=== PATIENT | female | born 1970 | race Caucasian/White ===

== ENCOUNTER → 2016-03-18 | Emergency (ER) | payer MEDICARE, MEDICAID ==
[2016-03-18 15:30] VITALS: BP 151/97
[2016-03-18 16:11] LABS: Urine Bacteria 1+ (Absent); Urine Bilirubin Negative (Negative); Urine Glucose 3+(>=500 mg/dL) (Negative); Urine Nitrite Positive (Negative)
--- NOTE | 2016-03-20 08:19 | ED ---
Progress - Progress Note Progress Note: Pt's urine cx reveals e. coli - pt was started on cipro - will wait for sensitivities to see if medication needs to be changed. Otherwise, appropriate at this time. Course/Dx - Diagnoses Provider Diagnoses: UTI (urinary tract infection)
--- NOTE | 2016-03-21 15:38 | ED ---
Progress - Progress Note Progress Note: Pt's urine cx reveals e. coli - pt was started on cipro - will wait for sensitivities to see if medication needs to be changed. Otherwise, appropriate at this time. Pt's sens confirms effectiveness of cipro - pt to continue - I've personally e- rx'd 2 x now. Yesterday and again today with change in pharmacy location. Both e -rx's confirmed being sent. Advised pt to call back if she had issues picking this up form pharmacy. F/u w/ PCP as directed. Course/Dx - Diagnoses Provider Diagnoses: UTI (urinary tract infection)
== END | disposition other institution (70) ==
LOC: ED 15:17
DX: N39.0 Urinary tract infection, site not specified (principal); Z53.21 Procedure and treatment not carried out due to patient leaving prior to being seen by health care provider
CPT/HCPCS: 81003; 81015; 87077; 87086; 87186

== ENCOUNTER 2016-03-19 09:30 | Emergency (ER) | payer MEDICARE, MEDICAID ==
[2016-03-19] MEDS ORDERED: NS 0.9% 1000 ML* 1,000 ML IV ONE (14:03)
[2016-03-19] MEDS ORDERED: Ketorolac INJ* 30 MG/ML 1 ML VIAL IV ONE (14:03)
--- NOTE | 2016-03-19 14:44 | RAD ---
CLINICAL HISTORY: Bilateral flank pain, UTI COMPARISON: None TECHNIQUE: Multiple contiguous axial CT scans were obtained of the abdomen and pelvis, without intravenous contrast enhancement. Coronal and sagittal multiplanar reformations are submitted for review. Oral contrast was not administered. FINDINGS: The study is limited by the lack of intravenous contrast. This limits evaluation of the solid organs and vasculature. LUNG BASES: The lung bases are clear. LIVER: The liver is diffusely low in attenuation compared to the spleen. There are no focal hepatic parenchymal masses. The liver is enlarged measuring 19.5 cm in long axis. BILE DUCTS: There is no intrahepatic or extrahepatic biliary dilatation. GALLBLADDER: The gallbladder is normal, without pericholecystic inflammatory change. PANCREAS: The pancreas is normal, without mass or ductal dilatation. SPLEEN: Normal in size and appearance. UPPER GI TRACT: Evaluation of the gastrointestinal tract is limited by incomplete gastric distention. The upper GI tract is unremarkable. SMALL BOWEL AND MESENTERY: The small bowel is normal in contour, course, and caliber. There is no obstruction or dilatation. COLON: The colon is normal in contour, course, caliber. There is no pericolonic inflammatory change. ADRENALS: Normal bilaterally. KIDNEYS: There is a right renal calyceal stone of the midpole measuring up to 0.6 cm. There is no hydronephrosis. There are no appreciable ureteral stones. BLADDER: The bladder is smooth in contour. PELVIC ORGANS: The uterus and adnexa are grossly normal for technique. AORTA: The aorta is normal. IVC: Unremarkable LYMPH NODES: There is no lymphadenopathy by size criteria. ABDOMINAL WALL: There is no evidence for abdominal wall hernia. BONES AND SOFT TISSUES: Mild degenerative changes are noted OTHER: None IMPRESSION: 1. NONOBSTRUCTING RIGHT RENAL CALYCEAL STONE. 2. FATTY LIVER WITH HEPATOMEGALY
[2016-03-19 15:04] LABS: Hematocrit 47 % (35-47); Hemoglobin 15.8 g/dl (12.0-16.0); Mean Corpuscular HGB Conc 34 g/dl (31-36); Mean Corpuscular Hemoglobin 29 pg (27-31); Mean Corpuscular Volume 87 fL (80-97); Mean Platelet Volume 9 um3 (7.4-10.4); Red Blood Count 5.43 10^6/ul (4.0-5.4); Red Cell Distribution Width 15 % (10.5-15); White Blood Count 8.9 10^3/ul (3.5-10.8)
[2016-03-19 15:09] LABS: Urine Bacteria 2+ (Absent); Urine Bilirubin Negative (Negative); Urine Glucose 3+(>=500 mg/dL) (Negative); Urine Nitrite Positive (Negative)
[2016-03-19 15:24] LABS: BUN/Creatinine Ratio 15.5 (8-20); C Reactive Protein 17.57 mg/L (< 5.00); Calcium 9.8 mg/dL (8.6-10.3); EGFR African American 143.3 (>60); EGFR Non-African American 111.4 (>60); Globulin 3.3 g/dL (2-4); Total Bilirubin 0.8 mg/dL (0.2-1.0); Total Protein 7.3 g/dL (6.4-8.9)
[2016-03-19] MEDS ORDERED: Ciprofloxacin 400MG IVPREMIX(* 400 MG/200 ML BAG IVPB SCH (16:00)
--- NOTE | 2016-03-19 16:44 | ED ---
Breana Sequeira Rebecca, scribed for Shaji Dover MD on 03/19/16 at 1406 . Abdominal Pain/Female - HPI Summary HPI Summary: Pt is a 45 y/o F who presents to ED c/o R flank pain. Pain began suddenly 2 weeks ago and has been constant since onset. Pain is discrete to the R flank, without radiation and is characterized as sharp and ranked 8/10. Sx aggravated and alleviated by nothing, unchanged by heat and ice. Additionally c/o dysuria. Denies N/V/D, difficulty urinating and constipation. No PMHx kidney sotnes. - History of Current Complaint Chief Complaint: EDFlankPain Stated Complaint: RT SIDE FLANK PAIN Time Seen by Provider: 03/19/16 13:51 Hx Obtained From: Patient Onset/Duration: Sudden Onset, Lasting Weeks - 2 weeks, Still Present Timing: Constant Severity Initially: Moderate Severity Currently: Severe Pain Intensity: 8 Pain Scale Used: 0-10 Numeric Location: Flank - Right Radiates: No Character: Sharp Aggravating Factor(s): Nothing Alleviating Factor(s): Nothing Associated Signs and Symptoms: Positive: Urinary Symptoms - Dysuria, Other: - Denies difficulty urinating and constipation. Negative: Nausea, Vomiting, Diarrhea Allergies/Adverse Reactions: Allergies Allergy/AdvReac Type Severity Reaction Status Date / Time Metformin Allergy Unknown Unknown Verified 04/09/15 17:43 Reaction Details PMH/Surg Hx/FS Hx/Imm Hx Endocrine/Hematology History: Reports: Hx Diabetes, Hx Anemia Denies: Hx Anticoagulant Therapy, Other Endocrine/Hematological Disorders Cardiovascular History: Reports: Hx Angina, Hx Hypercholesterolemia, Hx Hypertension Denies: Other Cardiovascular Problems/Disorders Respiratory History: Reports: Hx Asthma, Hx Chronic Obstructive Pulmonary Disease (COPD), Hx Sleep Apnea, Other Respiratory Problems/Disorders - SLEEP APNEA GI History: Reports: Hx Gastroesophageal Reflux Disease Denies: Other GI Disorders History: Denies: Other Problems/Disorders Musculoskeletal History: Reports: Hx Arthritis, Hx Back Problems Comment Only: Other Musculoskeletal History - Neuropathy Sensory History: Reports: Hx Contacts or Glasses, Hx Vision Problem Denies: Hx Cataracts, Hx Eye Injury, Hx Eye Prosthesis, Hx Glaucoma, Hx Macular Degeneration, Hx Deafness, Hx Hearing Aid, Other Sensory Impairments Opthamlomology History: Reports: Hx Contacts or Glasses, Hx Vision Problem Denies: Hx Cataracts, Hx Eye Injury, Hx Eye Prosthesis, Hx Glaucoma, Hx Macular Degeneration, Other Sensory Impairments Neurological History: Reports: Hx Developmental Delay, Hx Headaches, Hx Migraine , Other Neuro Impairments/Disorders - diabetic neuropathy Denies: Hx Dementia Psychiatric History: Reports: Hx Anxiety, Hx Eating Disorder, Hx Depression, Hx Panic Disorder, Hx Post Traumatic Stress Disorder, Hx Inpatient Treatment, Hx Community Mental Health Tx, Hx Suicide Attempt, Hx of Violent Episodes Against Others, Hx Substance Abuse, Other Psychiatric Issues/Disorders - borderline personality disorder Denies: Hx Schizophrenia - Surgical History Surgery Procedure, Year, and Place: tubal ligation Hx Anesthesia Reactions: No Infectious Disease History: No Infectious Disease History: Denies: Hx Clostridium Difficile, Hx Hepatitis, Hx Human Immunodeficiency Virus (HIV), Hx Shingles, Hx Tuberculosis, Traveled Outside the [place] in Last 30 Days - Family History Known Family History: Positive: Diabetes, Other - Lung CA - Social History Alcohol Use: None Substance Use Type: Reports: None Smoking Status (MU): Never Smoked Tobacco Review of Systems Positive: Abdominal Pain - R flank pain, Other - Denies constipation. Negative : Vomiting, Diarrhea, Nausea Positive: dysuria, other - Denies difficulty urinating All Other Systems Reviewed And Are Negative: Yes Physical Exam - Summary Physical Exam Summary: VITAL SIGNS: Reviewed. GENERAL: Patient is an obese female who is lying comfortable in the stretcher. Patient is not in any acute respiratory distress. HEAD AND FACE: Normocephalic and atraumatic. EYES: PERRLA, EOMI x 2, No injected conjunctiva. EARS: Hearing grossly intact. Ear canals and tympanic membranes are WNL. MOUTH: Oropharynx within normal limits. NECK: Supple, trachea is midline, no adenopathy, no JVD. CHEST: Symmetric, no tenderness at palpation LUNGS: Clear to auscultation bilaterally. No wheezing or crackles. CVS: RRR,, S1 and S2 present, no murmurs or gallops appreciated. ABDOMEN: Soft, non-tender. No signs of distention. Positive bowel sounds. No rebound no guarding, and no masses palpated. No abdominal bruit or pulsations. Positive Right CVAT's EXTREMITIES: FROM in all major joints, no edema, no cyanosis or clubbing. NEURO: Alert and oriented x 3. No acute neurological deficits. Speech is normal. SKIN: Dry and warm Vital Signs On Initial Exam: Initial Vitals Temp Pulse Resp BP Pulse Ox 97.1 F 111 16 135/86 96 03/19/16 09:32 03/19/16 09:32 03/19/16 09:32 03/19/16 09:32 03/19/16 09:32 Diagnostics - Vital Signs Vital Signs Temp Pulse Resp BP Pulse Ox 03/19/16 12:44 97.3 F 112 18 147/102 96 03/19/16 11:30 98.3 F 113 18 149/90 97 03/19/16 09:32 97.1 F 111 16 135/86 96 - Laboratory Lab Results: Lab Results 03/19/16 03/19/16 03/19/16 Range/Units 14:40 14:40 14:40 WBC 8.9 (3.5-10.8) 10^3/ul RBC 5.43 H (4.0-5.4) 10^6/ul Hgb 15.8 (12.0-16.0) g/dl Hct 47 (35-47) % MCV 87 (80-97) fL MCH 29 (27-31) pg MCHC 34 (31-36) g/dl RDW 15 (10.5-15) % Plt Count 239 (150-450) 10^3/ul MPV 9 (7.4-10.4) um3 Neut % (Auto) 60.1 (38-83) % Lymph % (Auto) 31.9 (25-47) % Potter % (Auto) 5.6 (1-9) % Eos % (Auto) 1.5 (0-6) % Baso % (Auto) 0.9 (0-2) % Absolute Neuts (auto) 5.3 (1.5-7.7) 10^3/ul Absolute Lymphs (auto) 2.8 (1.0-4.8) 10^3/ul Absolute Monos (auto) 0.5 (0-0.8) 10^3/ul Absolute Eos (auto) 0.1 (0-0.6) 10^3/ul Absolute Basos (auto) 0.1 (0-0.2) 10^3/ul Absolute Nucleated RBC 0.01 10^3/ul Nucleated RBC % 0.1 Sodium 130 L (133-145) mmol/L Potassium 4.0 (3.5-5.0) mmol/L Chloride 98 L (101-111) mmol/L Carbon Dioxide 24 (22-32) mmol/L Anion Gap 8 (2-11) mmol/L BUN 9 (6-24) mg/dL Creatinine 0.58 (0.51-0.95) mg/dL Est GFR ( Amer) 143.3 (>60) Est GFR (Non-Af Amer) 111.4 (>60) BUN/Creatinine Ratio 15.5 (8-20) Glucose 393 H (70-100) mg/dL Calcium 9.8 (8.6-10.3) mg/dL Total Bilirubin 0.80 (0.2-1.0) mg/dL AST 73 H (13-39) U/L ALT 88 H (7-52) U/L Alkaline Phosphatase 95 (34-104) U/L C-Reactive Protein 17.57 H (< 5.00) mg/L Total Protein 7.3 (6.4-8.9) g/dL Albumin 4.0 (3.2-5.2) g/dL Globulin 3.3 (2-4) g/dL Albumin/Globulin Ratio 1.2 (1-3) Lipase 36 (11.0-82.0) U/L Urine Color Yellow Urine Appearance Clear Urine pH 6.0 (5-9) Ur Specific [place] 1.035 H (1.010-1.030) Urine Protein Negative (Negative) Urine Ketones Trace H (Negative) Urine Blood Negative (Negative) Urine Nitrate Positive H (Negative) Urine Bilirubin Negative (Negative) Urine Urobilinogen Negative (Negative) Ur Leukocyte Esterase 2+ H (Negative) Urine WBC (Auto) 1+(6-10/hpf) H (Absent) Urine RBC (Auto) 1+(3-5/hpf) H (Absent) Ur Squamous Epith Cells Present H (Absent) Urine Bacteria 2+ H (Absent) Urine Glucose 3+(>=500 mg/dl) H (Negative) Result Diagrams: 03/19/16 14:40 03/19/16 14:40 Lab Statement: Any lab studies that have been ordered have been reviewed, and results considered in the medical decision making process. - CT CT Abd/Pel CT Interpretation Completed By: Radiologist - 1. NONOBSTRUCTING RIGHT RENAL CALYCEAL STONE. 2. FATTY LIVER WITH HEPATOMEGALY Re-Evaluation - Re-Evaluation First Eval Re-Evaluation Time: 15:39 Change: Improved Comment: Discussed results and pt is feeling much better. Abdominal Pain Fem Course/Dx - Course Course Of Treatment: 45 y/o F presents to ED with a CC of R flank pain. Reports pain has been there for approximately 2 weeks. Also reports dyrusia and urinary frequency. Test results within normal limits. Urinalysis has a positive UTI w/ nitrates. Abd/Pel CT shows no ureteral stones. The pt was given IV fluids and Toradol for the pain and the sx have improved. Also given ciprofloxacin for a UTI. The pt will be d/c to home with a follow up with PCP. I discussed all the findings and test results with the patient and patient. Patient was instructed to return to the emergency room immediately if any of the symptoms return or worsens. They understand and agree. They were explained the possibility of an early abdominal pathology which was not detected at this time despite the physical exam and testing. They understand and agree. Abdominal exam before discharge: Soft,NT. No signs of distention. BS present. No rebound no guarding, and no masses palpated. Patient is alert and oriented. Patient is hemodynamically stable. Patient is to follow up with primary care physician in the next 24 hours. Patient and patients parents agree and understands. - Diagnoses Provider Diagnoses: UTI (urinary tract infection), Kidney stone Discharge - Discharge Plan Condition: Stable Disposition: HOME Prescriptions: Ciprofloxacin TAB* [Cipro Tab*] 500 mg PO BID #6 tab Patient Education Materials: Urinary Tract Infection in Women (ED) Referrals: Alberto Gomez MD [Primary Care Provider] - 3 Days Additional Instructions: Take prescription for UTI as directed. Follow up with your primary care physician within the next 3 days. Return to ED for any returning or worsening symptoms. The documentation as recorded by the Breana puckett Rebecca accurately reflects the service I personally performed and the decisions made by me, Shaji Dover MD.
[2016-03-19 17:26] VITALS: BP 128/68
== END 2016-03-19 17:26 | disposition home or self-care (01) ==
LOC: ED 09:30
DX: R10.84 Generalized abdominal pain (principal); R30.0 Dysuria; N39.0 Urinary tract infection, site not specified; N20.0 Calculus of kidney
CPT/HCPCS: 36415; 74176; 80053; 81003; 83690; 85025; 86140; 96374; 96375; 99283; J0744; J1885

== ENCOUNTER 2016-09-08 11:34 | Observation (INO) | payer MEDICARE, MEDICAID ==
[2016-09-08] MEDS ORDERED: NS 0.9% 1000 ML* 1,000 ML IV SCH (11:45)
[2016-09-08 12:08] LABS: Hematocrit 46 % (35-47); Hemoglobin 15.8 g/dl (12.0-16.0); Mean Corpuscular HGB Conc 34 g/dl (31-36); Mean Corpuscular Hemoglobin 30 pg (27-31); Mean Corpuscular Volume 88 fL (80-97); Mean Platelet Volume 9 um3 (7.4-10.4); Red Blood Count 5.25 10^6/ul (4.0-5.4); Red Cell Distribution Width 15 % (10.5-15); White Blood Count 15.9 10^3/ul (3.5-10.8)
[2016-09-08 12:25] LABS: Albumin 4.2 g/dL (3.2-5.2); BUN/Creatinine Ratio 18.6 (8-20); C Reactive Protein 10.68 mg/L (< 5.00); Calcium 9.8 mg/dL (8.6-10.3); EGFR African American 90.6 (>60); EGFR Non-African American 70.4 (>60); Globulin 3.8 g/dL (2-4); Potassium 4.1 mmol/L (3.5-5.0); Total Bilirubin 0.9 mg/dL (0.2-1.0)
[2016-09-08 13:03] LABS: TSH (Thyroid Stimulating Horm) 2.07 mcIU/mL (0.34-5.60)
--- NOTE | 2016-09-08 14:08 | RAD ---
Indication: Dizziness. Diabetic with recent medication change. Comparison: November 15, 2008 Technique: Noncontrast CT vertex of skull through foramen magnum. Report: The sulci, ventricles, and basal cisterns are normal for age. Munoz matter white matter differentiation is preserved without evidence for edema. No intra or extra axial hemorrhage, mass, or fluid collection detected. Unremarkable visualized orbital contents. Indolent thickening of the inner table of the frontal bone. No suspicious calvarial or skull base lesions evident. Unremarkable scalp. The visualized paranasal sinuses and mastoid air spaces are clear. IMPRESSION: Negative unenhanced head CT.
--- NOTE | 2016-09-08 14:12 | RAD ---
INDICATION: Dizziness, elevated white blood count. COMPARISON: Comparison is made with a prior chest x-ray study from April 09, 2015. TECHNIQUE: A portable view of the chest was obtained. FINDINGS: Cardiac and mediastinal contours appear to be within normal limits. The lungs are underinflated and clear. No pleural effusion is seen. IMPRESSION: NO EVIDENCE FOR ACUTE DISEASE.
[2016-09-08 14:21] LABS: Urine Bacteria Absent (Absent); Urine Bilirubin Negative (Negative); Urine Glucose 3+(>=500 mg/dL) (Negative); Urine Nitrite Negative (Negative)
--- NOTE | 2016-09-08 17:42 | ED ---
Robbie Sequeira Salem, scribed for Cooper Ross MD on 09/08/16 at 1704 . Progress - Progress Note Progress Note: Patient was signed out from Dr. Cardoso. 46 y/o F who presents with dizziness since earlier today. She recently had her diabetic medication changed because her blood glucose level was in the 600s. After the change, her BG has been in the 180s. Course/Dx - Course Course Of Treatment: Dr. Durbin (neurology) @ 1650. Recommended pt be admitted for further stroke work up that could not be obtained at the bedside. - Diagnoses Provider Diagnoses: Dizziness - Provider Notifications Discussed Care Of Patient With: Jennifer Olvera Time Discussed With Above Provider: 17:00 Instructed by Provider To: Admit As Inpatient Admit/Transition Orders Completed By ED Provider: Yes Discharge - Discharge Plan Condition: Stable Disposition: ADMITTED TO [facility] The documentation as recorded by the robibeRobbie Salem accurately reflects the service I personally performed and the decisions made by , Cooper Ross MD.
[2016-09-08] MEDS ORDERED: Dextrose 50% Syringe 50 ML* 25 GM/50 ML SYRINGE IV PUSH PRN (18:47)
[2016-09-08] MEDS ORDERED: Albuterol HFA INHALER* 8 gm MDI INH PRN (20:01)
--- NOTE | 2016-09-08 20:49 | RAD ---
Indication: Dizziness since this morning. Recent diabetic medication change. Assess for CVA. Comparison: Noncontrast head CT of the same date. Technique: Idea2a 1.5 Era TS456A with GEM suite. MRI brain without contrast. Report: Diffusion series is negative for acute or subacute ischemia. Susceptibility series is negative for stigmata of hemosiderin deposition to indicate previous hemorrhage. Unremarkable cerebral sulci, ventricles, and basal cisterns. Normal patterns of signal intensity throughout the cerebrum and posterior fossa. No intra or extra-axial lesions or fluid collections evident. Preserved major intracranial flow-voids. Unremarkable orbital contents. Clear paranasal sinuses and mastoid air spaces. No suspicious calvarial or skull base lesion. Unremarkable scalp. IMPRESSION: No evidence for acute or subacute ischemia. Negative unenhanced MRI of the brain.
[2016-09-08] MEDS ORDERED: traZODone TAB* 100 MG PO SCH (21:00)
[2016-09-08] MEDS: Fluticasone NASAL SPRAY 50MCG* 16 gm SPRAY BTL BOTH NARES SCH (21:27)
[2016-09-08] MEDS: Pregabalin CAP(*) 50 MG PO SCH (21:28)
[2016-09-08] MEDS: Heparin VIAL(*) 5000 UNITS/ML VIAL (FIVE THOUSAND) SUBCUT SCH (21:29)
--- NOTE | 2016-09-09 01:48 | CONS ---
CONSULTATION NOTE: DATE OF CONSULT: 09/08/16 REASON FOR CONSULT: Dizziness. HISTORY OF PRESENT ILLNESS: Jennifer Mcnamara is a 46-year-old woman with a history of hypertension, diabetes mellitus type 2, high cholesterol, untreated sleep apnea, post traumatic stress disorder, depression, peripheral neuropathy, history of drug and alcohol use with no use for 5 years, now who presents with acute onset of dizziness. She indicates that she was feeling fine until she took her insulin this morning and she started feeling dizzy. It made it hard for her to walk. It is present at all time. Even if she still still and does not move, she feels like things are moving. She denies any double vision, change in speech, no numbness or weakness in her arms or legs. She denies any chest pain, chest pressure, or palpitations. Jennifer's past medical history and medications are listed below best I could get on history, she did not know all of her history. She follows with Dr. Gomez, primary care, and [facility] for mental healthcare. PAST MEDICAL HISTORY: Includes hypertension, diabetes mellitus type 2 complicated by peripheral neuropathy, sleep apnea for which she has a CPAP, but has not used it for at least a year, high cholesterol, major depression, post traumatic stress disorder, history in the past of drug and alcohol use; however , she indicates she has not used for 5 years. 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 MEDICATIONS: The best she can remember include: 1. Lisinopril 40 p.o. daily. 2. Another blood pressure medication, unknown name. 3. Lasix, unknown dose. 4. Insulin NovoLog 70/30 100 units in the morning prior to breakfast and 100 units prior to dinner. She has just had a breakfast prior today after her initial insulin. 5. Trulicity subcu q. week. 6. Abilify, unknown dose daily. 7. Lyrica 150 mg p.o. t.i.d. ALLERGIES: Include METFORMIN, which she indicates cause nausea. FAMILY HISTORY: Includes mother who has a pacemaker and diabetes. Father had diabetes and at 73. Brother with diabetes mellitus. Sister with thyroid disease. A cousin with Mediterranean thalassemia. She has 4 children who she indicates are healthy. She is not . SOCIAL HISTORY: Jennifer Mcnamara lives with her mom. She does not smoke, drink alcohol or do drugs. She takes care of her mother. REVIEW OF SYSTEMS: There has been no loss of vision. Things are not stable, however. There has been no change in speech. No new numbness or weakness of arms or legs. There has been change in her coordination and gait. She denies any difficulty or change with bowel or bladder habits. There has been no recent rash, fever, cough, drenching night sweats. PHYSICAL EXAM: On examination, Jennifer Mcnamara' most recent temperature was 97.5 degrees Fahrenheit measured temporarily, her pulse was 105, respiratory rate 18 , saturation was 95%, and blood pressure was 141/107. She had a regular cardiac rhythm. Her lungs were clear to auscultation. She had no evidence of peripheral edema. Her peripheral pulses were intact. She was awake, alert, appeared scared and tremulous. There was widened palpebral fissure bilaterally. She had normal language function. Her pupils were equal and responsive to light from 4 to 3 mm. Her fundi were flat. She had full extraocular movement. No clear nystagmus, but hard time holding her gaze in one direction, her eyes would start to drift. This was variable. Her facial expression, sensation, hearing were equal. Palate was upgoing. Tongue was midline. Sternocleidomastoid and trapezius were 5/5 in strength. There was no pronator drift; however, there was a bouncing of her limbs, which did not look like myoclonus, and seemed to affect smooth movement when trying to touch her nose with her left greater than right upper extremity. She gave good resistance in her arms and her legs, there was some variability. She also had a bounciness when holding up her legs and question of dysmetria bilaterally in the legs. Her reflexes were 1+ to 2+ in the upper extremities and symmetric, absent lower extremities. Toes were flexor response. She had difficulty feeling vibration in her legs; however, this was variable, in her fingertips was diminished. She was able to give correct answers on proprioception at the toes. She denied any asymmetries to pinprick, cold or light touch, or length- dependent changes, albeit, as stated she had a neuropathy. Gait was not tested because of clinical situation. DIAGNOSTIC STUDIES/LAB DATA: Includes CBC with a white count of 15.9 and absolute neutrophils were 10.3. Her complete metabolic panel showed glucose elevated at 186, C-reactive protein was 10.68, TSH was 2.07. Her urinalysis showed high esterase, squamous epithelial cells, hyaline casts as well as glucose that was 3+, noted to be equal to or over 500 mg/dL. She had a CT of the brain, which report is not showing any pathology. There were some hypodensities in the cerebellar area, but it is hard to tell whether that is artifact or significant. Her chest x-ray showed no infiltrates. IMPRESSION: Jennifer Mcnamara is a 46-year-old woman with history of hypertension, diabetes, high cholesterol, and sleep apnea, who presents with acute onset of dizziness, which to her is an instability that is present at all times. Differential diagnosis includes stroke in setting of significant risk factors. One can not exclude labyrinthitis, albeit no nystagmus was noted. Her exam, however, is abnormal. There are some non-physiologic findings which cloud the picture of whether there could be cerebellar stroke and accordingly MRI Brain is needed to clarify. Would admit her to hospital as she is quite impaired at this time, evaluate with MRI and then further stroke workup if pathology is found. Supportive care should be provided and she may need further help with treatment of diabetes. I had spoken to nursing in the ER about getting further outpatient records as the patient is not clear in all her medications and diagnoses. Her history and exam are somewhat variable clouding the picture. [id number]/[facility] #: [id number] KI
--- NOTE | 2016-09-09 04:03 | HP ---
CC: Dr. Alberto Gomez.* HISTORY AND PHYSICAL: DATE OF ADMISSION: 09/08/16 PRIMARY CARE PHYSICIAN: Dr. Alberto Gomez. ATTENDING PHYSICIAN: Dr. Colten Cole * (dictated by Renetta Mcclure NP). CHIEF COMPLAINT: Dizziness. HISTORY OF PRESENT ILLNESS: Ms. Mcnamara is a 46-year-old female with past medical history significant for diabetes mellitus, hypertension, hyperlipidemia, peripheral neuropathy, obstructive sleep apnea who presented to the hospital today with sudden onset of dizziness after taking hormone insulin this morning. The patient also reports difficulty walking due to the dizziness. She reports that she has had nothing to the make the dizziness get better, it is even present when she is lying still. The patient denies any recent fever, chills, chest pain, shortness of breath, nausea, vomiting, diarrhea. The patient reports an occasional cough. She reports nasal congestion for the last few weeks. She denies any visual changes such as blurry vision, double vision. The patient describes her dizziness as a room spinning. The patient denies any numbness or tingling or weakness. She denies any speech deficits. Due to the concern the patient presented to the emergency room for further evaluation of her symptoms. While in the emergency room, the patient received some normal saline. She had labs that were significant for an elevated white count of 15.9, she had a urinalysis significant for trace leukocyte esterase, squamous epithelial cells present and hyaline casts present. The patient's EKG showed a sinus rhythm. No acute signs of ischemia. The patient had a chest x-ray showing no active disease. She also had a head CT that was negative. The patient was seen in consultation by Neurology while in the emergency room. She continued to have the dizziness. Neurology was unable to determine if the patient's dizziness was central or peripherally caused and they recommend the patient be admitted for an MRI. Hospitalists were asked to evaluate the patient for admission. HOME MEDICATIONS: Include: 1. Trazodone 100 mg oral daily at bedtime. 2. Topamax 100 mg oral daily every morning. 3. Albuterol inhaler 1 puff inhalation every 4 hours as needed for shortness of breath. 4. Lyrica 150 mg oral 3 times daily. 5. Asmanex 220 mcg 2 puffs inhalation daily. 6. Metoprolol tartrate 25 mg oral twice daily. 7. Meloxicam 7.5 mg oral twice daily. 8. Lisinopril/hydrochlorothiazide 20/25 one tablet oral daily. 9. Lidocaine Jelly 2% apply topical twice daily. 10. NovoLog Mix 70/30 insulin 100 units subcutaneous twice daily. 11. Furosemide 40 mg oral twice daily. 12. Fluticasone nasal spray 2 sprays to both nares twice daily. 13. Etodolac 400 mg oral every 4 hours as needed for pain. 14. Trulicity 1.5 mg subcutaneous every 7 days. 15. Pristiq 100 mg oral daily. 16. Atorvastatin 40 mg oral daily. 17. Amlodipine 5 mg oral daily. 18. Abilify 10 mg oral daily. ALLERGIES: Include METFORMIN causes a GI upset. FAMILY HISTORY: The patient's father had a history of a myocardial infarction. The patient's mother and father had a history of diabetes mellitus. The patient 's father had a history of unknown cancer. She had a history of a cousin who had a CVA at age 60. SOCIAL HISTORY: The patient denies tobacco, alcohol or drug use. She is a former alcoholic and polysubstance drug abuser, but has been clean for 5 years. The patient is disabled. She lives with her mother. Her mother Karen Mcnamara will be her surrogate decision maker in the event that she is unable to make decisions for herself. REVIEW OF SYSTEMS: I performed a 14-point review of systems. All the pertinent positives and negatives are mentioned in the history of present illness. Remaining review of systems are negative. PHYSICAL EXAMINATION GENERAL APPEARANCE: The patient is alert, pleasant appears to be in no acute distress. VITAL SIGNS: Temperature 97.5, heart rate 105, respiratory rate 18, O2 sat 95% on room air, blood pressure 141/70. HEENT: Normocephalic, atraumatic. Pupils are equal and reactive to light. Extraocular movements are intact. NECK: Supple. RESPIRATORY: There is no accessory muscle use and the lungs are clear to auscultation bilaterally. CARDIOVASCULAR: Regular rate and rhythm. S1, S2 present. There is no murmur, rubs or gallops. ABDOMEN: Soft, nontender, nondistended. Bowel sounds present x4. EXTREMITIES: There is no lower extremity edema. DP and PT pulses are 2+ and symmetric. MUSCULOSKELETAL: There is no clubbing or cyanosis noted. The patient exhibits good strength in all extremities. NEUROLOGIC: The patient is alert and oriented x4. Cranial nerves II through XII are grossly intact. The patient is able to perform pakron-oc-smey bilaterally without difficulty. She is also able to perform heel from ankle to cardona bilaterally without difficulty. The patient is able to lift both lower extremities off of the bed without difficulty. No nystagmus was noted. Hand willower were equal. The patient's smile was symmetric and tongue was midline. PSYCHOLOGICAL: The patient is calm and cooperative. SKIN: There is no rashes or abnormalities seen. DIAGNOSTIC STUDIES/LABORATORY DATA: Sodium 137, potassium 4.1, chloride 105, CO2 25, BUN 16, creatinine 0.86, glucose 186. CRP 10.68, TSH 2.07. White blood cell count 15.9, hemoglobin 15.8, hematocrit 46 and platelet count 355. Urinalysis significant for trace leukocyte esterase, present squamous epithelial cells, hyaline casts present and glucose 3+. EKG from today shows a sinus rhythm at the rate of 98. There are no signs of acute ischemia and this EKG is similar to previous EKG from 05/16/15. 1. Chest x-ray from today, radiologist's impression: No evidence for active disease. 2. Head CT from today, radiologist's impression: Negative unenhanced head CT. IMPRESSION: Ms. Mcnamara is a 46-year-old female with past medical history significant for diabetes mellitus, hypertension, hyperlipidemia, obstructive sleep apnea and peripheral neuropathy who presents to the emergency room with complaints of dizziness. She will be admitted under observation for dizziness, rule out cerebrovascular accident. ASSESSMENT/PLAN: 1. Dizziness. Rule out cerebrovascular accident. The patient will be monitored on telemetry. She will have neurological checks. Neurology has already seen the patient in consultation and recommends that patient have an MRI. We will hold on further testing until the patient's MRI is completed. We will check a fasting lipid panel in the morning in addition to a hemoglobin A1C. We will also check orthostatic vital signs. 2. Leucocytosis. Unclear cause at this time. Chest xray and urinalysis negative. We will recheck a CBC in the morning. Pt denies any recent cold symptoms or fevers. 3. Diabetes mellitus. We will hold the patient's 70/30 and Trulicity. We will place her on Lispro sliding scale for now and add in Lantus if needed. We will check fingersticks a.c. and h.s. We will make further recommendation based off of what the patient's hemoglobin A1c is. 4. Hypertension. For now we are going to hold the patient's lisinopril, hydrochlorothiazide, metoprolol, furosemide and amlodipine as the patient has been hypotensive to normotensive during her time in the emergency room. 5. Hyperlipidemia. The patient is on atorvastatin. We will continue her atorvastatin and adjust as needed after her fasting lipid panel in the morning. 6. Obstructive sleep apnea. The patient is supposed to use a CPAP. The patient told Dr. Durbin that she has been noncompliant although she did not tell me that. We will continue the patient's CPAP while she in the hospital. 7. Asthma. The patient does not appear to be in acute asthma exacerbation. We will continue her home Asmanex and have an albuterol inhaler available as needed for any shortness of breath. 7. Depression. The patient will be continued on her home Abilify, Pristiq, trazodone and Topamax. 9. Fluids, electrolytes and nutrition: The patient will be on a consistent carbohydrate and heart healthy diet. 10. Code status: Full code. 11. DVTs prophylaxis: The patient is a moderate risk and will have subcu heparin. 12. Disposition: Observation. TIME SPENT: Time spent for this admission was 60 minutes, greater than half the time was spent with the patient discussing past medical history, medications and the events leading up to her arrival today and performing a physical examination. The case has been reviewed with the attending, Dr. Cole, who agrees with the plan of care. Reviewed by STANLEY FELICIANO 09/11/16 1520 [id number]/[facility] #: [id number] KI
[2016-09-09] MEDS: Heparin VIAL(*) 5000 UNITS/ML VIAL (FIVE THOUSAND) SUBCUT SCH (05:48)
[2016-09-09 05:57] LABS: Hematocrit 44 % (35-47); Hemoglobin 14.6 g/dl (12.0-16.0); Mean Corpuscular HGB Conc 34 g/dl (31-36); Mean Corpuscular Hemoglobin 30 pg (27-31); Mean Corpuscular Volume 89 fL (80-97); Mean Platelet Volume 9 um3 (7.4-10.4); Red Blood Count 4.88 10^6/ul (4.0-5.4); Red Cell Distribution Width 15 % (10.5-15); White Blood Count 12.6 10^3/ul (3.5-10.8)
[2016-09-09] MEDS: Pregabalin CAP(*) 50 MG PO SCH (08:34)
[2016-09-09] MEDS: Fluticasone NASAL SPRAY 50MCG* 16 gm SPRAY BTL BOTH NARES SCH (08:38)
[2016-09-09] MEDS: Insulin LISPRO* 1 UNITS UNIT SUBCUT SCH ×2 (08:39→12:41)
[2016-09-09] MEDS ORDERED: ARIPiprazole TAB* 5 MG PO SCH (09:00)
[2016-09-09] MEDS ORDERED: Mometasone 220 MCG MDI INH SCH (09:00)
[2016-09-09] MEDS ORDERED: Desvenlafaxine (NF) 50 MG TAB PO SCH (09:00)
[2016-09-09] MEDS ORDERED: Furosemide TAB* 40 MG PO SCH (09:00)
[2016-09-09] MEDS ORDERED: Topiramate TAB(*) 100 MG PO SCH (09:00)
[2016-09-09] MEDS ORDERED: Atorvastatin* 40 MG TAB PO SCH (09:00)
--- NOTE | 2016-09-09 11:48 | PN ---
Subjective Date of Service: 09/09/16 Interval History: Ms. Mcnamara states that her dizziness is much improved today and she feels ready to go home. She remains a bit unsteady on her feet but denies dizziness with bed mobility or Objective Active Medications: Albuterol (Ventolin Hfa Inhaler*) 2 puff INH Q6H PRN Aripiprazole (Abilify Tab*) 10 mg PO DAILY RONNELL Atorvastatin Calcium (Lipitor*) 40 mg PO DAILY RONNELL Desvenlafaxine Succinate (Pristiq (Nf)) 100 mg PO DAILY RONNELL Dextrose (D50w Syringe 50 Ml*) 12.5 gm IV PUSH .FOR FS < 60 - SS PRN Fluticasone Propionate (Flonase Nasal Sayner 50mcg*) 2 spray BOTH NARES BID RONNELL Furosemide (Lasix Tab*) 40 mg PO 0900,1800 RONNELL Heparin Sodium (Porcine) (Heparin Vial(*)) 5,000 units SUBCUT Q8HR RONNELL Insulin Human Lispro (Humalog*) 0 - 15 units SUBCUT AC RONNELL Mometasone Furoate (Asmanex 220 Mcg Mdi *) 2 puff INH DAILY RONNELL Pregabalin (Lyrica Cap(*)) 150 mg PO TID RONNELL Topiramate (Topamax(*)) 100 mg PO QAM RONNELL Trazodone HCl (Desyrel Tab*) [facility] Vital Signs 09/08/16 09/08/16 09/08/16 17:30 17:45 18:00 Temperature Pulse Rate 95 95 Respiratory 18 16 22 Rate Blood Pressure 92/61 97/64 (mmHg) O2 Sat by Pulse 96 94 Oximetry 09/08/16 09/08/16 09/08/16 18:30 19:03 21:28 Temperature 98.3 F Pulse Rate 96 102 Respiratory 18 18 18 Rate Blood Pressure 106/67 112/69 (mmHg) O2 Sat by Pulse 95 97 Oximetry 09/08/16 09/09/16 09/09/16 23:28 00:40 04:05 Temperature 98.0 F 98.5 F Pulse Rate 100 111 Respiratory 16 16 16 Rate Blood Pressure 117/65 107/69 (mmHg) O2 Sat by Pulse 93 91 Oximetry 09/09/16 09/09/16 09/09/16 04:06 04:08 07:49 Temperature 98.1 F 98.3 F 97.6 F Pulse Rate 98 145 108 Respiratory 18 20 16 Rate Blood Pressure 119/71 128/60 126/79 (mmHg) O2 Sat by Pulse 98 97 95 Oximetry 09/09/16 09/09/16 09/09/16 08:26 08:34 10:34 Temperature Pulse Rate 120 Respiratory 14 18 16 Rate Blood Pressure (mmHg) O2 Sat by Pulse 96 Oximetry Oxygen Devices in Use Now: None Appearance: Female sitting up in bed in NAD Eyes: No Scleral Icterus Ears/Nose/Mouth/Throat: Mucous Membranes Moist Neck: Trachea Midline Respiratory: Symmetrical Chest Expansion and Respiratory Effort, Clear to Auscultation Cardiovascular: NL Sounds; No Murmurs; No JVD, No Edema Abdominal: NL Sounds; No Tenderness; No Distention Lymphatic: No Cervical Adenopathy Extremities: No Edema Skin: No Rash or Ulcers Neurological: Alert and Oriented x 3, NL Muscle Strength and Tone Nutrition: Taking PO's Result Diagrams: 09/09/16 05:29 09/08/16 11:59 Additional Lab and Data: Lab Results 09/08/16 09/08/16 09/08/16 Range/Units 11:59 11:59 11:59 WBC 15.9 H (3.5-10.8) 10^3/ul RBC 5.25 (4.0-5.4) 10^6/ul Hgb 15.8 (12.0-16.0) g/dl Hct 46 (35-47) % MCV 88 (80-97) fL MCH 30 (27-31) pg MCHC 34 (31-36) g/dl RDW 15 (10.5-15) % Plt Count 355 (150-450) 10^3/ul MPV 9 (7.4-10.4) um3 Neut % (Auto) 64.7 (38-83) % Lymph % (Auto) 26.2 (25-47) % [place] % (Auto) 6.6 (1-9) % Eos % (Auto) 1.4 (0-6) % Baso % (Auto) 1.1 (0-2) % Absolute Neuts (auto) 10.3 H (1.5-7.7) 10^3/ul Absolute Lymphs (auto) 4.2 (1.0-4.8) 10^3/ul Absolute Monos (auto) 1.0 H (0-0.8) 10^3/ul Absolute Eos (auto) 0.2 (0-0.6) 10^3/ul Absolute Basos (auto) 0.2 (0-0.2) 10^3/ul Absolute Nucleated RBC 0.01 10^3/ul Nucleated RBC % 0.1 INR (Anticoag Therapy) 0.92 (0.89-1.11) APTT 30.9 (26.0-36.3) seconds Sodium (133-145) mmol/L Potassium (3.5-5.0) mmol/L Chloride (101-111) mmol/L Carbon Dioxide (22-32) mmol/L Anion Gap (2-11) mmol/L BUN (6-24) mg/dL Creatinine (0.51-0.95) mg/dL Est GFR ( Amer) (>60) Est GFR (Non-Af Amer) (>60) BUN/Creatinine Ratio (8-20) Glucose (70-100) mg/dL Lactic Acid (0.5-2.0) mmol/L Calcium (8.6-10.3) mg/dL Magnesium (1.9-2.7) mg/dL Total Bilirubin (0.2-1.0) mg/dL AST (13-39) U/L ALT (7-52) U/L Alkaline Phosphatase (34-104) U/L Total Creatine Kinase (10-223) U/L CK-MB (CK-2) (0.6-6.3) ng/mL Troponin I (<0.04) ng/mL C-Reactive Protein (< 5.00) mg/L B-Natriuretic Peptide 16 ( - 100) pg/mL Total Protein (6.4-8.9) g/dL Albumin (3.2-5.2) g/dL Globulin (2-4) g/dL Albumin/Globulin Ratio (1-3) Lipase (11.0-82.0) U/L TSH (0.34-5.60) mcIU/mL 09/08/16 09/08/16 Range/Units 11:59 11:59 WBC (3.5-10.8) 10^3/ul RBC (4.0-5.4) 10^6/ul Hgb (12.0-16.0) g/dl Hct (35-47) % MCV (80-97) fL MCH (27-31) pg MCHC (31-36) g/dl RDW (10.5-15) % Plt Count (150-450) 10^3/ul MPV (7.4-10.4) um3 Neut % (Auto) (38-83) % Lymph % (Auto) (25-47) % [place] % (Auto) (1-9) % Eos % (Auto) (0-6) % Baso % (Auto) (0-2) % Absolute Neuts (auto) (1.5-7.7) 10^3/ul Absolute Lymphs (auto) (1.0-4.8) 10^3/ul Absolute Monos (auto) (0-0.8) 10^3/ul Absolute Eos (auto) (0-0.6) 10^3/ul Absolute Basos (auto) (0-0.2) 10^3/ul Absolute Nucleated RBC 10^3/ul Nucleated RBC % INR (Anticoag Therapy) (0.89-1.11) APTT (26.0-36.3) seconds Sodium 137 (133-145) mmol/L Potassium 4.1 (3.5-5.0) mmol/L Chloride 105 (101-111) mmol/L Carbon Dioxide 25 (22-32) mmol/L Anion Gap 7 (2-11) mmol/L BUN 16 (6-24) mg/dL Creatinine 0.86 (0.51-0.95) mg/dL Est GFR ( Amer) 90.6 (>60) Est GFR (Non-Af Amer) 70.4 (>60) BUN/Creatinine Ratio 18.6 (8-20) Glucose 186 H (70-100) mg/dL Lactic Acid 1.1 (0.5-2.0) mmol/L Calcium 9.8 (8.6-10.3) mg/dL Magnesium 2.0 (1.9-2.7) mg/dL Total Bilirubin 0.90 (0.2-1.0) mg/dL AST 22 (13-39) U/L ALT 30 (7-52) U/L Alkaline Phosphatase 98 (34-104) U/L Total Creatine Kinase 70 (10-223) U/L CK-MB (CK-2) 2.0 (0.6-6.3) ng/mL Troponin I 0.00 (<0.04) ng/mL C-Reactive Protein 10.68 H (< 5.00) mg/L B-Natriuretic Peptide ( - 100) pg/mL Total Protein 8.0 (6.4-8.9) g/dL Albumin 4.2 (3.2-5.2) g/dL Globulin 3.8 (2-4) g/dL Albumin/Globulin Ratio 1.1 (1-3) Lipase 29 (11.0-82.0) U/L TSH 2.07 (0.34-5.60) mcIU/mL Assess/Plan/Problems-Billing Assessment: Ms. Mcnamara is a 46 yo female with a PMH of DM, HTN, HLD, peripheral neuropathy, and IGLESIA who was admitted on 09/09/16 with dizziness with concern for possible ischemic CVA. - Patient Problems (1) Dizziness Comment: - Resolved today. - Appreciate neurology consult. CT and MRI brain negative. - Suspect dizziness secondary to labrynthitis. (2) Diabetes Comment: - Hgb1ac 10.7. - Strongly encouraged patient to follow up with PCP and perhaps [facility]. - Resume home meds. (3) HTN (hypertension) Comment: - SBP well running 80-110s while only on furosemide. - Plan for patient to continue furosemide but hold metoprolol and amlodipine until follow up with PCP. (4) HLD (hyperlipidemia) Comment: - Continue atorvastatin. (5) DVT prophylaxis Comment: - Heparin subQ (6) Full code status Status and Disposition: OBV. Discharge to home.
[2016-09-09 11:57] VITALS: BP 115/66
[2016-09-09] MEDS ORDERED: Metoprolol Tartrate TAB* 25 MG PO ONE (12:20)
--- NOTE | 2016-09-09 20:10 | CONS ---
CONSULTATION REPORT: DATE OF CONSULT: 09/09/16 HISTORY OF PRESENT ILLNESS: Jennifer Mcnamara was seen in the emergency room yesterday for acute onset of dizziness with shakiness and had a significantly abnormal examination with some nonphysiologic findings. This occurred in the setting of hypertension, diabetes type 2 with peripheral neuropathy, high cholesterol, untreated sleep apnea, major depression, posttraumatic stress disorder. Since admitted, she had an MRI of the brain which showed no evidence of stroke. Her symptoms have markedly improved and she is feeling close to normal at this time. She has just a little bit of shakiness left. It was revealed on today's visit that there has been significant stress taking care of her mother at home and her mother is refusing help at home. In the hospital though, it has been noted her glucose control is quite poor with a hemoglobin A1c of 10.7 and elevated glucose on laboratory testing at 264. MEDICATIONS: List was reviewed. PHYSICAL EXAM: On examination today, Jennifer Mcnamara' blood pressure was 115/66, her pulse was 110, her respiratory rate was 16, her oxygen was 93%, temperature was 97.3 degrees Fahrenheit. She had a regular cardiac rhythm. Her lungs were clear to auscultation. There was no carotid bruit. At the time of examination , her pulse was improved, at ~ 80. She was awake, alert, articulate. She had full extraocular movements with no nystagmus. Full russell to confrontation. Her facial expression was symmetric, there was no dysarthria. There was normal bulk and tone, no pronator drift. She gave good strength in her upper and lower extremities with normal vaesbr-hx-riga and goza-vg-amwg movements. No evidence of tremor was noted. Her reflexes were 1+ in the upper extremities, absent in the lower extremities. Her Romberg was negative. She walked independently without difficulty. There was no evidence of ataxia. DIAGNOSTIC STUDIES/LAB DATA: Data includes complete blood count with a total white count of 12.6 which has improved from 15.9 on admission. Her glucose was 264 this morning, repeat at 359. Her lipid profile showed a total cholesterol of 141, LDL of 50, HDL of 29, with triglycerides 311. Her TSH on admission was 2.07. Her MRI of the brain was reviewed directly and showed no evidence of new ischemic lesion and no evidence of any lesion that would explain her symptoms on presentation. IMPRESSION: Jennifer Mcnamara is a 46-year-old woman with history of diabetes with peripheral neuropathy under poor control, hypertension, high cholesterol, untreated sleep apnea, posttraumatic stress disorder, major depression who has been under quite a bit of stress taking care of her mother. She came in with diffuse shaking and symptoms of dizziness which have now resolved. Her MRI was negative for stroke or any lesion to explain her symptoms. Certainly, stress may have contributed to presentation. There was significant nonphysiologic findings on exam. Hospitalist team are working with her regarding education on her other internal medicine problems including her glucose control; this has been in poor control in the past per patient report. She needs to work closely with her primary care. At this point, no further neurologic input is suggested. TIME SPENT: Over 25 minutes was spent in direct [id number] patient care, over 50% of the time was spent in education and counseling regarding the above issues. All questions were answered. [id number]/[facility] #: [id number] KI
--- NOTE | 2016-09-10 16:12 | DS ---
CC: Dr. Gomez * [facility] MEDICINE DISCHARGE SUMMARY: DATE OF ADMISSION: 09/08/16 DATE OF DISCHARGE: 09/09/16 ATTENDING PHYSICIAN: Dr. Raf Ramos *(dictation provided by Dulce Maria Kumar NP ). PRIMARY CARE PHYSICIAN: Dr. Gomez. PRIMARY DIAGNOSIS: Dizziness with suspected labyrinthitis. SECONDARY DIAGNOSES: 1. Type 2 diabetes, insulin dependent. 2. Hypertension. 3. Obstructive sleep apnea. 4. Asthma. 5. Gastroesophageal reflux disease. 6. History of alcoholism. MEDICATIONS: At the time of discharge are: 1. Albuterol inhaler p.r.n. 2. Abilify 10 mg p.o. daily. 3. Atorvastatin 40 mg daily. 4. Desvenlafaxine 100 mg p.o. daily. 5. Fluticasone nasal spray b.i.d. 6. Furosemide 40 mg b.i.d. 7. Asmanex 2 puffs inhaled daily. 8. Pregabalin 150 mg p.o. t.i.d. 9. Topamax 100 mg p.o. q.a.m. 10. Trazodone 100 mg p.o. at bedtime. 11. Trulicity 1.5 mg subcutaneously q.7 days. 12. Lodine 400 mg p.o. q.8 hours p.r.n. 13. NovoLog 70/30, 80 units subcutaneously b.i.d. 14. Lidocaine jelly p.r.n. 15. Mobic 7.5 mg p.o. b.i.d. 16. Metoprolol tartrate 25 mg p.o. b.i.d. Hold lisinopril/hydrochlorothiazide until followup with primary care. HOSPITAL COURSE: Ms. Mcnamara is a 46-year-old female with past medical history of diabetes, hypertension, hyperlipidemia, peripheral neuropathy, and obstructive sleep apnea, who presented to the hospital on 09/08/16 with concern for dizziness. Please see the dictated H and P from Renetta Arredondo for complete details. In brief, the patient had reported dizziness described as a room spinning sensation. In the emergency room, she had an elevated white blood cell count of 15.9. Urinalysis was positive for trace leuk esterase only with no bacteria. Her EKG showed sinus rhythm with no evidence of ischemia. She had a CT of the brain that was negative. Ms. Mcnamara was placed in the hospital overnight for observation. She was seen in consultation by Dr. Durbin from Neurology who thought that perhaps the patient did have labyrinthitis, but was concerned for posterior CVA and therefore, she went on for an MRI of the brain. MRI of the brain was read as follows "no evidence for acute or subacute ischemia, negative unenhanced MRI of the brain." This morning, Ms. Mcnamara states that she is feeling much better. She states that she still feels a little bit unsteady on her feet, but does not have any clear dizziness. She has been ambulating in her room without difficulty and she is eager for discharge to home. Ms. Mcnamara is medically stable for discharge to home. I have noted that while inpatient, her blood pressure has been low running systolically 89 to about 120. This is while holding her lisinopril/ hydrochlorothiazide. My recommendation is that she continue on her furosemide and her metoprolol but that she hold lisinopril/hydrochlorothiazide until she follows up with Dr. Gomez which should be on of this week. I discussed this with the patient and she knows that she should take her blood pressure at home and provide this to Dr. Gomez. I also noted during her hospitalization that her blood sugar has been quite elevated and that her hemoglobin A1c is 10.7. This had been a longstanding problem for the patient. She states that she will be following with Dr. Gomez and she also reports following up with the [facility] in the past. DISPOSITION: Home. DIET: Consistent carbohydrate, low fat, low salt. ACTIVITY: As tolerated. FOLLOWUP PLANS: Please follow up with Dr. Gomez on as arranged. TIME SPENT: Approximately 75 minutes was spent on the discharge of this patient , more than half that time spent with the patient at the bedside reviewing the events leading up to this hospitalization, performing the physical examination, and reviewing the plan of care. DULCE MARIA KUMAR NP [id number]/[facility] #: [id number] KI
== END 2016-09-09 15:12 | disposition home or self-care (01) ==
LOC: ED 11:34 → MEDTELE 17:00
PROVIDERS: ADMIT Internal Medicine; ATTEND Internal Medicine
DX: R42 Dizziness and giddiness (principal); E11.42 Type 2 diabetes mellitus with diabetic polyneuropathy; Z79.4 Long term (current) use of insulin; I10 Essential (primary) hypertension; G47.33 Obstructive sleep apnea (adult) (pediatric); J45.909 Unspecified asthma, uncomplicated; K21.9 Gastro-esophageal reflux disease without esophagitis; E78.5 Hyperlipidemia, unspecified; F10.20 Alcohol dependence, uncomplicated; Z88.8 Allergy status to other drugs, medicaments and biological substances; Z79.899 Other long term (current) drug therapy; F32.9 Major depressive disorder, single episode, unspecified
CPT/HCPCS: 36415; 70450; 70551; 71010; 80053; 80061; 81003; 81015; 82550; 82553; 82947; 83036; 83605; 83690; 83735; 83880; 84443; 84484; 85025; 85610; 85730; 86140; 87086; 93005; 94640; 96360; 96372; 99284; A9270-GY; G0378; J1644

== ENCOUNTER 2016-12-15 10:03 | Observation (INO) | payer MEDICARE, MEDICAID ==
[2016-12-15] MEDS ORDERED: NS 0.9% 1000 ML* 1,000 ML IV ONE ×2 (10:32→12:26)
[2016-12-15 11:05] LABS: Hematocrit 44 % (35-47); Hemoglobin 14.8 g/dl (12.0-16.0); Mean Corpuscular HGB Conc 34 g/dl (31-36); Mean Corpuscular Hemoglobin 29 pg (27-31); Mean Corpuscular Volume 87 fL (80-97); Mean Platelet Volume 8 um3 (7.4-10.4); Red Cell Distribution Width 15 % (10.5-15); White Blood Count 11.4 10^3/ul (3.5-10.8)
[2016-12-15 11:19] LABS: Acetaminophen < 15 mcg/mL; Alcohol < 10 mg/dL (<10); Salicylate < 2.50 mg/dL (<30)
[2016-12-15 11:23] LABS: Troponin I 0.01 ng/mL (<0.04)
[2016-12-15 11:34] LABS: TSH (Thyroid Stimulating Horm) 1.38 mcIU/mL (0.34-5.60)
[2016-12-15 11:38] LABS: ALT 29 U/L (7-52); Albumin 3.9 g/dL (3.2-5.2); Alkaline Phosphatase 115 U/L (34-104); BUN/Creatinine Ratio 30.1 (8-20); Blood Urea Nitrogen 25 mg/dL (6-24); CO2 Carbon Dioxide 25 mmol/L (22-32); Calcium 9.4 mg/dL (8.6-10.3); Chloride 98 mmol/L (101-111); EGFR African American 94.4 (>60); EGFR Non-African American 73.4 (>60); Globulin 3.8 g/dL (2-4); Glucose 255 mg/dL (70-100); Magnesium 1.7 mg/dL (1.9-2.7); Sodium 134 mmol/L (133-145); Total Protein 7.7 g/dL (6.4-8.9)
[2016-12-15 12:10] LABS: Anion Gap 11 mmol/L (2-11)
[2016-12-15 12:14] LABS: Urine Bacteria Absent (Absent); Urine Bilirubin Negative (Negative); Urine Glucose Negative (Negative); Urine Nitrite Negative (Negative)
[2016-12-15 12:16] LABS: Benzodiazepine Urine Screen None Detected (None Detect)
--- NOTE | 2016-12-15 14:38 | RAD ---
INDICATION: Ataxia. COMPARISON: Comparison is made with prior CT and MRI exams of the brain from September 08, 2016. TECHNIQUE: Contiguous axial sections of the brain were obtained from the skull base to the vertex without contrast. FINDINGS: The ventricles, cisterns and sulci are within normal limits. No significant focal abnormality or mass effect is seen. There is no evidence for hemorrhage. No significant focal osseous abnormality is seen. The visualized portion of the paranasal sinuses and mastoid air cells appear clear. IMPRESSION: NO EVIDENCE FOR GROSS ACUTE INFARCT, MASS EFFECT OR HEMORRHAGE.
--- NOTE | 2016-12-15 16:26 | RAD ---
HISTORY: Weakness, disorientation and inability to follow basic commands. COMPARISONS: MR the brain dated September 08, 2016 TECHNIQUE: The following sequences were obtained of the head: Sagittal T1-weighted images, axial T2-weighted images, axial FLAIR images, axial susceptibility weighted images, axial T1-weighted images. Additionally, axial diffusion-weighted images were obtained with calculated apparent diffusion coefficients.. FINDINGS: HEMORRHAGE/INFARCT: There is no hemorrhage or acute infarct. MASSES/SHIFT: There is no mass or shift. EXTRA-AXIAL SPACES/MENINGES: There are no extra-axial fluid collections. SULCI AND VENTRICLES: The sulci and ventricles are normal in size and position for the patient's stated age. CEREBRUM: There are no focal parenchymal abnormalities. BRAINSTEM: There are no focal parenchymal abnormalities. CEREBELLUM: There are no focal parenchymal abnormalities. The cerebellar tonsils are normal in size and position. SELLA: The sella is normal. PINEAL: The pineal region is clear. CP ANGLE/TEMPORAL BONES: The labyrinthine structures are grossly normal. VESSELS: Normal flow-voids are noted within the visualized vertebral vasculature. DIFFUSION ABNORMALITIES: There are no diffusion abnormalities. PARANASAL SINUSES/MASTOIDS: The paranasal sinuses are clear. ORBITS: The orbits are unremarkable. BONES AND SOFT TISSUE: No bone or soft tissue abnormalities are noted. IMPRESSION: NORMAL MRI OF THE BRAIN.
[2016-12-15 18:00] LABS: C Reactive Protein 22.35 mg/L (< 5.00)
[2016-12-15] MEDS ORDERED: Ondansetron INJ* 2 MG/ML VIAL IV PRN (18:04)
[2016-12-15] MEDS ORDERED: Magnesium Sulfate 2 GM IV* 2 GM/50 ML BAG IVPB ONE (18:04)
[2016-12-15] MEDS ORDERED: Dextrose 50% Syringe 50 ML* 25 GM/50 ML SYRINGE IV PUSH PRN (18:04)
[2016-12-15] MEDS ORDERED: Acetaminophen TAB* 325 MG PO PRN (18:04)
[2016-12-15] MEDS ORDERED: Potassium Chlor TAB* 20 MEQ TAB.ER PO ONE (18:04)
[2016-12-15] MEDS ORDERED: Albuterol 2.5 MG/3 ML NEB.SOL* (0.083%) INH PRN (18:11)
[2016-12-15] MEDS ORDERED: NS 0.9% 1000 ML* 1,000 ML IV SCH (18:15)
[2016-12-15 19:12] LABS: Erythrocyte Sed Rate 29 mm/Hr (0-14)
--- NOTE | 2016-12-15 20:54 | ED ---
Jaylyn Sequeira Nilda, scribed for Clifton Long MD on 12/15/16 at 1018 . Dizziness - HPI Summary HPI Summary: This patient is a 46 year old F BIBA presenting to [facility] accompanied by family member with a chief complaint of constant dizziness since accidentally overdosing on psych medications this morning. The patient rates the pain 0/10 in severity. Symptoms alleviated by nothing. Patient reports weakness but denies nausea. - History Of Current Complaint Chief Complaint: EDAltMentalStatus Stated Complaint: DIZZY Time Seen by Provider: 12/15/16 10:14 Hx Obtained From: Patient, Family/Movie Actor Onset/Duration: Still Present Timing: Constant Character: Weak, Dizzy Alleviating Factor(s): Nothing Associated Signs And Symptoms: Negative: Nausea - Allergies/Home Medications Allergies/Adverse Reactions: Allergies Allergy/AdvReac Type Severity Reaction Status Date / Time Metformin Allergy Unknown Unknown Verified 04/09/15 17:43 Reaction Details PMH/Surg Hx/FS Hx/Imm Hx Endocrine/Hematology History: Reports: Hx Diabetes, Hx Anemia Denies: Hx Anticoagulant Therapy, Other Endocrine/Hematological Disorders Cardiovascular History: Reports: Hx Angina, Hx Hypercholesterolemia, Hx Hypertension Denies: Hx Pacemaker/ICD, Other Cardiovascular Problems/Disorders Respiratory History: Reports: Hx Asthma, Hx Chronic Obstructive Pulmonary Disease (COPD), Hx Sleep Apnea, Other Respiratory Problems/Disorders - SLEEP APNEA GI History: Reports: Hx Gastroesophageal Reflux Disease Denies: Other GI Disorders History: Denies: Other Problems/Disorders Musculoskeletal History: Reports: Hx Arthritis, Hx Back Problems Comment Only: Other Musculoskeletal History - Neuropathy Sensory History: Reports: Hx Contacts or Glasses, Hx Vision Problem Denies: Hx Cataracts, Hx Eye Injury, Hx Eye Prosthesis, Hx Glaucoma, Hx Macular Degeneration, Hx Deafness, Hx Hearing Aid, Other Sensory Impairments Opthamlomology History: Reports: Hx Contacts or Glasses, Hx Vision Problem Denies: Hx Cataracts, Hx Eye Injury, Hx Eye Prosthesis, Hx Glaucoma, Hx Macular Degeneration, Other Sensory Impairments Neurological History: Reports: Hx Developmental Delay, Hx Headaches, Hx Migraine , Other Neuro Impairments/Disorders - diabetic neuropathy Denies: Hx Dementia Psychiatric History: Reports: Hx Anxiety, Hx Eating Disorder, Hx Depression, Hx Panic Disorder, Hx Post Traumatic Stress Disorder, Hx Inpatient Treatment, Hx Community Mental Health Tx, Hx Suicide Attempt, Hx of Violent Episodes Against Others, Hx Substance Abuse, Other Psychiatric Issues/Disorders - borderline personality disorder Denies: Hx Schizophrenia - Surgical History Surgery Procedure, Year, and Place: tubal ligation Hx Anesthesia Reactions: No Infectious Disease History: No Infectious Disease History: Denies: Hx Clostridium Difficile, Hx Hepatitis, Hx Human Immunodeficiency Virus (HIV), Hx Shingles, Hx Tuberculosis, Traveled Outside the [place] in Last 30 Days - Family History Known Family History: Positive: Hypertension, Diabetes, Other - Lung CA - Social History Alcohol Use: None Substance Use Type: Reports: None Smoking Status (MU): Never Smoked Tobacco Review of Systems Negative: Nausea Neurological: Other - dizziness Positive: Weakness All Other Systems Reviewed And Are Negative: Yes Physical Exam Triage Information Reviewed: Yes Vital Signs On Initial Exam: Initial Vitals Temp Pulse Resp BP Pulse Ox 97 F 76 16 99/68 95 12/15/16 10:11 12/15/16 10:11 12/15/16 10:11 12/15/16 10:11 12/15/16 10:11 Vital Signs Reviewed: Yes Appearance: Positive: Well-Appearing, No Pain Distress, Obese Skin: Positive: Warm, Skin Color Reflects Adequate Perfusion, Dry Head/Face: Positive: Normal Head/Face Inspection Eyes: Positive: Normal ENT: Positive: Normal ENT inspection Neck: Positive: Supple, Nontender Respiratory/Lung Sounds: Positive: Clear to Auscultation, Breath Sounds Present Cardiovascular: Positive: RRR Abdomen Description: Positive: Nontender, Soft Bowel Sounds: Positive: Present Musculoskeletal: Positive: Normal Neurological: Positive: Normal Psychiatric: Positive: Normal, Affect/Mood Appropriate Diagnostics - Vital Signs Vital Signs Temp Pulse Resp BP Pulse Ox 12/15/16 10:11 97 F 76 16 99/68 95 - Laboratory Lab Results: Lab Results 12/15/16 12/15/16 12/15/16 Range/Units 10:47 10:47 10:47 WBC 11.4 H (3.5-10.8) 10^3/ul RBC 5.10 (4.0-5.4) 10^6/ul Hgb 14.8 (12.0-16.0) g/dl Hct 44 (35-47) % MCV 87 (80-97) fL MCH 29 (27-31) pg MCHC 34 (31-36) g/dl RDW 15 (10.5-15) % Plt Count 280 (150-450) 10^3/ul MPV 8 (7.4-10.4) um3 Neut % (Auto) 64.8 (38-83) % Lymph % (Auto) 27.9 (25-47) % [place] % (Auto) 5.3 (1-9) % Eos % (Auto) 1.2 (0-6) % Baso % (Auto) 0.8 (0-2) % Absolute Neuts (auto) 7.4 (1.5-7.7) 10^3/ul Absolute Lymphs (auto) 3.2 (1.0-4.8) 10^3/ul Absolute Monos (auto) 0.6 (0-0.8) 10^3/ul Absolute Eos (auto) 0.1 (0-0.6) 10^3/ul Absolute Basos (auto) 0.1 (0-0.2) 10^3/ul Absolute Nucleated RBC 0.01 10^3/ul Nucleated RBC % 0 ESR 29 H (0-14) mm/Hr Sodium 134 (133-145) mmol/L Potassium TNP Chloride 98 L (101-111) mmol/L Carbon Dioxide 25 (22-32) mmol/L Anion Gap 11 (2-11) mmol/L BUN 25 H (6-24) mg/dL Creatinine 0.83 (0.51-0.95) mg/dL Est GFR ( Amer) 94.4 (>60) Est GFR (Non-Af Amer) 73.4 (>60) BUN/Creatinine Ratio 30.1 H (8-20) Glucose 255 H (70-100) mg/dL Lactic Acid 1.6 (0.5-2.0) mmol/L Calcium 9.4 (8.6-10.3) mg/dL Magnesium 1.7 L (1.9-2.7) mg/dL Total Bilirubin 0.60 (0.2-1.0) mg/dL AST TNP ALT 29 (7-52) U/L Alkaline Phosphatase 115 H (34-104) U/L Troponin I 0.01 (<0.04) ng/mL C-Reactive Protein 22.35 H (< 5.00) mg/L Total Protein 7.7 (6.4-8.9) g/dL Albumin 3.9 (3.2-5.2) g/dL Globulin 3.8 (2-4) g/dL Albumin/Globulin Ratio 1.0 (1-3) TSH 1.38 (0.34-5.60) mcIU/mL Beta HCG, Quant < 0.60 mIU/mL Urine Color Urine Appearance Urine pH (5-9) Ur Specific [place] (1.010-1.030) Urine Protein (Negative) Urine Ketones (Negative) Urine Blood (Negative) Urine Nitrate (Negative) Urine Bilirubin (Negative) Urine Urobilinogen (Negative) Ur Leukocyte Esterase (Negative) Urine WBC (Auto) (Absent) Urine RBC (Auto) (Absent) Ur Squamous Epith Cells (Absent) Urine Bacteria (Absent) Hyaline Casts (Absent) Urine Glucose (Negative) Salicylates < 2.50 (<30) mg/dL Urine Opiates Screen (None Detect) Acetaminophen < 15 mcg/mL Ur Barbiturates Screen (None Detect) Ur Phencyclidine Scrn (None Detect) Ur Amphetamines Screen (None Detect) U Benzodiazepines Scrn (None Detect) Urine Cocaine Screen (None Detect) U Cannabinoids Screen (None Detect) Serum Alcohol < 10 (<10) mg/dL 12/15/16 12/15/16 12/15/16 Range/Units 11:25 11:25 12:15 WBC (3.5-10.8) 10^3/ul RBC (4.0-5.4) 10^6/ul Hgb (12.0-16.0) g/dl Hct (35-47) % MCV (80-97) fL MCH (27-31) pg MCHC (31-36) g/dl RDW (10.5-15) % Plt Count (150-450) 10^3/ul MPV (7.4-10.4) um3 Neut % (Auto) (38-83) % Lymph % (Auto) (25-47) % Callaway % (Auto) (1-9) % Eos % (Auto) (0-6) % Baso % (Auto) (0-2) % Absolute Neuts (auto) (1.5-7.7) 10^3/ul Absolute Lymphs (auto) (1.0-4.8) 10^3/ul Absolute Monos (auto) (0-0.8) 10^3/ul Absolute Eos (auto) (0-0.6) 10^3/ul Absolute Basos (auto) (0-0.2) 10^3/ul Absolute Nucleated RBC 10^3/ul Nucleated RBC % ESR (0-14) mm/Hr Sodium (133-145) mmol/L Potassium 3.2 L Chloride (101-111) mmol/L Carbon Dioxide (22-32) mmol/L Anion Gap (2-11) mmol/L BUN (6-24) mg/dL Creatinine (0.51-0.95) mg/dL Est GFR ( Amer) (>60) Est GFR (Non-Af Amer) (>60) BUN/Creatinine Ratio (8-20) Glucose (70-100) mg/dL Lactic Acid (0.5-2.0) mmol/L Calcium (8.6-10.3) mg/dL Magnesium (1.9-2.7) mg/dL Total Bilirubin (0.2-1.0) mg/dL AST 22 ALT (7-52) U/L Alkaline Phosphatase (34-104) U/L Troponin I (<0.04) ng/mL C-Reactive Protein Cancelled (< 5.00) mg/L Total Protein (6.4-8.9) g/dL Albumin (3.2-5.2) g/dL Globulin (2-4) g/dL Albumin/Globulin Ratio (1-3) TSH (0.34-5.60) mcIU/mL Beta HCG, Quant mIU/mL Urine Color Yellow Urine Appearance Cloudy Urine pH 5.0 (5-9) Ur Specific [place] 1.010 (1.010-1.030) Urine Protein Negative (Negative) Urine Ketones Negative (Negative) Urine Blood Negative (Negative) Urine Nitrate Negative (Negative) Urine Bilirubin Negative (Negative) Urine Urobilinogen Negative (Negative) Ur Leukocyte Esterase Trace H (Negative) Urine WBC (Auto) Trace(0-5/hpf) (Absent) Urine RBC (Auto) Trace(0-2/hpf) (Absent) Ur Squamous Epith Cells Present H (Absent) Urine Bacteria Absent (Absent) Hyaline Casts Present H (Absent) Urine Glucose Negative (Negative) Salicylates (<30) mg/dL Urine Opiates Screen None detected (None Detect) Acetaminophen mcg/mL Ur Barbiturates Screen None detected (None Detect) Ur Phencyclidine Scrn None detected (None Detect) Ur Amphetamines Screen None detected (None Detect) U Benzodiazepines Scrn None detected (None Detect) Urine Cocaine Screen None detected (None Detect) U Cannabinoids Screen None detected (None Detect) Serum Alcohol (<10) mg/dL Result Diagrams: 12/15/16 10:47 12/15/16 12:15 Lab Statement: Any lab studies that have been ordered have been reviewed, and results considered in the medical decision making process. - CT Brain CT Interpretation Completed By: Radiologist - Reveals no evidence for gross acute infarct, mass effect, or hemorrhage. ED physician reviewed report and agrees. - EKG 1033 Cardiac Rate: NL - 78 EKG Rhythm: Sinus Rhythm EKG Interpretation: Non-specific lateral changes - Additional Comments Diagnostic Additional Comments: Brain MRI, per radiologist, reveals normal MRI of the brain. ED physician has reviewed report and agrees. Dizzy Course/Dx - Course Course Of Treatment: Ms. Mcnamara presented with a concern that she was dizzy after possible accidently taking too many of her psyche medications. She was a little ataxic and her labs were checked and she was observed. She did not improve much over the subsequent [address] brain was obtained. This was also negative. I spoke with Dr. Reardon who recommended MRI which was also read as negative. Dr. Reardon came and examined her and recommended admission. [15:00 ] Dr. Reardon (Neuro) recommends patient receives MRI. [17:29] Dr. Reardon ( Neuro) recommends patient be admitted. Dr. Henson (Hospitalist) will admit patient. - Diagnoses Provider Diagnoses: Ataxia - Provider Notifications Discussed Care Of Patient With: Nader Reardon - Neurologist Time Discussed With Above Provider: 15:00 Instructed by Provider To: Other - Recommends MRI. Discharge - Discharge Plan Condition: Stable Disposition: ADMITTED TO [facility] The documentation as recorded by the Jaylyn puckett Nilda accurately reflects the service I personally performed and the decisions made by me, Clifton Long MD.
[2016-12-15] MEDS: Heparin VIAL(*) 5000 UNITS/ML VIAL (FIVE THOUSAND) SUBCUT SCH (21:52)
--- NOTE | 2016-12-15 22:45 | HP ---
CC: Dr. Gomez * HISTORY AND PHYSICAL: DATE OF ADMISSION: 12/15/16 PRIMARY CARE PROVIDER: Dr. Gomez. ATTENDING PHYSICIAN WHILE IN THE HOSPITAL: Ariadne Luo MD * (report dictated by Eddi Esparza NP) CHIEF COMPLAINT: 1. Accidental overdose. 2. Dizziness. HISTORY OF PRESENT ILLNESS: Mrs. Mcnamara is a 46-year-old female patient, who carries a history of diabetes, hypertension, hyperlipidemia, neuropathy and also carries a history of IGLESIA. She comes in today. Her family members are with her and they noted that the patient was at [facility] today and the patient had arrived and the mental health veneer glue jointer feedback was concerned as the patient has an unsteady gait. She was a little bit more off and confused. The family member noted that Jennifer is appeared to be not herself and did not really elaborate. They did notice that she was off balance. There was no slurring of the speech. No facial drooping and no weakness to one side. Apparently what had happened is Jennifer actually took last night's medications and yesterday morning's medications appropriately, but this morning she took a.m. medications in addition to taking another dose of her night time medications. The patient since then has been again noted to be drowsy per the family, she has been off balanced and has been having difficulty with her gait and has been more dizzy. The patient denied this, said that she was not trying to harm herself. She did this by a mistake. She does state that she is under a lot of stress at home. Her mother does put a lot of stress on her and she says that at times it feels like she is cannot do right by her mom and also feels that if she cannot get home to take care of her mother that her mother's health will decline and she is worried that her mother is ageing and may need retirement placement at some point, which she does not want to do, which is causing her a significant amount of stress. She denies having any fevers or chills. No vomiting. No diarrhea. She denied having any abdominal pain. There has been no shortness of breath. There was again no reports of garbled speech, just slowed speech and confusion at times. She came into the ED, was evaluated. It was noted that her gait was still off despite several hours of observation. Neurology was consulted and it was felt that she should be observed and who we are asked to evaluate for admission. PAST MEDICAL HISTORY: Significant for: 1. Diabetes. 2. Hypertension. 3. Hyperlipidemia. 4. Neuropathy. 5. IGLESIA. PAST SURGICAL HISTORY: Denied. MEDICATIONS: Home meds according to the list that we were able to obtain include: 1. Trazodone 100 mg at bedtime. 2. Topamax 100 mg in the morning. 3. Lyrica 150 mg p.o. t.i.d. 4. Asmanex 2 puffs inhaled daily. 5. Lopressor 25 mg p.o. b.i.d. 6. Mobic 7.5 mg p.o. b.i.d. 7. Lisinopril/hydrochlorothiazide 1 tablet p.o. b.i.d. 8. Lidocaine jelly 1 application topically b.i.d. 9. Insulin 70/30, 100 units subcu b.i.d. a.c. 10. Lasix 40 mg p.o. b.i.d. 11. Flonase 2 sprays both nares daily. 12. Trulicity 1.5 mg subcu every 7 days. 13. Pristiq 100 mg daily. 14. Lipitor 40 mg daily. 15. Albuterol 1.25 mg every 4 hours as needed. 16. Abilify 10 mg p.o. daily. ALLERGIES TO MEDICATIONS: Include METFORMIN. FAMILY HISTORY: Mother had a history of diabetes. Father had a history of [place], diabetes, and cancer. SOCIAL HISTORY: She does not smoke. She does not drink alcohol. She denies recreational drug abuse. Surrogate decision maker is her mother. REVIEW OF SYSTEMS: There is no documented fever. She denied any significant weight change. There was no double vision. She denies having any ear discharge. There is no rhinorrhea, no sore throat, no thyroid enlargement. Denied having any chest pain. There is no orthopnea, no nocturnal dyspnea. here was no abdominal pain. No nausea, no vomiting. No dysuria, no frequency. There was no seizure. No loss of consciousness. No pruritus and no skin ulcerations. Review of 14 systems completed, all others negative. PHYSICAL EXAMINATION GENERAL: At this time, Mrs. Mcnamara is a 46-year-old female patient. She is sitting on the ER stretcher. She does not appear to be in any acute distress. She is well nourished and well developed. VITAL SIGNS: Reveals blood pressure 102/59, pulse 89, respirations 18, O2 sat 96%, temperature 97. HEENT: Head: Atraumatic, normocephalic. Eyes: EOMs intact. Sclerae anicteric and not pale. Throat: Oral mucosa appears to be moist. No oropharyngeal erythema. NECK: Supple. LUNGS: Clear to auscultation bilaterally. No wheezes, rales, or rhonchi. HEART: Sounds S1, S2. Regular rate and rhythm. No murmurs, rubs, or gallops. ABDOMEN: Soft, flat, nontender. Bowel sounds present. EXTREMITIES: Pulses 2+ throughout. She is able to move all 4 extremities with 5/5 strength. NEUROLOGIC: She is awake. She is alert. She is drowsy. She is oriented to place and self. She is confused in time. [employer] were equal. Tongue is midline. She does have tremor noted and she has no gross obvious focal deficits. SKIN: Intact. DIAGNOSTIC STUDIES/LAB DATA: Revealed WBC of 11.4, RBC of 5.10, hemoglobin of 14.8, hematocrit of 44, platelet count of 280. Sodium was 134, potassium was 3.2, chloride 98, bicarb 25, BUN 25, creatinine 0.83, glucose 255, lactic 1.6, calcium 9.4, mag 1.7. Total bili 0.6, AST 22, ALT 29, alk phos 115. Troponin 0. CRP pending. Albumin was 3.9. Beta hCG was negative. TSH was normal. Urine was obtained, which showed trace leukocyte esterase. Urine tox was negative. She did have imaging here in the ED. She did have a brain MRI, which revealed normal MRI of the brain. There was a brain CT today, which showed no evidence for growth, acute infarct, mass effect, or hemorrhage. EKG obtained today showed normal sinus rhythm, rate of 78. No ST elevations or T-wave inversions were noted. Old medical records were reviewed. ASSESSMENT AND PLAN: Mrs. Mcnamara is a 46-year-old female patient coming into the ER today with complaints of altered mental status and unintentional drug overdose. She will be admitted under observation status for: 1. Unintentional drug overdose. At this point, we will go ahead and observe her on telemetry, monitor her. It is unknown what she actually took, but some of her medications certainly could be causing these symptoms. She took too may of them, so we will monitor them. I am holding tonight's meds and we will restart tomorrow and continue to follow closely. 2. Dizziness with ataxia. Neurology has been consulted and also been consulted for the altered mental status. Again MRI was negative. I will get frequent neuro checks on her while she is here. We will place her on telemetry and we will follow. 3. Diabetes. Lispro sliding scale. 4. Hypertension. We will continue her meds. We will hold tonight's meds and restart tomorrow. 5. Hyperlipidemia. Continue statin therapy. 6. Neuropathy. Continue meds as prescribed. 7. Obstructive sleep apnea. I did order CPAP. 8. DVT prophylaxis. She will be placed on heparin subcu. 9. Code status: Full code. 10. Fluids, electrolytes, and nutrition. She can have a consistent carb diet. TIME SPENT: Time spent on the admission 60 minutes, greater than half of the time was spent [id number] with the patient obtaining my history and physical, other half time was spent going over the plan of care with the patient and implementing the plan of care. I did discuss the plan of care with my attending, Dr. Luo; she is in agreement. EDDI ESPARZA NP [id number]/CPS #: [id number] KI
[2016-12-16] MEDS: Heparin VIAL(*) 5000 UNITS/ML VIAL (FIVE THOUSAND) SUBCUT SCH (05:27)
[2016-12-16 05:53] LABS: Hematocrit 43 % (35-47); Hemoglobin 14.5 g/dl (12.0-16.0); Mean Corpuscular HGB Conc 33 g/dl (31-36); Mean Corpuscular Hemoglobin 29 pg (27-31); Mean Corpuscular Volume 86 fL (80-97); Mean Platelet Volume 9 um3 (7.4-10.4); Red Blood Count 5.05 10^6/ul (4.0-5.4); Red Cell Distribution Width 15 % (10.5-15); White Blood Count 11.9 10^3/ul (3.5-10.8)
[2016-12-16 06:08] LABS: BUN/Creatinine Ratio 26.7 (8-20); Calcium 8.6 mg/dL (8.6-10.3); EGFR African American 137.2 (>60); EGFR Non-African American 106.7 (>60); Potassium 3.4 mmol/L (3.5-5.0)
[2016-12-16] MEDS ORDERED: Potassium Chlor TAB* 20 MEQ TAB.ER PO ONE (07:30)
[2016-12-16] MEDS ORDERED: Insulin LISPRO* 1 UNITS UNIT SUBCUT SCH (07:30)
[2016-12-16 08:21] VITALS: BP 111/69
[2016-12-16] MEDS ORDERED: Metoprolol Tartrate TAB* 25 MG PO SCH (09:00)
[2016-12-16] MEDS ORDERED: Atorvastatin* 40 MG TAB PO SCH (09:00)
[2016-12-16] MEDS ORDERED: Mometasone 220 MCG MDI INH SCH (09:00)
[2016-12-16] MEDS ORDERED: Desvenlafaxine (NF) 50 MG TAB PO SCH (09:00)
[2016-12-16] MEDS ORDERED: ARIPiprazole TAB* 5 MG PO SCH (09:00)
[2016-12-16] MEDS ORDERED: Topiramate TAB(*) 100 MG PO SCH (09:00)
--- NOTE | 2016-12-16 15:41 | CONS ---
CONSULTATION REPORT: DATE OF CONSULT: 12/15/16 DATE OF DICTATION: 12/16/16 PATIENT OF: Dr. Gomez. HISTORY OF PRESENT ILLNESS: This is a 46-year-old woman asked to see for confusion and difficulty walking. She was brought in by her cousin yesterday morning. She apparently was in her usual state of health the night before; however, she was confused with difficulty walking and noted by family and also mental health on the day of admission. She was observed in the ER for 7 or 8 hours without significant improvement in her condition and therefore she was deemed unsafe to be discharged and was admitted for further observation, workup as needed. Her medication; she had not taken her medications the day before and took several of them as a double dose that morning. She has been under ongoing stress at home and this seems chronic. She was with her elderly mom who is frail and would not be able to watch Jennifer well if she was sent home the night of admission. The accidental overdose was by mistake. PAST MEDICAL HISTORY: Significant for diabetes, hypertension, hyperlipidemia, neuropathy, IGLESIA. She has significant stress and anxiety also that she is being treated for. MEDICATIONS: On admission include: 1. Trazodone 100 mg at bedtime. 2. Topamax 100 mg in the morning. 3. Lyrica 150 t.i.d. 4. Abilify 10 mg daily. 5. Pristiq 100 mg daily. 6. Asmanex 2 puffs inhaled daily. 7. Lopressor 25 mg b.i.d. 8. Mobic 7.5 b.i.d. 9. Lisinopril hydrochlorothiazide 1 tab b.i.d. 10. Insulin 70/30, a 100 b.i.d. 11. Lasix 40 mg b.i.d. 12. Flonase 2 sprays both nares daily. 13. Trulicity 1.5 mg subcu every 7 days. 14. Lipitor 40 mg daily. 15. Albuterol 1.25 mg every 8 hours as needed. ALLERGIES TO MEDICATIONS: Include METFORMIN. FAMILY HISTORY: There is a family history for diabetes and father had diabetes , [place], and cancer. SOCIAL HISTORY: She does not smoke or drink alcohol. Denies recreational drug. REVIEW OF SYSTEMS: In negative in all 14 spheres other than the HPI. She has had no headache or visual symptoms. PHYSICAL EXAM: On exam she was afebrile. Pulse 85, respirations 16, blood pressure 102/59. She was alert, she did not know where she lived. She gave an address, but it was wrong according to the cousin. She knew her name. She knew she was in the hospital. She spoke in short sentences and could follow 1 step and occasionally 2 step commands. This apparently was unchanged when I saw her at 5:30 p.m. yesterday. This was unchanged compared to her symptoms earlier that morning. Motor exam revealed normal tone and strength. Finger-to- nose showed mild bilateral dysmetria. Her walking was unsteady and needed minimal assistance to steady herself up, but how she was walking there was a concern for a fall. This walking was apparently better than previous. Sensation intact to light touch. Reflexes were 1 and equal. Neck was supple. Chest: Clear. Cardiovascular: Regular, rate, and rhythm. Abdomen: Soft with positive bowel sounds. There was no bruising or edema. DIAGNOSTIC STUDIES/LAB DATA: White count of 11.9, hemoglobin 33, normal CBC, sed rate was 29. CMP was normal, but her C-reactive protein was 22. Beta hCG was negative. TSH was normal. BUN was 25. Magnesium was 1.7. Her glucose was 215. UA showed hyaline casts, trace leuk esterase, negative white count, negative toxicology. Her CT and MRI scan were reviewed and showed no acute findings and is normal. PLAN/RECOMMENDATIONS: I recommended admission yesterday because she was unsafe to go home to limited care. I felt that this most likely was secondary to her taking too much of her multiple medications, but we would need to do further workup if her situation clinically deteriorated. My sense from talking to nurse and ER physician is that her encephalopathy over the course of the day had not improved. Her walking is still unsteady and she was still a fall risk, but it was improved from previously. [id number]/[facility] #: [id number] [facility]IN[facility] INSANEMichael
--- NOTE | 2016-12-17 02:43 | DS ---
CC: Dr. Gomez * DISCHARGE SUMMARY: DATE OF ADMISSION: 12/15/16 DATE OF DISCHARGE: 12/16/16 PRIMARY CARE PROVIDER: Dr. Gomez. CONSULTING NEUROLOGIST: Dr. Reardon. DISCHARGING PROVIDER: ARIA Cheney SUPERVISING PHYSICIAN: Michael Guajardo MD * (DICTATED BY ARIA CHENEY) PRIMARY DISCHARGE DIAGNOSES: 1. Accidental overdose. 2. Dizziness and weakness secondary to above SECONDARY DISCHARGE DIAGNOSES: 1. Insulin dependent diabetes. 2. Hyperlipidemia. 3. Diabetic neuropathy. 4. Obstructive sleep apnea. DISCHARGE MEDICATIONS: 1. Abilify 10 mg p.o. daily. 2. Albuterol nebulized q.4 hours as needed for shortness of breath. 3. Atorvastatin 40 mg p.o. daily. 4. Pristiq 100 mg p.o. daily. 5. Trulicity 1.5 mg subcu weekly. 6. Fluticasone nasal spray 1 spray in both nostrils daily. 7. Lasix 40 mg p.o. twice daily. 8. NovoLog 70/30 mix, unsure of exact home dosing. 9. Lidocaine jelly applied topically twice daily. 10. Lisinopril/hydrochlorothiazide 20/25, 1 tablet p.o. twice daily. 11. Meloxicam 7.5 mg p.o. twice daily. 12. Metoprolol tartrate 25 mg p.o. twice daily. 13. Mometasone 2 puffs inhaled daily. 14. Lyrica 150 mg p.o. 3 times daily. 15. Topamax 100 mg p.o. daily. 16. Trazodone 100 mg p.o. at bedtime. Medication changes: None. HOSPITAL IMAGIN. CT of the brain shows no evidence for acute infarct, mass effect or hemorrhage. 2. Brain MRI shows no acute process. 3. EKG shows sinus rhythm without acute ischemic changes. HOSPITAL COURSE: This is a 46-year-old female with history of insulin dependent diabetes, hypertension, hyperlipidemia, diabetic neuropathy and obstructive sleep apnea as well as unspecified psychiatric disorder who presented to the emergency department with complaints of dizziness following an accidental overdose. The patient apparently accidentally took both her morning and evening medications in one sitting and then felt somewhat dizzy and weak. She was observed for several hours in the emergency department without improvement in her condition. Initial labs demonstrated a mild leukocytosis, mild hypokalemia and hypomagnesemia. Remainder of labs were otherwise unremarkable. Toxicology screen negative. Initial CT of the brain showed no acute process. Due to her complaints of dizziness Dr. Reardon, neurologist was consulted who recommended a period of additional observation if her symptoms were not improving in the emergency department. He also recommended an MRI of the brain, which was completed and showed no chronic or acute pathology. The patient was monitored with continuous telemetry overnight without any dysrhythmias. The following morning the patient reported feeling significantly better. No complaints of dizziness or weakness with ambulation. The patient's daughter raised some concerns about the patient's current living situation and she acts as primary geneticist to her mother. Social work was asked to please evaluate, who after discussion felt that the patient's mother is likely more functional than the patient and did not require a significant amount of assistance. The patient did accept some home services as well, but there did not seem to be anything unsafe about her discharge plan. DISPOSITION/FOLLOW-UP PLAN: The patient is being discharged to home without any changes to her home medications. Discussed some strategies to avoid accidental overdose in the future. She will be established with [facility]. Recommend followup with her primary care provider. ARIA CHENEY [id number]/[facility] #: [id number] MTDD
[2016-12-17 22:33] LABS: B. miyamotoi PCR, B Negative (Negative); Babesia divergens/MO-1 Negative (Negative); Babesia ducani Negative (Negative); Ehrlichia ewingii/canis Negative (Negative)
[2016-12-18 16:17] LABS: Lyme Disease IgG Ab WB Negative (Negative)
== END 2016-12-16 11:46 | disposition home or self-care (01) ==
LOC: ED 10:03 → MEDTELE 18:02
PROVIDERS: ADMIT Internal Medicine; ATTEND Hospitalist
DX: T50.991A Poisoning by other drugs, medicaments and biological substances, accidental (unintentional), initial encounter (principal); R42 Dizziness and giddiness; R27.0 Ataxia, unspecified; E11.9 Type 2 diabetes mellitus without complications; Z79.4 Long term (current) use of insulin; I10 Essential (primary) hypertension; E78.5 Hyperlipidemia, unspecified; G62.9 Polyneuropathy, unspecified; G47.33 Obstructive sleep apnea (adult) (pediatric); R53.1 Weakness; R41.0 Disorientation, unspecified; R26.2 Difficulty in walking, not elsewhere classified; R41.82 Altered mental status, unspecified; Z79.899 Other long term (current) drug therapy
CPT/HCPCS: 36415; 70450; 70551; 80048; 80053; 80307; 80320; 80329; 81003; 81015; 83605; 83735; 84443; 84484; 84702; 85025; 85652; 86140; 86617; 86618; 87086; 87798; 93005; 94640; 94760; 96361; 96365; 96372; 99284; A9270-GY; G0378; G0480; J1644; J3475

== ENCOUNTER 2017-01-26 15:45 | Emergency (ER) | payer MEDICARE, MEDICAID ==
[2017-01-26] MEDS ORDERED: methylPREDNISolone 125 MG* 2 ML VIAL IV ONE (20:06)
[2017-01-26] MEDS ORDERED: Albuterol/Ipratropium NEB.SOL* Albuterol 2.5 MG/Ipratropium 0.5 MG 3 ML INH ONE (20:06)
[2017-01-26] MEDS ORDERED: Aspirin Low Dose CHEW TAB* 81 MG PO ONE (20:06)
[2017-01-26] MEDS ORDERED: NS 0.9% 1000 ML* 1,000 ML IV ONE (20:26)
[2017-01-26 20:28] LABS: Hematocrit 38 % (35-47); Hemoglobin 12.8 g/dl (12.0-16.0); Mean Corpuscular HGB Conc 34 g/dl (31-36); Mean Corpuscular Hemoglobin 30 pg (27-31); Mean Corpuscular Volume 87 fL (80-97); Mean Platelet Volume 8 um3 (7.4-10.4); Red Blood Count 4.33 10^6/ul (4.0-5.4); Red Cell Distribution Width 17 % (10.5-15); White Blood Count 12.8 10^3/ul (3.5-10.8)
[2017-01-26 20:43] LABS: Albumin 4.2 g/dL (3.2-5.2); BUN/Creatinine Ratio 21.2 (8-20); Calcium 9.5 mg/dL (8.6-10.3); EGFR African American 122.9 (>60); EGFR Non-African American 95.6 (>60); Globulin 3.3 g/dL (2-4); Potassium 3.4 mmol/L (3.5-5.0); Total Bilirubin 0.6 mg/dL (0.2-1.0); Total Protein 7.5 g/dL (6.4-8.9)
[2017-01-26 20:45] LABS: Troponin I 0.01 ng/mL (<0.04)
--- NOTE | 2017-01-26 21:28 | RAD ---
INDICATION: Shortness of breath. History of asthma. Post multiple nebulizer treatments at home without improvement. COMPARISON: September 08, 2016 TECHNIQUE: Dual energy PA and routine lateral views of the chest were obtained. REPORT: Mild prominence of interstitial markings most prominent at the lower lung zones similar to the prior exam. No alveolar consolidation, focal pulmonary lesion, pleural effusion, pneumothorax. The heart, pulmonary vasculature, and mediastinal contours are unremarkable. IMPRESSION: Stigmata of probable chronic obstructive lung disease. No acute pulmonary or cardiac process evident.
--- NOTE | 2017-01-26 22:01 | ED ---
Jaylyn Sequeira Nilda, scribed for Shaji Appiah MD on 01/26/17 at 2009 . Shortness of Breath - HPI Summary HPI Summary: This patient is a 46 year old F presenting to [facility] accompanied by daughter with a chief complaint of constant SOB since this morning. The patient rates the pain 0/10 in severity. Symptoms aggravated and alleviated by nothing including neb treatment administered PVC MONITOR. Patient reports chest tightness, cough , rhinorrhea (5 days), and chronic LE pain. She states her symptoms are worse than usual from normal asthma symptoms. PMHx asthma. - History of Current Complaint Chief Complaint: EDShortnessOfBreath Time Seen by Provider: 01/26/17 20:00 Hx Obtained From: Patient Onset/Duration: Sudden Onset, Lasting Hours, Still Present Timing: Constant Aggrevating Factors: Nothing Alleviating Factors: Nothing Associated Signs & Symptoms: Cough (Nonproductive) - Allergy/Home Medications Allergies/Adverse Reactions: Allergies Allergy/AdvReac Type Severity Reaction Status Date / Time Metformin Allergy Unknown Unknown Verified 04/09/15 17:43 Reaction Details PMH/Surg Hx/FS Hx/Imm Hx Endocrine/Hematology History: Reports: Hx Diabetes, Hx Anemia Denies: Hx Anticoagulant Therapy, Other Endocrine/Hematological Disorders Cardiovascular History: Reports: Hx Angina, Hx Hypercholesterolemia, Hx Hypertension Denies: Hx Pacemaker/ICD, Other Cardiovascular Problems/Disorders Respiratory History: Reports: Hx Asthma, Hx Chronic Obstructive Pulmonary Disease (COPD), Hx Sleep Apnea, Other Respiratory Problems/Disorders - SLEEP APNEA GI History: Reports: Hx Gastroesophageal Reflux Disease Denies: Other GI Disorders History: Denies: Other Problems/Disorders Musculoskeletal History: Reports: Hx Arthritis, Hx Back Problems Comment Only: Other Musculoskeletal History - Neuropathy Sensory History: Reports: Hx Contacts or Glasses, Hx Vision Problem Denies: Hx Cataracts, Hx Eye Injury, Hx Eye Prosthesis, Hx Glaucoma, Hx Macular Degeneration, Hx Deafness, Hx Hearing Aid, Other Sensory Impairments Opthamlomology History: Reports: Hx Contacts or Glasses, Hx Vision Problem Denies: Hx Cataracts, Hx Eye Injury, Hx Eye Prosthesis, Hx Glaucoma, Hx Macular Degeneration, Other Sensory Impairments Neurological History: Reports: Hx Developmental Delay, Hx Headaches, Hx Migraine , Other Neuro Impairments/Disorders - diabetic neuropathy Denies: Hx Dementia Psychiatric History: Reports: Hx Anxiety, Hx Eating Disorder, Hx Depression, Hx Panic Disorder, Hx Post Traumatic Stress Disorder, Hx Inpatient Treatment, Hx Community Mental Health Tx, Hx Suicide Attempt, Hx of Violent Episodes Against Others, Hx Substance Abuse, Other Psychiatric Issues/Disorders - borderline personality disorder Denies: Hx Schizophrenia - Surgical History Surgery Procedure, Year, and Place: tubal ligation Hx Anesthesia Reactions: No Infectious Disease History: No Infectious Disease History: Denies: Hx Clostridium Difficile, Hx Hepatitis, Hx Human Immunodeficiency Virus (HIV), Hx Shingles, Hx Tuberculosis, Traveled Outside the [place] in Last 30 Days - Family History Known Family History: Positive: Hypertension, Diabetes, Other - Lung CA - Social History Occupation: Unemployed, Disabled Lives: With Family Alcohol Use: None Substance Use Type: Reports: None Smoking Status (MU): Never Smoked Tobacco Review of Systems Positive: Nasal Discharge Positive: Shortness Of Breath, Cough, Other - chest tightness Positive: Other - chronic LE pain All Other Systems Reviewed And Are Negative: Yes Physical Exam Triage Information Reviewed: Yes Vital Signs On Initial Exam: Initial Vitals Temp Pulse Resp BP Pulse Ox 98.3 F 116 20 128/82 97 01/26/17 16:08 01/26/17 16:08 01/26/17 16:08 01/26/17 16:08 01/26/17 16:08 Vital Signs Reviewed: Yes Appearance: Positive: Well-Appearing, No Pain Distress Skin: Positive: Warm, Skin Color Reflects Adequate Perfusion Head/Face: Positive: Normal Head/Face Inspection Eyes: Positive: EOMI, ANABEL Neck: Positive: Nontender Respiratory/Lung Sounds: Positive: Decreased Breath Sounds - bilateral Cardiovascular: Positive: RRR. Negative: Murmur Abdomen Description: Positive: Nontender Musculoskeletal: Positive: Strength/ROM Intact, Edema Left, Edema Right Neurological: Positive: Sensory/Motor Intact, Alert, Oriented to Person Place, Time, CN Intact II-III Psychiatric: Positive: Normal - [place] Coma Scale Best Eye Response: 4 - Spontaneous Best Motor Response: 6 - Obeys Commands Best Verbal Response: 5 - Oriented Diagnostics - Vital Signs Vital Signs Temp Pulse Resp BP Pulse Ox 01/26/17 18:14 97.6 F 117 20 125/88 100 01/26/17 16:08 98.3 F 116 20 128/82 97 - Laboratory Result Diagrams: 01/26/17 20:18 01/26/17 20:18 Lab Statement: Any lab studies that have been ordered have been reviewed, and results considered in the medical decision making process. - Radiology CXR Radiology Interpretation Completed By: Radiologist - CXR reveals stigmata of probable chronic obstructive lung disease. No acute pulmonary or cardiac process evident. ED physician has reviewed this radiology report and agrees. - EKG 2028 Cardiac Rate: Tachycardia EKG Rhythm: Sinus Tachycardia - 105 bpm EKG Interpretation: No STEMI, nml AR, QRS, QT Course/Dx - Course Course Of Treatment: This patient is a 46 year old F presenting to [facility] accompanied by daughter with a chief complaint of SOB since this morning. The patient rates the pain 0/10 in severity. Symptoms aggravated and alleviated by nothing including neb treatment administered PVC MONITOR. Patient reports chest tightness, cough, rhinorrhea (5 days), and chronic LE pain. She states her symptoms are worse than usual from normal asthma symptoms. PMHx asthma. An EKG reveals sinus tachy, 105 bpm, No STEMI, nml AR, QRS, QT. CXR reveals stigmata of probable chronic obstructive lung disease. No acute pulmonary or cardiac process evident. ED physician has reviewed this radiology report and agrees. The patient feels significantly better after duoneb and iv steroids. DC tohome in good condition. - Diagnoses Provider Diagnoses: Asthma exacerbation Discharge - Discharge Plan Condition: Good Disposition: HOME Prescriptions: predniSONE TAB* [Deltasone TAB*] 40 mg PO DAILY #8 tab Patient Education Materials: Asthma (ED) Referrals: Alberto Gomez MD [Primary Care Provider] - The documentation as recorded by the Jaylyn puckett Nilda accurately reflects the service I personally performed and the decisions made by me, Shaji Appiah MD.
[2017-01-26 22:09] VITALS: BP 134/74
== END 2017-01-26 22:10 | disposition home or self-care (01) ==
LOC: ED 15:45
DX: J45.901 Unspecified asthma with (acute) exacerbation (principal); E11.9 Type 2 diabetes mellitus without complications; I25.119 Atherosclerotic heart disease of native coronary artery with unspecified angina pectoris; I10 Essential (primary) hypertension; E78.00 Pure hypercholesterolemia, unspecified; K21.9 Gastro-esophageal reflux disease without esophagitis; R00.0 Tachycardia, unspecified
CPT/HCPCS: 36415; 71020; 80053; 83605; 83880; 84484; 85025; 85379; 85610; 87502; 93005; 94640; 96361; 96374; 99282; A9270-GY; J2930

== ENCOUNTER 2017-04-29 19:17 | Inpatient (IN) | payer MEDICARE, MEDICAID ==
--- NOTE | 2017-04-29 19:51 | ED ---
Psychiatric Complaint - HPI Summary HPI Summary: 46-year-old female presents with suicidal thoughts again. She states that every time her brother comes over the ensuing argument cause her to doubt herself. She states last week when he came over she overdosed on her medications. She said she slept it off. She states she has not overdosed today. She has a history of self-harm. She states all of her recent stresses related to her brother. She denies any drug or ETOH use recently. - History Of Current Complaint Chief Complaint: EDMentalHealth Time Seen by Provider: 04/29/17 19:27 - Allergies/Home Medications Allergies/Adverse Reactions: Allergies Allergy/AdvReac Type Severity Reaction Status Date / Time metformin Allergy Unknown Verified 04/29/17 22:34 Reaction Details PMH/Surg Hx/FS Hx/Imm Hx Endocrine/Hematology History: Reports: Hx Diabetes, Hx Anemia Denies: Hx Anticoagulant Therapy, Other Endocrine/Hematological Disorders Cardiovascular History: Reports: Hx Angina, Hx Hypercholesterolemia, Hx Hypertension Denies: Hx Pacemaker/ICD, Other Cardiovascular Problems/Disorders Respiratory History: Reports: Hx Asthma, Hx Chronic Obstructive Pulmonary Disease (COPD), Hx Sleep Apnea, Other Respiratory Problems/Disorders - SLEEP APNEA GI History: Reports: Hx Gastroesophageal Reflux Disease Denies: Other GI Disorders History: Denies: Other Problems/Disorders Musculoskeletal History: Reports: Hx Arthritis, Hx Back Problems Comment Only: Other Musculoskeletal History - Neuropathy Sensory History: Reports: Hx Contacts or Glasses, Hx Vision Problem Denies: Hx Cataracts, Hx Eye Injury, Hx Eye Prosthesis, Hx Glaucoma, Hx Macular Degeneration, Hx Deafness, Hx Hearing Aid, Other Sensory Impairments Opthamlomology History: Reports: Hx Contacts or Glasses, Hx Vision Problem Denies: Hx Cataracts, Hx Eye Injury, Hx Eye Prosthesis, Hx Glaucoma, Hx Macular Degeneration, Other Sensory Impairments Neurological History: Reports: Hx Developmental Delay, Hx Headaches, Hx Migraine , Other Neuro Impairments/Disorders - diabetic neuropathy Denies: Hx Dementia Psychiatric History: Reports: Hx Anxiety, Hx Eating Disorder, Hx Depression, Hx Panic Disorder, Hx Post Traumatic Stress Disorder, Hx Inpatient Treatment, Hx Community Mental Health Tx, Hx Suicide Attempt, Hx of Violent Episodes Against Others, Hx Substance Abuse, Other Psychiatric Issues/Disorders - borderline personality disorder Denies: Hx Schizophrenia - Surgical History Surgery Procedure, Year, and Place: tubal ligation Hx Anesthesia Reactions: No Infectious Disease History: No Infectious Disease History: Denies: Hx Clostridium Difficile, Hx Hepatitis, Hx Human Immunodeficiency Virus (HIV), Hx Shingles, Hx Tuberculosis, Traveled Outside the [place] in Last 30 Days - Family History Known Family History: Positive: Hypertension, Diabetes, Other - Lung CA - Social History Alcohol Use: None Substance Use Type: Reports: None Smoking Status (MU): Never Smoked Tobacco Review of Systems Negative: Fever Negative: Chest Pain Negative: Shortness Of Breath Positive: Depressed All Other Systems Reviewed And Are Negative: Yes Physical Exam Triage Information Reviewed: Yes Vital Signs On Initial Exam: Initial Vitals Temp Pulse Resp BP Pulse Ox 97.1 F 114 18 166/104 94 04/29/17 19:20 04/29/17 19:20 04/29/17 19:20 04/29/17 19:20 04/29/17 19:20 Vital Signs Reviewed: Yes Appearance: Positive: Well-Appearing Skin: Positive: Warm, Dry Head/Face: Positive: Normal Head/Face Inspection Eyes: Positive: Normal, EOMI, ANABEL, Conjunctiva Clear Respiratory/Lung Sounds: Positive: Clear to Auscultation, Breath Sounds Present Cardiovascular: Positive: Normal, RRR Abdomen Description: Positive: Nontender, Soft Bowel Sounds: Positive: Present Musculoskeletal: Positive: Normal Neurological: Positive: Normal Psychiatric: Positive: Normal Diagnostics - Vital Signs Vital Signs Temp Pulse Resp BP Pulse Ox 04/29/17 19:20 97.1 F 114 18 166/104 94 - Laboratory Result Diagrams: 04/29/17 19:50 04/29/17 19:50 Lab Statement: Any lab studies that have been ordered have been reviewed, and results considered in the medical decision making process. Course/Dx - Course Course Of Treatment: 46-year-old female presents with suicidal thoughts again. She states that every time her brother comes over the ensuing argument cause her to doubt herself. She states last week when he came over she overdosed on her medications. She said she slept it off. She states she has not overdosed today. She has a history of self-harm. She states all of her recent stresses related to her brother. She denies any drug or ETOH use recently. normal PE. medically clear for [facility]. will be admitted to mental health - Differential Dx/Clinical Impression Differential Diagnosis/HQI/PQRI: Positive: Anxiety, Depression, Suicidal Ideation Provider Diagnosis: Depression Discharge - Discharge Plan Condition: Stable [place] [place]errals: Alberto Gomez MD [Primary Care Provider] -
[2017-04-29 20:01] LABS: ABS Basophils 0.1 10^3/ul (0-0.2); ABS Eosinophils 0.1 10^3/ul (0-0.6); ABS Lymphocytes 2.6 10^3/ul (1.0-4.8); ABS Monocytes 0.7 10^3/ul (0-0.8); ABS Neutrophils 8.3 10^3/ul (1.5-7.7); ABS Nucleated RBC 0 10^3/ul; Hematocrit 39 % (35-47); Hemoglobin 13.2 g/dl (12.0-16.0); Lymphocyte % 21.9 % (25-47); Mean Corpuscular HGB Conc 34 g/dl (31-36); Mean Corpuscular Hemoglobin 30 pg (27-31); Mean Corpuscular Volume 87 fL (80-97); Mean Platelet Volume 8 um3 (7.4-10.4); Nucleated Red Blood Cells % 0; Platelet Count 294 10^3/ul (150-450); Red Blood Count 4.44 10^6/ul (4.0-5.4); Red Cell Distribution Width 14 % (10.5-15); White Blood Count 11.7 10^3/ul (3.5-10.8)
[2017-04-29 20:19] LABS: EGFR Non-African American 115.5 (>60)
[2017-04-29 20:24] LABS: Urine Appearance Cloudy; Urine Blood Negative (Negative); Urine Color Yellow; Urine Ketones Negative (Negative); Urine Protein Negative (Negative); Urine Specific Gravity 1.023 (1.010-1.030); Urine Urobilinogen Negative (Negative)
[2017-04-30] MEDS ORDERED: Al Hydrox/Mg Hydrox/Simet LIQ* 30 ML UDC PO PRN (01:14)
[2017-04-30] MEDS ORDERED: Albuterol 2.5 MG/3 ML NEB.SOL* (0.083%) INH PRN (01:33)
[2017-04-30] MEDS ORDERED: MELOXICAM 15 MG PO SCH (02:00)
[2017-04-30] MEDS ORDERED: Pregabalin CAP(*) 100 MG ONE (02:08)
[2017-04-30] MEDS ORDERED: Pregabalin CAP(*) 50 MG ONE (02:08)
[2017-04-30] MEDS ORDERED: ARIPiprazole TAB* 5 MG ONE (02:08)
[2017-04-30] MEDS: Lisinopril TAB* 10 MG PO SCH ×2 (02:10→12:07)
[2017-04-30] MEDS: CMCS: Desvenlafaxine (NF) 50 MG TAB PO SCH ×2 (02:10→21:07)
[2017-04-30] MEDS ORDERED: Furosemide TAB* 40 MG PO SCH (08:00)
[2017-04-30] MEDS ORDERED: Hydrochlorothiazide TAB* 25 MG PO SCH (08:00)
[2017-04-30] MEDS ORDERED: Pregabalin CAP(*) 50 MG PO SCH (09:00)
[2017-04-30] MEDS ORDERED: ARIPiprazole TAB* 5 MG PO SCH (09:00)
[2017-04-30] MEDS ORDERED: Metoprolol Tartrate TAB* 25 MG PO SCH (09:00)
[2017-04-30] MEDS ORDERED: Dulaglutide (NF) 1.5 MG/0.5 ML SYRINGE SUBCUT SCH (09:00)
[2017-04-30] MEDS ORDERED: Topiramate TAB(*) 100 MG PO SCH (09:00)
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
[2017-04-30] MEDS ORDERED: Furosemide TAB* 40 MG PO ONE (12:05)
[2017-04-30] MEDS ORDERED: Lisinopril TAB* 10 MG PO ONE (12:05)
[2017-04-30] MEDS ORDERED: Hydrochlorothiazide TAB* 25 MG PO ONE (12:06)
[2017-04-30] MEDS: CMCS: Meloxicam(NF) 7.5 MG TAB PO SCH ×2 (12:17→21:07)
[2017-04-30] MEDS: Vitamin THERAPEUTIC TAB PO SCH (12:18)
[2017-04-30] MEDS: Fluticasone NASAL SPRAY 50MCG* 16 gm SPRAY BTL BOTH NARES SCH (12:19)
[2017-04-30] MEDS: Atorvastatin* 40 MG TAB PO SCH (13:00)
[2017-04-30] MEDS: Insulin ISOPH/REG 70/30 (*) 1 UNITS UNIT SUBCUT SCH ×2 (13:01→16:57)
[2017-04-30] MEDS ORDERED: Insulin ISOPH/REG 70/30 (*) 1 UNITS UNIT SUBCUT SCH (17:00)
[2017-04-30] MEDS: traZODone TAB* 100 MG PO SCH (21:07)
[2017-05-01] MEDS: Vitamin THERAPEUTIC TAB PO SCH (08:49)
[2017-05-01] MEDS: Lisinopril TAB* 10 MG PO SCH (08:49)
[2017-05-01] MEDS: Furosemide TAB* 40 MG PO SCH (08:50)
[2017-05-01] MEDS: Atorvastatin* 40 MG TAB PO SCH (08:50)
[2017-05-01] MEDS: ARIPiprazole TAB* 5 MG PO SCH (08:50)
[2017-05-01] MEDS: Fluticasone NASAL SPRAY 50MCG* 16 gm SPRAY BTL BOTH NARES SCH (08:50)
[2017-05-01] MEDS: CMCS: Meloxicam(NF) 7.5 MG TAB PO SCH ×2 (08:51→22:27)
[2017-05-01] MEDS ORDERED: Hydrochlorothiazide TAB* 25 MG PO SCH (09:00)
--- NOTE | 2017-05-01 10:45 | PN ---
Subjective - Subjective Subjective: psychiatric attending progress note: blood sugars have been running in low 100's patient reports no suicidal ideation. states she feels much better since restarting her psychiatric medications. denies any side effects Objective - Appearance Appearance: Well Developed/Nourished Dysmorphic Features: No Hygiene: Normal Grooming: Fairly Well Kept - Behavior Psychomotor Activities: Normal Exhibits Abnormal Movement: No - Attitude and Relatedness Attitude and Relatedness: Well Related Eye Contact: Good - Speech Quality: Unpressured Latencies: Normal Quantity: Appropriate - Mood Patient's Decription of Mood: "Okay" - Affect Observed Affect: Constricted Affect Consistent with: Dysphoria - Thought Process Patient's Thought Process: Coherent Thought Content: No Passive Wish, No Suicidal Planning, No Homicidal Ideation, No Paranoid Ideation - Sensorium Experiencing Hallucinations: No, Sensorium is Clear Type of Hallucinations: Visual: No, Auditory: No, Command: No - Level of Consciousness Orientation: Yes Intact, Yes Orientated to Time, Yes Orientated to Place, Yes Orientated to Person - Impulse Control Impulse Control: Tenuous - Insight and Judgement Insight and Judgement: Fair - Group Participation Particating in Group Activities: Yes - Medication Management Medication Management Adherence: Yes Assessment - Assessment Merits Inpatient Hospitalization: For Stabilization, [facility] Improvements, For Discharge Planning Clinical Impression: improved mood. more stable. no SI today Plan - Plan Medications: Current Medications Acetaminophen (Tylenol Tab*) 650 mg PO Q4H PRN PRN Reason: PAIN or TEMP > 101 F Al Hydrox/Mg Hydrox/Simethicone (Maalox Plus*) 30 ml PO Q4H PRN PRN Reason: INDIGESTION Albuterol (Ventolin 2.5 Mg/3 Ml Neb.Kay*) 1.25 mg INH Q4H PRN PRN Reason: SHORTNESS OF BREATH Aripiprazole (Abilify Tab*) 5 mg PO DAILY [facility] Last Admin: 05/01/17 08:50 Dose: 5 mg Atorvastatin Calcium (Lipitor*) 40 mg PO DAILY [facility] Last Admin: 05/01/17 08:50 Dose: 40 mg Desvenlafaxine Succinate (Pristiq (Nf)) 100 mg PO BEDTIME [facility] Last Admin: 04/30/17 21:07 Dose: 100 mg Dulaglutide (Trulicity (Nf)) 1.5 mg SUBCUT Q7D [facility] Last Admin: 04/30/17 12:13 Dose: Not Given Fluticasone Propionate (Flonase Nasal [place] 50mcg*) 2 spray BOTH NARES DAILY [facility] Last Admin: 05/01/17 08:50 Dose: Not Given Furosemide (Lasix Tab*) 40 mg PO DAILY@09 [facility] Last Admin: 05/01/17 08:50 Dose: 40 mg Insulin Human Isoph/Insulin Regular (Humulin 70/30 (*)) 100 units SUBCUT BID@12 ,17 [facility] Last Admin: 04/30/17 16:57 Dose: 100 units Lisinopril (Prinivil Tab*) 20 mg PO DAILY@ [facility] Last Admin: 05/01/17 08:49 Dose: 20 mg Meloxicam (Mobic(Nf)) 7.5 mg PO BID [facility] Last Admin: 05/01/17 08:51 Dose: 7.5 mg Multivitamins (Theragran Tab*) 1 tab PO DAILY [facility] Last Admin: 05/01/17 08:49 Dose: 1 tab Trazodone HCl (Desyrel Tab*) 100 mg PO BEDTIME [facility] Last Admin: 04/30/17 21:07 Dose: 100 mg
[2017-05-01] MEDS: Insulin ISOPH/REG 70/30 (*) 1 UNITS UNIT SUBCUT SCH ×2 (11:58→17:18)
[2017-05-01] MEDS: traZODone TAB* 100 MG PO SCH (22:26)
[2017-05-01] MEDS: CMCS: Desvenlafaxine (NF) 50 MG TAB PO SCH (22:28)
[2017-05-02] MEDS: Vitamin THERAPEUTIC TAB PO SCH (09:20)
[2017-05-02] MEDS: ARIPiprazole TAB* 5 MG PO SCH (09:20)
[2017-05-02] MEDS: Atorvastatin* 40 MG TAB PO SCH (09:20)
[2017-05-02] MEDS: CMCS: Meloxicam(NF) 7.5 MG TAB PO SCH ×2 (09:20→22:14)
[2017-05-02] MEDS: Furosemide TAB* 40 MG PO SCH (09:20)
[2017-05-02] MEDS: Lisinopril TAB* 10 MG PO SCH (09:20)
[2017-05-02] MEDS: Fluticasone NASAL SPRAY 50MCG* 16 gm SPRAY BTL BOTH NARES SCH (09:21)
[2017-05-02] MEDS: Insulin ISOPH/REG 70/30 (*) 1 UNITS UNIT SUBCUT SCH ×2 (12:10→16:47)
--- NOTE | 2017-05-02 12:36 | PN ---
Subjective - Subjective Date of Service: 05/02/17 Service Type: [id number] Hosp care 15 min low complexity Subjective: Ms. Mcnamara is seen in weekend coverage for Dr. Arriaag. She is shy but cooperative and states that her mood is improved and that she is tolerating the resumption of psychiatric medications well. She denies SI and is requesting d/ c for Thursday. Objective - Appearance Appearance: Obese Dysmorphic Features: No Hygiene: Normal Grooming: Well Kept - Behavior Psychomotor Activities: Normal Exhibits Abnormal Movement: No - Attitude and Relatedness Attitude and Relatedness: Cooperative Eye Contact: Fair - Speech Quality: Unpressured Latencies: Normal Quantity: Appropriate - Mood Patient's Decription of Mood: "Good" - Affect Observed Affect: Fair Affect Consistent with: Euthymia - Thought Process Patient's Thought Process: Coherent Thought Content: No Passive Wish, No Suicidal Planning, No Homicidal Ideation, No Paranoid Ideation - Sensorium Experiencing Hallucinations: No, Sensorium is Clear Type of Hallucinations: Visual: No, Auditory: No, Command: No - Level of Consciousness Level of Consciousness: Alert Orientation: Yes Intact, Yes Orientated to Time, Yes Orientated to Place, Yes Orientated to Person - Impulse Control Impulse Control: Intact - Insight and Judgement Insight and Judgement: Good - Group Participation Particating in Group Activities: Yes - Medication Management Medication Management Adherence: Yes Assessment - Assessment Merits Inpatient Hospitalization: Consolidate Improvements, Pending Safe DC Plan Inpatient DSM-V Dx: F33.2 Clinical Impression: 46 y.o. single, white female with a history of recurrent depression, PTSD and probable personality pathology who presents voluntarily seeking treatment due to approximately 2 months of worsening depression and emergent SI in the context of self-discontinuation of medications, which is an established pattern of hers. Plan - Plan Treatment Plan: Name: FRANCESCA MCNAMARA Birthdate: 1970 [id number] We have resumed treatment with aripiprazole and desvenlafaxine XR. She is improving and requesting discharge to home early in the week. Continued Medication Management: Continue Outpt Medication Medications: Current Medications Acetaminophen (Tylenol Tab*) 650 mg PO Q4H PRN PRN Reason: PAIN or TEMP > 101 F Al Hydrox/Mg Hydrox/Simethicone (Maalox Plus*) 30 ml PO Q4H PRN PRN Reason: INDIGESTION Albuterol (Ventolin 2.5 Mg/3 Ml Neb.Kay*) 1.25 mg INH Q4H PRN PRN Reason: SHORTNESS OF BREATH Last Admin: 05/02/17 03:07 Dose: 1.25 mg Aripiprazole (Abilify Tab*) 5 mg PO DAILY [facility] Last Admin: 05/02/17 09:20 Dose: 5 mg Atorvastatin Calcium (Lipitor*) 40 mg PO DAILY [facility] Last Admin: 05/02/17 09:20 Dose: 40 mg Desvenlafaxine Succinate (Pristiq (Nf)) 100 mg PO BEDTIME [facility] Last Admin: 05/01/17 22:28 Dose: 100 mg Dulaglutide (Trulicity (Nf)) 1.5 mg SUBCUT Q7D [facility] Last Admin: 04/30/17 12:13 Dose: Not Given Fluticasone Propionate (Flonase Nasal [place] 50mcg*) 2 spray BOTH NARES DAILY [facility] Last Admin: 05/02/17 09:21 Dose: Not Given Furosemide (Lasix Tab*) 40 mg PO DAILY@ [facility] Last Admin: 05/02/17 09:20 Dose: 40 mg Insulin Human Isoph/Insulin Regular (Humulin 70/30 (*)) 100 units SUBCUT BID@12 ,17 [facility] Last Admin: 05/02/17 12:10 Dose: 100 units Lisinopril (Prinivil Tab*) 20 mg PO DAILY@09 [facility] Last Admin: 05/02/17 09:20 Dose: 20 mg Meloxicam (Mobic(Nf)) 7.5 mg PO BID [facility] Last Admin: 05/02/17 09:20 Dose: 7.5 mg Multivitamins (Theragran Tab*) 1 tab PO DAILY [facility] Last Admin: 05/02/17 09:20 Dose: 1 tab Trazodone HCl (Desyrel Tab*) 100 mg PO BEDTIME [facility] Last Admin: 05/01/17 22:26 Dose: 100 mg - Discharge Plan Discharge Plan: Inpatient Hospitalization Lab Results - Lab Results Lab Results: 04/30/17 04/30/17 04/30/17 07:54 11:59 16:35 POC Glucose (mg/dL) 182 H 193 H 175 H 04/30/17 05/01/17 05/01/17 20:33 07:41 11:49 POC Glucose (mg/dL) 98 97 117 H 05/01/17 05/01/17 05/02/17 17:14 21:56 07:38 POC Glucose (mg/dL) 78 110 H 133 H 05/02/17 11:57 POC Glucose (mg/dL) 190 H
[2017-05-02] MEDS: traZODone TAB* 100 MG PO SCH (22:14)
[2017-05-02] MEDS: CMCS: Desvenlafaxine (NF) 50 MG TAB PO SCH (22:15)
[2017-05-02] MEDS: Acetaminophen TAB* 325 MG PO PRN (22:15)
[2017-05-03] MEDS: Vitamin THERAPEUTIC TAB PO SCH (09:24)
[2017-05-03] MEDS: ARIPiprazole TAB* 5 MG PO SCH (09:24)
[2017-05-03] MEDS: Atorvastatin* 40 MG TAB PO SCH (09:25)
[2017-05-03] MEDS: CMCS: Meloxicam(NF) 7.5 MG TAB PO SCH ×2 (09:25→20:58)
[2017-05-03] MEDS: Fluticasone NASAL SPRAY 50MCG* 16 gm SPRAY BTL BOTH NARES SCH (09:26)
[2017-05-03] MEDS: Lisinopril TAB* 10 MG PO SCH (09:27)
[2017-05-03] MEDS: Furosemide TAB* 40 MG PO SCH (09:28)
[2017-05-03] MEDS: Insulin ISOPH/REG 70/30 (*) 1 UNITS UNIT SUBCUT SCH ×2 (11:58→16:36)
[2017-05-03] MEDS: Acetaminophen TAB* 325 MG PO PRN (18:45)
[2017-05-03] MEDS: traZODone TAB* 100 MG PO SCH (20:58)
[2017-05-03] MEDS: CMCS: Desvenlafaxine (NF) 50 MG TAB PO SCH (20:58)
[2017-05-04] MEDS: Fluticasone NASAL SPRAY 50MCG* 16 gm SPRAY BTL BOTH NARES SCH (09:28)
[2017-05-04] MEDS: Furosemide TAB* 40 MG PO SCH (09:28)
[2017-05-04] MEDS: Lisinopril TAB* 10 MG PO SCH (09:28)
[2017-05-04] MEDS: CMCS: Meloxicam(NF) 7.5 MG TAB PO SCH ×2 (09:28→20:40)
[2017-05-04] MEDS: Atorvastatin* 40 MG TAB PO SCH (09:28)
[2017-05-04] MEDS: Vitamin THERAPEUTIC TAB PO SCH (09:28)
[2017-05-04] MEDS: ARIPiprazole TAB* 5 MG PO SCH (09:28)
--- NOTE | 2017-05-04 10:31 | PN ---
Subjective - Subjective Subjective: Psychiatric Attending Progress Note: uneventful weekend. patient attended groups. no evidence of agitation and patient did not voice thought of self harm. Oddly, patient reported that she vomited after all meals but staff never witnessed emesis. When I asked her about this today, she reported that she believed the vomiting was related to cough which is usually a symptom of her asthma. patient reports that she has not been taking her prn asthma medication here as often as she usually takes it at home. I encouraged her to take prn asthma medication here. no cough appreciated during interview. patient reports she feels ready for discharge She has a 3rd cousin who has been visiting her who is willing to accompany her home by bus she is looking forward to attending [facility] program on Thursday morning and agrees to follow up with her providers at [facility] (Dr. Newell and therapist) Objective - Appearance Appearance: Well Developed/Nourished, Obese Dysmorphic Features: No Hygiene: Dirty Grooming: Fairly Well Kept - Behavior Psychomotor Activities: Normal Exhibits Abnormal Movement: No - Attitude and Relatedness Attitude and Relatedness: Cooperative - Speech Quality: Unpressured Latencies: Normal Quantity: Appropriate - Mood Patient's Decription of Mood: "Okay" - Affect Observed Affect: Non-labile - Thought Process Patient's Thought Process: Coherent Thought Content: No Passive Wish, No Suicidal Planning, No Homicidal Ideation, No Paranoid Ideation - Sensorium Type of Hallucinations: Visual: No, Auditory: No, Command: No - Level of Consciousness Level of Consciousness: Alert Orientation: Yes Intact, Yes Orientated to Time, Yes Orientated to Place, Yes Orientated to Person - Impulse Control Impulse Control: Tenuous - Insight and Judgement Insight and Judgement: Fair - Group Participation Particating in Group Activities: Yes - Medication Management Medication Management Adherence: Yes Assessment - Assessment Inpatient DSM-V Dx: F33.2 Clinical Impression: 46 yo with historyof personality disorder, recurrent depression, PTSD admitted with SI, depressive syndrome in context of medication non adherence. patient is back on her medication. Mental status improved. energy, level of interest, motivation improved. suicidal ideation has remitted. Plan - Plan Treatment Plan: Plan: discharge tomorrow continue medications regimen unchanged Medications: Current Medications
[2017-05-04] MEDS: Insulin ISOPH/REG 70/30 (*) 1 UNITS UNIT SUBCUT SCH ×2 (12:18→17:26)
[2017-05-04] MEDS: traZODone TAB* 100 MG PO SCH (20:39)
[2017-05-04] MEDS: CMCS: Desvenlafaxine (NF) 50 MG TAB PO SCH (20:40)
[2017-05-05 08:47] VITALS: BP 135/72
[2017-05-05] MEDS: CMCS: Meloxicam(NF) 7.5 MG TAB PO SCH (09:22)
[2017-05-05] MEDS: ARIPiprazole TAB* 5 MG PO SCH (09:22)
[2017-05-05] MEDS: Lisinopril TAB* 10 MG PO SCH (09:23)
[2017-05-05] MEDS: Atorvastatin* 40 MG TAB PO SCH (09:23)
[2017-05-05] MEDS: Furosemide TAB* 40 MG PO SCH (09:23)
[2017-05-05] MEDS: Vitamin THERAPEUTIC TAB PO SCH (09:23)
[2017-05-05] MEDS: Fluticasone NASAL SPRAY 50MCG* 16 gm SPRAY BTL BOTH NARES SCH (09:24)
[2017-05-05] MEDS: Insulin ISOPH/REG 70/30 (*) 1 UNITS UNIT SUBCUT SCH (11:45)
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
== END 2017-05-05 12:00 | disposition home or self-care (01) | DRG 885 ==
LOC: ED 19:17 → BSU 04-30 00:56
PROVIDERS: ADMIT Psychiatry & Neurology Psychiatry; ATTEND Psychiatry & Neurology Psychiatry
DX: F33.2 Major depressive disorder, recurrent severe without psychotic features (principal); E11.40 Type 2 diabetes mellitus with diabetic neuropathy, unspecified; R45.851 Suicidal ideations; E11.9 Type 2 diabetes mellitus without complications; E78.00 Pure hypercholesterolemia, unspecified; I10 Essential (primary) hypertension; J44.9 Chronic obstructive pulmonary disease, unspecified; G47.30 Sleep apnea, unspecified; M19.90 Unspecified osteoarthritis, unspecified site; K21.9 Gastro-esophageal reflux disease without esophagitis; G43.909 Migraine, unspecified, not intractable, without status migrainosus; F50.9 Eating disorder, unspecified; G47.00 Insomnia, unspecified; E66.9 Obesity, unspecified; F10.21 Alcohol dependence, in remission; F14.21 Cocaine dependence, in remission; F11.21 Opioid dependence, in remission; F60.9 Personality disorder, unspecified; R62.50 Unspecified lack of expected normal physiological development in childhood; F41.9 Anxiety disorder, unspecified; F41.0 Panic disorder [episodic paroxysmal anxiety]; F43.10 Post-traumatic stress disorder, unspecified; Z91.5 Personal history of self-harm; Z98.51 Tubal ligation status; Z82.49 Family history of ischemic heart disease and other diseases of the circulatory system; Z83.3 Family history of diabetes mellitus; Z80.1 Family history of malignant neoplasm of trachea, bronchus and lung; Z91.14 Patient's other noncompliance with medication regimen; Z68.41 Body mass index [BMI] 40.0-44.9, adult; Z88.8 Allergy status to other drugs, medicaments and biological substances; Z79.4 Long term (current) use of insulin
CPT/HCPCS: 36415; 80053; 80061; 80307; 80320; 80329; 81003; 83036; 84443; 85025; 94640; 94760; 99222; 99231; 99238; 99285; A9270-GY; G0480

== ENCOUNTER 2017-05-21 09:31 | Emergency (ER) | payer MEDICARE, MEDICAID ==
[2017-05-21] MEDS ORDERED: Aspirin Low Dose CHEW TAB* 81 MG PO ONE (10:11)
[2017-05-21] MEDS ORDERED: Meclizine TAB* 12.5 MG ONE (10:41)
--- NOTE | 2017-05-21 10:42 | RAD ---
INDICATION: Dizzy COMPARISON: Chest xray 01/26/17 TECHNIQUE: Single AP portable view of the chest was obtained. FINDINGS: Image quality is compromised due to the relative inferiority of a portable chest x-ray. The heart and mediastinum exhibit normal size and contour. The lungs are grossly clear. There is no evidence of a large pleural effusion. Visualized bones are normal for the patient's age. IMPRESSION: No radiographic evidence for acute cardiopulmonary abnormality on this portable chest x-ray.
[2017-05-21] MEDS ORDERED: Meclizine TAB* 12.5 MG PO ONE (10:52)
--- NOTE | 2017-05-21 11:02 | RAD ---
Indication: Dizziness. Comparison: December 15, 2016 MRI. December 15, 2016 CT. Technique: Noncontrast CT vertex of skull through foramen magnum. Report: The sulci, ventricles, and basal cisterns are normal for age. Munoz matter white matter differentiation is preserved without evidence for edema. No intra or extra axial hemorrhage, mass, or fluid collection detected. Unremarkable visualized orbital contents. Unremarkable calvarium and skull base. Unremarkable scalp. The visualized paranasal sinuses and mastoid air spaces are clear. IMPRESSION: Negative unenhanced head CT.
[2017-05-21 11:10] LABS: ABS Basophils 0.1 10^3/ul (0-0.2); ABS Eosinophils 0.2 10^3/ul (0-0.6); ABS Lymphocytes 3.3 10^3/ul (1.0-4.8); ABS Monocytes 0.5 10^3/ul (0-0.8); ABS Neutrophils 7.3 10^3/ul (1.5-7.7); ABS Nucleated RBC 0 10^3/ul; Eosinophil % 1.4 % (0-6); Hematocrit 40 % (35-47); Hemoglobin 13.8 g/dl (12.0-16.0); Lymphocyte % 29.3 % (25-47); Mean Corpuscular HGB Conc 35 g/dl (31-36); Mean Corpuscular Hemoglobin 30 pg (27-31); Mean Corpuscular Volume 87 fL (80-97); Mean Platelet Volume 8 um3 (7.4-10.4); Nucleated Red Blood Cells % 0.1; Platelet Count 315 10^3/ul (150-450); Red Cell Distribution Width 15 % (10.5-15); White Blood Count 11.4 10^3/ul (3.5-10.8)
[2017-05-21 12:48] LABS: Urine Appearance Cloudy; Urine Blood Negative (Negative); Urine Color Yellow; Urine Ketones Negative (Negative); Urine Protein Negative (Negative); Urine Specific Gravity 1.019 (1.010-1.030); Urine Urobilinogen Negative (Negative)
[2017-05-21 13:14] VITALS: BP 104/64
--- NOTE | 2017-05-22 08:20 | ED ---
Marciano Sequeira Angela, scribed for Shaji Dover MD on 05/21/17 at 1000 . Dizziness - HPI Summary HPI Summary: This pt is a 46 y/o female presnting to [facility] c/o dizziness today. Pt describes her dizziness as room spinning. She states she feels "shakiness on the inside of my head." Pt reports she had nausea and diarrhea last week, but none today. Denies ear pain, sore throat, runny nose, sinus pressure, recent URI, chest pain , palpitations. PMHx includes DM, HTN, sleep apnea. - History Of Current Complaint Chief Complaint: EDDizziness Stated Complaint: DIZZY Time Seen by Provider: 05/21/17 09:51 Hx Obtained From: Patient Timing: Hours Severity Currently: Moderate Character: Room Spinning, Dizzy Aggravating Factor(s): Other - ambulating Alleviating Factor(s): Rest Associated Signs And Symptoms: Negative: Nausea, Vomiting, Diarrhea, SOB, Palpitations, Fever, Chills - Allergies/Home Medications Allergies/Adverse Reactions: Allergies Allergy/AdvReac Type Severity Reaction Status Date / Time metformin Allergy Unknown Verified 04/29/17 22:34 Reaction Details PMH/Surg Hx/FS Hx/Imm Hx Endocrine/Hematology History: Reports: Hx Diabetes - DM II, Hx Anemia Denies: Hx Anticoagulant Therapy, Hx Blood Disorders, Hx Unexplained Bleeding , Other Endocrine/Hematological Disorders Cardiovascular History: Reports: Hx Angina, Hx Hypercholesterolemia, Hx Hypertension Denies: Hx Cardiac Arrest, Hx Embolism, Hx Pacemaker/ICD, Other Cardiovascular Problems/Disorders Respiratory History: Reports: Hx Asthma, Hx Chronic Obstructive Pulmonary Disease (COPD), Other Respiratory Problems/Disorders - SLEEP APNEA Denies: Hx Sleep Apnea - Pt reports no longer "after I lost a bunch of weight " GI History: Reports: Hx Gastroesophageal Reflux Disease Denies: Other GI Disorders History: Denies: Hx Kidney Stones, Other Problems/Disorders Musculoskeletal History: Reports: Hx Arthritis - Bilateral knees, Hx Back Problems Comment Only: Other Musculoskeletal History - Neuropathy Sensory History: Reports: Hx Contacts or Glasses - Pt in possession of, Hx Vision Problem Denies: Hx Cataracts, Hx Eye Injury, Hx Eye Prosthesis, Hx Glaucoma, Hx Macular Degeneration, Hx Deafness, Hx Hearing Aid, Other Sensory Impairments Opthamlomology History: Reports: Hx Contacts or Glasses - Pt in possession of, Hx Vision Problem Denies: Hx Cataracts, Hx Eye Injury, Hx Eye Prosthesis, Hx Glaucoma, Hx Macular Degeneration, Other Sensory Impairments Neurological History: Reports: Hx Developmental Delay, Hx Headaches - "only when I don't eat", Hx Migraine, Other Neuro Impairments/Disorders - diabetic neuropathy Denies: Hx Dementia Psychiatric History: Reports: Hx Anxiety, Hx Eating Disorder, Hx Depression, Hx Panic Disorder, Hx Post Traumatic Stress Disorder, Hx Inpatient Treatment, Hx Community Mental Health Tx, Hx Suicide Attempt, Hx of Violent Episodes Against Others, Hx Substance Abuse, Other Psychiatric Issues/Disorders - borderline personality disorder Denies: Hx Schizophrenia - Surgical History Surgery Procedure, Year, and Place: tubal ligation Hx Anesthesia Reactions: No Infectious Disease History: No Infectious Disease History: Denies: Hx Clostridium Difficile, Hx Hepatitis, Hx Human Immunodeficiency Virus (HIV), Hx Shingles, Hx Tuberculosis, Traveled Outside the [place] in Last 30 Days - Family History Known Family History: Positive: Hypertension, Diabetes, Other - Lung CA - Social History Alcohol Use: None Substance Use Type: Reports: None Smoking Status (MU): Never Smoked Tobacco Review of Systems Negative: Fever, Chills Negative: Sore Throat, Ear Ache, Nasal Discharge, Other - sinus pressure, recent URI symptoms Negative: Palpitations, Chest Pain Negative: Diarrhea, Nausea Neurological: Other - POS: dizziness All Other Systems Reviewed And Are Negative: Yes Physical Exam - Summary Physical Exam Summary: VITAL SIGNS: Reviewed. GENERAL: Patient is a well-developed and nourished female who is lying comfortable in the stretcher. Patient is not in any acute respiratory distress. HEAD AND FACE: No signs of trauma. No ecchymosis, hematomas or skull depressions. No sinus tenderness. EYES: PERRLA, EOMI x 2, No injected conjunctiva, no nystagmus. EARS: Hearing grossly intact. Ear canals and tympanic membranes are within normal limits. MOUTH: Oropharynx within normal limits. NECK: Supple, trachea is midline, no adenopathy, no JVD, no carotid bruit, no c- spine tenderness, neck with full ROM. CHEST: Symmetric, no tenderness at palpation LUNGS: Clear to auscultation bilaterally. No wheezing or crackles. CVS: Regular rate and rhythm, S1 and S2 present, no murmurs or gallops appreciated. ABDOMEN: Soft, non-tender. No signs of distention. No rebound no guarding, and no masses palpated. Bowel sounds are normal. EXTREMITIES: FROM in all major joints, no edema, no cyanosis or clubbing. NEURO: Alert and oriented x 3. No acute neurological deficits. Speech is normal and follows commands. SKIN: Dry and warm GCS: 15 Triage Information Reviewed: Yes Vital Signs On Initial Exam: Initial Vitals Temp Pulse Resp BP Pulse Ox 98.7 F 95 20 114/81 96 05/21/17 09:35 05/21/17 09:35 05/21/17 09:35 05/21/17 09:35 05/21/17 09:35 Vital Signs Reviewed: Yes - [place] Coma Scale Best Eye Response: 4 - Spontaneous Best Motor Response: 6 - Obeys Commands Best Verbal Response: 5 - Oriented Coma Scale Total: 15 Diagnostics - Vital Signs Vital Signs Temp Pulse Resp BP Pulse Ox 05/21/17 09:35 98.7 F 95 20 114/81 96 - Laboratory Result Diagrams: 05/21/17 10:50 05/21/17 10:50 Lab Statement: Any lab studies that have been ordered have been reviewed, and results considered in the medical decision making process. - Radiology Chest XR Xray Interpretation: No Acute Changes - IMPRESSION: No radiographic evidence for acute cardiopulmonary abnormalitiy on this portable chest x-ray. Dr. Dover has reviewed this radiology report. Radiology Interpretation Completed By: Radiologist - CT Brain CT CT Interpretation: No Acute Changes - IMPRESSION: Negative unenhanced head CT. Dr. Dover has reviewed this radiology report. CT Interpretation Completed By: Radiologist - EKG 10:16 Cardiac Rate: NL EKG Rhythm: Sinus Rhythm - at 86 bpm EKG Interpretation: No ST elevation. EKG Comparison: No Significant Change - similar to prior EKG on 01/26/17. Dizzy Course/Dx - Course Assessment/Plan: This pt is a 46 y/o female presnting to [facility] c/o dizziness today. Pt describes her dizziness as room spinning. She states she feels "shakiness on the inside of my head." Pt reports she had nausea and diarrhea last week, but none today. Denies ear pain, sore throat, runny nose, sinus pressure, recent URI, chest pain, palpitations. PMHx includes DM, HTN, sleep apnea. Test results without any significant abnormalities except for WBC of 11.4. Urinalysis is negative for UTI. Urine toxicology is negative. Chest XR: No radiographic evidence for acute cardiopulmonary abnormality on this portable chest x-ray. Head CT: Negative unenhanced head CT. In the ED course the pt was given Meclizine and after this medication the symptoms resolved. At this point the pt is hemodynamically stable, alert and oriented x3. Pt will be discharged to home with follow up from her PCP. She is ambulating out of the ED without dizziness. She is instructed to return to the ED for any worsening symptoms. - Diagnoses Provider Diagnoses: Vertigo Discharge - Discharge Plan Condition: Stable Disposition: HOME Prescriptions: Meclizine TAB* [Antivert 12.5 TAB*] 25 mg PO TID #30 tab Patient Education Materials: Vertigo (ED) Referrals: Alberto Gomez MD [Primary Care Provider] - 3 Days Additional Instructions: Please follow up with your primary care provider. RETURN TO THE ED FOR ANY WORSENING SYMPTOMS. The documentation as recorded by the Marciano puckett Angela accurately reflects the service I personally performed and the decisions made by , Shaji Dover MD.
== END 2017-05-21 13:13 | disposition home or self-care (01) ==
LOC: ED 09:31
DX: R42 Dizziness and giddiness (principal); E11.9 Type 2 diabetes mellitus without complications; Z87.09 Personal history of other diseases of the respiratory system
CPT/HCPCS: 36415; 70450; 71045; 80053; 80307; 80320; 81003; 82550; 83605; 83735; 83880; 84443; 84484; 84702; 85025; 86140; 93005; 99282; A9270-GY; G0480

== ENCOUNTER 2017-08-09 10:28 | Emergency (ER) | payer MEDICARE, MEDICAID ==
[2017-08-09] MEDS ORDERED: Ibuprofen TAB* 800 MG PO ONE (11:43)
[2017-08-09 12:08] VITALS: BP 123/93
--- NOTE | 2017-08-09 19:01 | ED ---
Deandre Sequeira Stephanie, scribed for Shaji Dover MD on 08/09/17 at 1119 . Skin Complaint - HPI Summary HPI Summary: The pt is a 47 y/o F presenting to the ED with c/o abscess under the L arm since 07/26/17. The pt states she had a mammogram a few weeks ago where a cyst was discovered and its now painful. Her pain is rated as an 8 in severity. - History of Current Complaint Chief Complaint: EDRashSkinAbscess Time Seen by Provider: 08/09/17 10:45 Stated Complaint: CYST Hx Obtained From: Patient Onset/Duration: Started Weeks Ago, Still Present Skin Exposure Onset/Duration: Weeks Ago Timing: Constant Current Severity: Moderate Pain Intensity: 8 Pain Scale Used: 0-10 Numeric Skin Location: Arm - under L arm Character: Pain Aggravating Symptom(s): Touch Alleviating Symptom(s): Nothing - Additional Pertinent History Primary Care Physician: [id number] - Allergy/Home Medications Allergies/Adverse Reactions: Allergies Allergy/AdvReac Type Severity Reaction Status Date / Time metformin Allergy Unknown Verified 08/09/17 10:36 Reaction Details Home Medications: Home Medications Insulin ISOPH/REG 70/30 (*) [HumuLIN 70/30 (*)] 75 units SUBCUT BID WITH MEALS 08/09/17 [History Confirmed 08/09/17] Pregabalin CAP(*) [Lyrica CAP(*)] 150 mg PO TID 08/09/17 [History Confirmed ] PMH/Surg Hx/FS Hx/Imm Hx Endocrine/Hematology History: Reports: Hx Diabetes - DM II, Hx Anemia Denies: Hx Anticoagulant Therapy, Hx Blood Disorders, Hx Unexplained Bleeding , Other Endocrine/Hematological Disorders Cardiovascular History: Reports: Hx Angina, Hx Hypercholesterolemia, Hx Hypertension Denies: Hx Cardiac Arrest, Hx Embolism, Hx Pacemaker/ICD, Other Cardiovascular Problems/Disorders Respiratory History: Reports: Hx Asthma, Hx Chronic Obstructive Pulmonary Disease (COPD), Other Respiratory Problems/Disorders - SLEEP APNEA Denies: Hx Sleep Apnea - Pt reports no longer "after I lost a bunch of weight " GI History: Reports: Hx Gastroesophageal Reflux Disease Denies: Other GI Disorders History: Denies: Hx Kidney Stones, Other Problems/Disorders Musculoskeletal History: Reports: Hx Arthritis - Bilateral knees, Hx Back Problems Comment Only: Other Musculoskeletal History - Neuropathy Sensory History: Reports: Hx Contacts or Glasses - Pt in possession of, Hx Vision Problem Denies: Hx Cataracts, Hx Eye Injury, Hx Eye Prosthesis, Hx Glaucoma, Hx Macular Degeneration, Hx Deafness, Hx Hearing Aid, Other Sensory Impairments Opthamlomology History: Reports: Hx Contacts or Glasses - Pt in possession of, Hx Vision Problem Denies: Hx Cataracts, Hx Eye Injury, Hx Eye Prosthesis, Hx Glaucoma, Hx Macular Degeneration, Other Sensory Impairments Neurological History: Reports: Hx Developmental Delay, Hx Headaches - "only when I don't eat", Hx Migraine, Other Neuro Impairments/Disorders - diabetic neuropathy Denies: Hx Dementia Psychiatric History: Reports: Hx Anxiety, Hx Eating Disorder, Hx Depression, Hx Panic Disorder, Hx Post Traumatic Stress Disorder, Hx Inpatient Treatment, Hx Community Mental Health Tx, Hx Suicide Attempt, Hx of Violent Episodes Against Others, Hx Substance Abuse, Other Psychiatric Issues/Disorders - borderline personality disorder Denies: Hx Schizophrenia - Surgical History Surgery Procedure, Year, and Place: tubal ligation Hx Anesthesia Reactions: No Infectious Disease History: No Infectious Disease History: Denies: Hx Clostridium Difficile, Hx Hepatitis, Hx Human Immunodeficiency Virus (HIV), Hx Shingles, Hx Tuberculosis, Traveled Outside the [place] in Last 30 Days - Family History Known Family History: Positive: Hypertension, Diabetes, Other - Lung CA - Social History Occupation: Unemployed Lives: Dormitory/Roommates Alcohol Use: None Hx Substance Use: No Substance Use Type: Reports: None Hx Tobacco Use: No Smoking Status (MU): Never Smoked Tobacco Have You Smoked in the Last Year: No Review of Systems Negative: Fever Positive: Other - abscess under L arm Negative: Slurred Speech All Other Systems Reviewed And Are Negative: Yes Physical Exam - Summary Physical Exam Summary: VITAL SIGNS: Reviewed. GENERAL: Patient is a well-developed and nourished FEMALE who is lying comfortable in the stretcher. Patient is not in any acute respiratory distress. HEAD AND FACE: No signs of trauma. No ecchymosis, hematomas or skull depressions. No sinus tenderness. EYES: PERRLA, EOMI x 2, No injected conjunctiva, no nystagmus. EARS: Hearing grossly intact. Ear canals and tympanic membranes are within normal limits. MOUTH: Oropharynx within normal limits. NECK: Supple, trachea is midline, no adenopathy, no JVD, no carotid bruit, no c- spine tenderness, neck with full ROM. CHEST: Symmetric, no tenderness at palpation LUNGS: Clear to auscultation bilaterally. No wheezing or crackles. CVS: Regular rate and rhythm, S1 and S2 present, no murmurs or gallops appreciated. ABDOMEN: Soft, non-tender. No signs of distention. No rebound no guarding, and no masses palpated. Bowel sounds are normal. EXTREMITIES: FROM in all major joints, no edema, no cyanosis or clubbing. NEURO: Alert and oriented x 3. No acute neurological deficits. Speech is normal and follows commands. SKIN: Dry and warm, cellulitis, tender and indurated abscess in L underarm Triage Information Reviewed: Yes Vital Signs On Initial Exam: Initial Vitals Temp Pulse Resp BP Pulse Ox 96.7 F 96 18 126/87 95 08/09/17 10:36 08/09/17 10:36 08/09/17 10:36 08/09/17 10:36 08/09/17 10:36 Vital Signs Reviewed: Yes Diagnostics - Vital Signs Vital Signs Temp Pulse Resp BP Pulse Ox 08/09/17 10:36 96.7 F 96 18 126/87 95 - Laboratory Lab Statement: Any lab studies that have been ordered have been reviewed, and results considered in the medical decision making process. Re-Evaluation - Re-Evaluation First Eval Re-Evaluation Time: 11:30 Change: Unchanged - ED physician re-evaluated the lump under the L arm of the pt and it was discovered the lump was not an abscess but a lymph node. Course/Dx - Course Assessment/Plan: This patient is a 47-year-old female who presents to the emergency department with a chief complaint of left underarm abscess. The patient reports that she has been taking antibiotics and the pain has increased therefore she decided to come to the ED. She also reports that she was sent to the nurse practitioner from the primary care office. In the physical exam the patient has 2 intubations and possibly abscess versus lymph node in the right armpit. I tried to I&D one of the induration that is with erythema and increasing tenderness and there was no purulent discharge. I believe that the patient doesnt have an abscess and think that the patient has enlarged lymph nodes. When I was explaining this to the patient the findings she reports a couple weeks ago she had a mammogram and they found his enlarged lymph nodes and she has an appointment with a prescription at [facility] in the next couple weeks. Therefore I applied bacitracin to the small incision and the recommended to continue applying bacitracin. She reports that she is up-to- date on vaccinations. Therefore the patient will be discharged home with follow -up with the breast surgeon. The patient is hemodynamically stable alert and oriented 3 - Diagnoses Provider Diagnoses: Lymph nodes enlarged Discharge - Sign-Out/Discharge Documenting (check all that apply): Discharge/Admit/Transfer - Discharge - Discharge Plan Condition: Stable Disposition: HOME Patient Education Materials: Lymphadenopathy (ED) Referrals: Alberto Gomez MD [Primary Care Provider] - 3 Days Additional Instructions: Return to the ED for new or worsening symptoms. The documentation as recorded by the Deandre puckett Stephanie accurately reflects the service I personally performed and the decisions made by , Shaji Dover MD.
== END 2017-08-09 12:08 | disposition home or self-care (01) ==
LOC: ED 10:28
DX: R59.0 Localized enlarged lymph nodes (principal); E11.9 Type 2 diabetes mellitus without complications; Z79.4 Long term (current) use of insulin; Z88.8 Allergy status to other drugs, medicaments and biological substances
CPT/HCPCS: 99282; A9270-GY

== ENCOUNTER 2017-10-18 09:28 | Emergency (ER) | payer MEDICARE, MEDICAID ==
[2017-10-18 10:23] LABS: ABS Basophils 0.1 10^3/ul (0-0.2); ABS Eosinophils 0 10^3/ul (0-0.6); ABS Lymphocytes 3.1 10^3/ul (1.0-4.8); ABS Monocytes 0.6 10^3/ul (0-0.8); ABS Neutrophils 9.9 10^3/ul (1.5-7.7); ABS Nucleated RBC 0 10^3/ul; Eosinophil % 0.3 % (0-6); Hematocrit 45 % (35-47); Hemoglobin 15.3 g/dl (12.0-16.0); Lymphocyte % 22.5 % (25-47); Mean Corpuscular HGB Conc 34 g/dl (31-36); Mean Corpuscular Hemoglobin 30 pg (27-31); Mean Corpuscular Volume 88 fL (80-97); Mean Platelet Volume 7.9 um3 (7.4-10.4); Nucleated Red Blood Cells % 0.1; Platelet Count 310 10^3/ul (150-450); Red Blood Count 5.13 10^6/ul (4.00-5.40); Red Cell Distribution Width 15 % (10.5-15); White Blood Count 13.9 10^3/ul (3.5-10.8)
[2017-10-18 10:39] LABS: EGFR Non-African American 110.5 (>60)
[2017-10-18 11:01] LABS: Urine Appearance Cloudy; Urine Blood Negative (Negative); Urine Color Yellow; Urine Ketones 2+ (Negative); Urine Protein Negative (Negative); Urine Red Blood Cell 3+(>10/hpf) (Absent); Urine Specific Gravity 1.032 (1.010-1.030); Urine Urobilinogen Negative (Negative); Urine White Blood Cell 3+(>20/hpf) (Absent)
--- NOTE | 2017-10-18 11:07 | ED ---
Abdominal Pain/Female - HPI Summary HPI Summary: This is lavern Pablo documenting for attending Clifton Long MD. This patient is a 47 year old F presenting to [facility] with a chief complaint of abdominal pain since roughly 5 days ago. The patient rates the pain 8/10 in severity. Patient reports nausea, vomiting, severe constipation, dysuria, malodorous urine, and chronic back pain. Pt has not had a BM for 4 days, but usually has them twice a day. Pt reports they have not had anything to eat or drink for 5 days without emesis. Pt reports she tried to treat her yeast infection with Monistat 5 days ago but her symptoms were not alleviated. Pt reports that the abd pain and GI/ symptoms may be a result of a yeast infection aggravating her DM. Pt was put on antibiotics 2 weeks ago for a cyst under her arm. Allergy to metformin. PMHX DM. - History of Current Complaint Chief Complaint: EDAbdPain Stated Complaint: ABD PAIN Time Seen by Provider: 10/18/17 10:30 Hx Obtained From: Patient Onset/Duration: Gradual Onset, Lasting Days Timing: Constant Severity Initially: Moderate Severity Currently: Severe Pain Intensity: 8 Pain Scale Used: 0-10 Numeric Character: Cramping Aggravating Factor(s): Food Associated Signs and Symptoms: Positive: Back Pain, Constipation, Urinary Symptoms, Nausea, Vomiting Allergies/Adverse Reactions: Allergies Allergy/AdvReac Type Severity Reaction Status Date / Time metformin Allergy Unknown Verified 10/18/17 10:40 Reaction Details Home Medications: Home Medications Amlodipine Besylate [Norvasc 5 mg tab] 5 mg PO DAILY 10/18/17 [History Confirmed 10/18/17] Desvenlafaxine Succinate [Desvenlafaxine Succinate ER] 100 mg PO QAM 10/18/17 [ History Confirmed 10/18/17] Metoprolol Tartrate TAB* [Lopressor TAB*] 1 tab PO BID 10/18/17 [History Confirmed 10/18/17] Topiramate [Topamax] 1 tab PO TID 10/18/17 [History Confirmed 10/18/17] traZODone TAB* [Desyrel TAB*] 200 mg PO BEDTIME 10/18/17 [History Confirmed 07/31] PMH/Surg Hx/FS Hx/Imm Hx Endocrine/Hematology History: Reports: Hx Diabetes - DM II, Hx Anemia Denies: Hx Anticoagulant Therapy, Hx Blood Disorders, Hx Unexplained Bleeding , Other Endocrine/Hematological Disorders Cardiovascular History: Reports: Hx Angina, Hx Hypercholesterolemia, Hx Hypertension Denies: Hx Cardiac Arrest, Hx Embolism, Hx Pacemaker/ICD, Other Cardiovascular Problems/Disorders Respiratory History: Reports: Hx Asthma, Hx Chronic Obstructive Pulmonary Disease (COPD), Other Respiratory Problems/Disorders - SLEEP APNEA Denies: Hx Sleep Apnea - Pt reports no longer "after I lost a bunch of weight " GI History: Reports: Hx Gastroesophageal Reflux Disease Denies: Other GI Disorders History: Denies: Hx Kidney Stones, Other Problems/Disorders Musculoskeletal History: Reports: Hx Arthritis - Bilateral knees, Hx Back Problems Comment Only: Other Musculoskeletal History - Neuropathy Sensory History: Reports: Hx Contacts or Glasses - Pt in possession of, Hx Vision Problem Denies: Hx Cataracts, Hx Eye Injury, Hx Eye Prosthesis, Hx Glaucoma, Hx Macular Degeneration, Hx Deafness, Hx Hearing Aid, Other Sensory Impairments Opthamlomology History: Reports: Hx Contacts or Glasses - Pt in possession of, Hx Vision Problem Denies: Hx Cataracts, Hx Eye Injury, Hx Eye Prosthesis, Hx Glaucoma, Hx Macular Degeneration, Other Sensory Impairments Neurological History: Reports: Hx Developmental Delay, Hx Headaches - "only when I don't eat", Hx Migraine, Other Neuro Impairments/Disorders - diabetic neuropathy Denies: Hx Dementia Psychiatric History: Reports: Hx Anxiety, Hx Eating Disorder, Hx Depression, Hx Panic Disorder, Hx Post Traumatic Stress Disorder, Hx Inpatient Treatment, Hx Community Mental Health Tx, Hx Suicide Attempt, Hx of Violent Episodes Against Others, Hx Substance Abuse, Other Psychiatric Issues/Disorders - borderline personality disorder Denies: Hx Schizophrenia - Surgical History Surgery Procedure, Year, and Place: tubal ligation Hx Anesthesia Reactions: No Infectious Disease History: No Infectious Disease History: Denies: Hx Clostridium Difficile, Hx Hepatitis, Hx Human Immunodeficiency Virus (HIV), Hx Shingles, Hx Tuberculosis, Traveled Outside the [place] in Last 30 Days - Family History Known Family History: Positive: Hypertension, Diabetes, Other - Lung CA - Social History Alcohol Use: None Hx Substance Use: No Substance Use Type: Reports: None Hx Tobacco Use: No Smoking Status (MU): Never Smoked Tobacco Have You Smoked in the Last Year: No Review of Systems Positive: Abdominal Pain, Vomiting, Nausea Positive: dysuria, pain Positive: Other - Back pain All Other Systems Reviewed And Are Negative: Yes Physical Exam - Summary Physical Exam Summary: Appearance: The patient is well-nourished in no acute distress and in no acute pain. Skin: The skin is warm and dry and skin color reflects adequate perfusion. HEENT: The head is normocephalic and atraumatic. The pupils are equal and reactive. The conjunctivae are clear and without drainage. Nares are patent and without drainage. Mouth reveals dry mucous membranes and the throat is without erythema and exudate. The external ears are intact. The ear canals are patent and without drainage. The tympanic membranes are intact. Neck: The neck is supple with full range of motion and non-tender. There are no carotid bruits. There is no neck vein distension. Respiratory: Chest is non-tender. Lungs are clear to auscultation and breath sounds are symmetrical and equal. Cardiovascular: There is no murmur or rub auscultated. There is no peripheral edema and pulses are symmetrical and equal. Tachycardic. Abdomen: The abdomen is soft and non-tender. There are normal bowel sounds heard in all four quadrants and there is no organomegaly palpated. Musculoskeletal: There is no back tenderness noted. Extremities are non-tender with full range of motion. There is good capillary refill. There is no peripheral edema or calf tenderness elicited. Neurological: Patient is alert and oriented to person, place and time. The patient has symmetrical motor strength in all four extremities. Cranial nerves are grossly intact. Deep tendon reflexes are symmetrical and equal in all four extremities. Psychiatric: The patient has an appropriate affect and does not exhibit any anxiety or depression. Triage Information Reviewed: Yes Vital Signs On Initial Exam: Initial Vitals Temp Pulse Resp BP Pulse Ox 98.1 F 120 16 139/99 96 10/18/17 09:31 10/18/17 09:31 10/18/17 09:31 10/18/17 09:31 10/18/17 09:31 Vital Signs Reviewed: Yes Diagnostics - Vital Signs Vital Signs Temp Pulse Resp BP Pulse Ox 10/18/17 10:52 103 125/91 94 10/18/17 10:51 103 95 10/18/17 09:31 98.1 F 120 16 139/99 96 - Laboratory Lab Results: Lab Results 10/18/17 10/18/17 10/18/17 Range/Units 10:16 10:16 10:16 WBC 13.9 H (3.5-10.8) 10^3/ul RBC 5.13 (4.00-5.40) 10^6/ul Hgb 15.3 (12.0-16.0) g/dl Hct 45 (35-47) % MCV 88 (80-97) fL MCH 30 (27-31) pg MCHC 34 (31-36) g/dl RDW 15 (10.5-15) % Plt Count 310 (150-450) 10^3/ul MPV 7.9 (7.4-10.4) um3 Neut % (Auto) 71.6 (38-83) % Lymph % (Auto) 22.5 L (25-47) % [place] % (Auto) 4.7 (0-7) % Eos % (Auto) 0.3 (0-6) % Baso % (Auto) 0.9 (0-2) % Absolute Neuts (auto) 9.9 H (1.5-7.7) 10^3/ul Absolute Lymphs (auto) 3.1 (1.0-4.8) 10^3/ul Absolute Monos (auto) 0.6 (0-0.8) 10^3/ul Absolute Eos (auto) 0 (0-0.6) 10^3/ul Absolute Basos (auto) 0.1 (0-0.2) 10^3/ul Absolute Nucleated RBC 0 10^3/ul Nucleated RBC % 0.1 Sodium 130 L (135-145) mmol/L Potassium 4.1 (3.5-5.0) mmol/L Chloride 95 L (101-111) mmol/L Carbon Dioxide 26 (22-32) mmol/L Anion Gap 9 (2-11) mmol/L BUN 7 (6-24) mg/dL Creatinine 0.58 (0.51-0.95) mg/dL Est GFR ( Amer) 133.7 (>60) Est GFR (Non-Af Amer) 110.5 (>60) BUN/Creatinine Ratio 12.1 (8-20) Glucose 364 H (70-100) mg/dL Lactic Acid 1.3 (0.5-2.0) mmol/L Calcium 9.7 (8.6-10.3) mg/dL Total Bilirubin 0.90 (0.2-1.0) mg/dL AST 17 (13-39) U/L ALT 23 (7-52) U/L Alkaline Phosphatase 120 H (34-104) U/L C-Reactive Protein 52.79 H (<8.01) mg/L Total Protein 8.4 (6.4-8.9) g/dL Albumin 4.1 (3.2-5.2) g/dL Globulin 4.3 H (2-4) g/dL Albumin/Globulin Ratio 1.0 (1-3) Lipase 26 (11.0-82.0) U/L Beta HCG, Quant < 0.60 mIU/mL Urine Color Urine Appearance Urine pH (5-9) Ur Specific [place] (1.010-1.030) Urine Protein (Negative) Urine Ketones (Negative) Urine Blood (Negative) Urine Nitrate (Negative) Urine Bilirubin (Negative) Urine Urobilinogen (Negative) Ur Leukocyte Esterase (Negative) Urine WBC (Auto) (Absent) Urine RBC (Auto) (Absent) Ur Squamous Epith Cells (Absent) Urine Bacteria (Absent) Urine Glucose (Negative) 10/18/17 Range/Units 10:30 WBC (3.5-10.8) 10^3/ul RBC (4.00-5.40) 10^6/ul Hgb (12.0-16.0) g/dl Hct (35-47) % MCV (80-97) fL MCH (27-31) pg MCHC (31-36) g/dl RDW (10.5-15) % Plt Count (150-450) 10^3/ul MPV (7.4-10.4) um3 Neut % (Auto) (38-83) % Lymph % (Auto) (25-47) % [place] % (Auto) (0-7) % Eos % (Auto) (0-6) % Baso % (Auto) (0-2) % Absolute Neuts (auto) (1.5-7.7) 10^3/ul Absolute Lymphs (auto) (1.0-4.8) 10^3/ul Absolute Monos (auto) (0-0.8) 10^3/ul Absolute Eos (auto) (0-0.6) 10^3/ul Absolute Basos (auto) (0-0.2) 10^3/ul Absolute Nucleated RBC 10^3/ul Nucleated RBC % Sodium (135-145) mmol/L Potassium (3.5-5.0) mmol/L Chloride (101-111) mmol/L Carbon Dioxide (22-32) mmol/L Anion Gap (2-11) mmol/L BUN (6-24) mg/dL Creatinine (0.51-0.95) mg/dL Est GFR ( Amer) (>60) Est GFR (Non-Af Amer) (>60) BUN/Creatinine Ratio (8-20) Glucose (70-100) mg/dL Lactic Acid (0.5-2.0) mmol/L Calcium (8.6-10.3) mg/dL Total Bilirubin (0.2-1.0) mg/dL AST (13-39) U/L ALT (7-52) U/L Alkaline Phosphatase (34-104) U/L C-Reactive Protein (<8.01) mg/L Total Protein (6.4-8.9) g/dL Albumin (3.2-5.2) g/dL Globulin (2-4) g/dL Albumin/Globulin Ratio (1-3) Lipase (11.0-82.0) U/L Beta HCG, Quant mIU/mL Urine Color Yellow Urine Appearance Cloudy Urine pH 5.0 (5-9) Ur Specific [place] 1.032 H (1.010-1.030) Urine Protein Negative (Negative) Urine Ketones 2+ A (Negative) Urine Blood Negative (Negative) Urine Nitrate Negative (Negative) Urine Bilirubin Negative (Negative) Urine Urobilinogen Negative (Negative) Ur Leukocyte Esterase 3+ A (Negative) Urine WBC (Auto) 3+(>20/hpf) A (Absent) Urine RBC (Auto) 3+(>10/hpf) A (Absent) Ur Squamous Epith Cells Present A (Absent) Urine Bacteria Absent (Absent) Urine Glucose 3+(>=500 mg/dl) A (Negative) Result Diagrams: 10/18/17 10:16 10/18/17 10:16 Lab Statement: Any lab studies that have been ordered have been reviewed, and results considered in the medical decision making process. - CT Abd/Pelvis CT Interpretation Completed By: Radiologist - Hepatic steatosis. No abnormal masses or fluid collections are noted. Nonobstructing calculi are noted in the right kidney. No evidence of obstructive uropathy is noted. Overall no changes noted since previous exam. ED Physician has reviewed this report Abdominal Pain Fem Course/Dx - Course Course Of Treatment: Ms. Mcnamara presented to the emergency department complaining of dysuria and diffuse abdominal pain accompanied by nausea and vomiting for 5- 7 days. She tried using Monistat because she thought it was a yeast infection. She denies back pain or fevers. Her abdomen was mildly if at all tender. She had a slight leukocytosis and are grossly positive U/A. Noncontrasted CT was negative for any obstructive problem and she will be treated with by mouth Cipro after a dose of IV Cipro and fluids here. - Diagnoses Provider Diagnoses: UTI (urinary tract infection) Discharge - Sign-Out/Discharge Documenting (check all that apply): Patient Departure - Discharge - Discharge Plan Condition: Stable Disposition: HOME Prescriptions: Ciprofloxacin TAB* [Cipro Tab*] 500 mg PO BID #20 tab Patient Education Materials: Urinary Tract Infection in Women (ED) Referrals: Alberto Gomez MD [Primary Care Provider] - 3 Days Additional Instructions: RETURN TO THE EMERGENCY DEPARTMENT FOR CHANGING OR WORSENING SYMPTOMS. - Billing Disposition and Condition Condition: STABLE Disposition: Home
[2017-10-18] MEDS ORDERED: Ciprofloxacin 400MG IVPREMIX(* 400 MG/200 ML BAG IVPB ONE (11:08)
[2017-10-18] MEDS ORDERED: Ketorolac INJ* 30 MG/ML 1 ML VIAL IV PUSH ONE (11:08)
[2017-10-18] MEDS ORDERED: Ondansetron INJ* 2 MG/ML VIAL IV ONE (11:08)
[2017-10-18] MEDS ORDERED: NS 0.9% 1000 ML* 1,000 ML IV ONE (11:08)
[2017-10-18] MEDS ORDERED: Cefepime 2 GM in Dextrose(*) 0 GM/0 ML BAG IV ONE (11:19)
[2017-10-18] MEDS ORDERED: CIPROFLOXACIN ONE (11:22)
[2017-10-18] MEDS ORDERED: Ciprofloxacin 400MG IVPREMIX(* 400 MG/200 ML BAG ONE (11:27)
--- NOTE | 2017-10-18 11:46 | RAD ---
Indication: Abdominal pain. CT of the abdomen and pelvis was performed without oral or IV contrast administration coronal and sagittal reconstructed images were obtained. Comparison is made with previous exam dated March 19, 2016. Lung bases demonstrate no pleural fluid, nodules or masses. Heart is of normal size without evidence of pericardial effusion. The liver is normal in size. It is diffusely decreased in density consistent with hepatic steatosis. The gallbladder demonstrates no calcified gallstones. No pericholecystic fluid or wall thickening is noted. The spleen is normal in size. Pancreas demonstrates no mass effect or ductal dilatation. The common duct is not dilated. No adrenal masses are noted. The kidneys demonstrate no hydronephrosis. Calculi are noted in the midportion of the right kidney measuring up to 8 mm. No retroperitoneal lymphadenopathy is noted. No dilated loops of bowel are noted. CT of the pelvis demonstrates no retroperitoneal or pelvic lymphadenopathy. Uterus and ovaries are unremarkable. Appendix is visualized and is within normal limits. No free fluid is noted in the pelvis. Cysts are noted in the ovaries bilaterally. Urinary bladder is otherwise unremarkable. The bony structures are grossly unremarkable. IMPRESSION: Hepatic steatosis. No abnormal masses or fluid collections are noted. Nonobstructing calculi are noted in the right kidney. No evidence of obstructive uropathy is noted. Overall no changes noted since previous exam.
[2017-10-18 12:27] VITALS: BP 131/86
== END 2017-10-18 12:46 | disposition home or self-care (01) ==
LOC: ED 09:28
DX: N39.0 Urinary tract infection, site not specified (principal); M54.9 Dorsalgia, unspecified; K59.00 Constipation, unspecified; R11.2 Nausea with vomiting, unspecified; R30.0 Dysuria
CPT/HCPCS: 36415; 74176; 80053; 81003; 81015; 83605; 83690; 84702; 85025; 86140; 87086; 96374; 99283; J0692; J0744; J1885; J2405

== ENCOUNTER → 2018-06-13 10:24 | Emergency (ER) | payer MEDICARE, MEDICAID ==
--- OUTSIDE RECORDS SUMMARY | 2018-06-13 10:36 | XMS REPORT | Continuity of Care Document ---
:1970 External Reference #:[id number] Author Name Alina Haddad Care Team Providers Name Role Phone Alberto Gomez MD Primary Care Physician Unavailable Payers Date Identification Numbers Payment Provider Subscriber Policy Number: [id number] Medicare Jennifer Mcnamara PayID: [id number] [address] [place] [address] Policy Number: [id number] Medicaid Jennifer Mcnamara Group Name: 1 1 [address] PayID: [id number] [place] [address] Advance Directives Description No Information Available Problems Date Description Provider Status Onset: 06/09/2011 Benign essential hypertension Cliff Lloyd M.D. Onset: 06/09/2011 Chest pain Cliff Lloyd M.D. Onset: 06/09/2011 Hyperlipidemia Cliff Lloyd M.D. Onset: 06/09/2011 Tachycardia Cliff Lloyd M.D. Onset: 06/09/2011 Electrocardiogram abnormal Cliff Lloyd M.D. Onset: 04/18/2015 Mixed hyperlipidemia Kaleb Langley M.D. Active Onset: 04/18/2015 Obesity Kaleb Langley M.D. Active Onset: 04/18/2015 Abnormal results of Kaleb Langley M.D. Active cardiovascular function studies Onset: 04/18/2015 Type 2 diabetes mellitus with Kaleb Langley M.D. Active diabetic polyneuropathy Onset: 01/07/2017 Hypersomnia Katie Knapp DNP, RN, Active ENVIRONMENTAL HEALTH SAFETY ENGINEER-BC Onset: 01/07/2017 Obstructive sleep apnea syndrome Katie Knapp DNP, RN, Resolved ENVIRONMENTAL HEALTH SAFETY ENGINEER-BC Resolved: 03/11/2017 Family History Date Family Member(s) Observation Comments Father due to Cancer, Lung () Father due to Heart Disease () Father due to OR () - age 68 yrs Mother Pacemaker Mother Diabetes Type II Siblings 3 a brother- stents, specifics unknown Paternal Grandmother due to OR () - age 90 yrs Maternal Grandfather due to OR () - age 64 yrs Maternal Grandmother due to OR () - age 69 yrs Maternal Grandmother due to Diabetes () Maternal Grandmother due to Cancer, Breast () Social History Type Date Description Comments Sex Unknown Marital Status Single Lives With Mother Occupation Disabled Tobacco Use Start: Unknown Never Smoked Cigarettes Smoking Status Reviewed: 06/07/18 Never Smoked Cigarettes ETOH Use 2010 Denies alcohol use Recovered alcoholic, quit 2010 Tobacco Use Start: Unknown Patient has never smoked Recreational Drug Use Denies Drug Use Exercise Type/Frequency Exercises regularly Exercise Type/Frequency Walks daily Avg 5,000 steps per day Allergies, Adverse Reactions, Alerts Date Description Reaction Status Severity Comments 04/16/2015 Metformin Active vomiting 12/24/2006 NKDA Inactive Medications Medication Date Status Form Strength Qnty SIG Indications Ordering Provider Flomax 06/07 Active Capsules 0.4mg 14cap Take one R10.11 Padilla s tablet by MD [place] mouth daily Toujeo Max 04/20 Active Solution 300Unit/M 9ml 65 units E11.8 Padilla ost Pen-Inject L daily MD [place] Pen [place] 04/20 Active Misc 31G X 5 100un use one E11.8 Padilla mm its needle MD [place] daily with insulin pen Pioglitazone HCL 04/20 Active Tablets 15mg 90tab take 15mg E11.8 Padilla s once daily MD [place] BP Cuff 12/30 Active 1unit use as Qutayb s dandre Figueroa M.D. Lisinopril/Killen Active Tablets 20-25mg 30tab 1 po qd Unknown chlorothiazide /0000 s Albuterol Active Nebulizer (2.5mg/3M 50uni 1 vial via Unknown Sulfate /0000 L) 0.083% ts nebulizer q4-6hrs prn Qvar Active Aerosol 80mcg/Act 3unit 2 puff / s twice daily Pristiq ER Active Tablets ER 100mg 90tab 1 po qd 24HR s Aripiprazole Active Tablets 10mg 1 by mouth Unknown / every day Atorvastatin Active Tablets 40mg 1 by mouth Unknown Calcium / every day Furosemide Active Tablets 40mg 1 by mouth Unknown / bid Lyrica Active Capsules 150mg 1 by mouth Unknown three times daily Meloxicam Active Tablets 7.5mg take 1 tab Unknown by mouth bid Metoprolol Active Tablets 25mg 1 by mouth Unknown Tartrate / daily Trulicity Active Solution 1.5mg/0.5 once a week Pen-Inject ML Desvenlafaxine Active Tablets ER 100mg Take One Unknown Succinate ER 24HR Tablet By Mouth Every Morning Topiramate Active Tablets 100mg Take One Unknown 0000 Tablet By Mouth Twice A Day Pen [place] Active Misc 31G X 8 use with mm insulin pens 4 times daily. Trazodone HCL Active Tablets 100mg 1 every Unknown / night at bedtime Cardizem CD 12/24 Hx Caps ER 120mg 30cap 1 po qd 24HR s Bradly Figueroa 04/15 MIndra /2014 Cardizem 07/26 Hx Tablets 120mg 30tab 1 po qam s Bradly Figueroa 12/24 , M.DToby /2010 Cymbalta 02/[address] KNAPP 30mg po qd Qutayb SToby Figueroa 05/13 M.DToby /2010 Wellbutrin 12/24 Hx Tablets 75mg 90tab 1 PO bid yb s Bradly Penningtonah 02/18 , M.DToby /2006 Benadryl 12/24 Hx Capsules 25mg 4 PO at hs SToby Figueroa 05/13 M.Chace /2010 Caffeine OTC 12/24 Hx Tablets 2 tablets in am [facility] 05/13 , M.D. Toprol XL 12/24 Hx Tablets ER 25mg 30tab 1 po [facility]. Lopressor 12/24 Hx Tablets 25mg 30tab 1 po qd s [facility] 05/13 , M.D. Lexapro 06/09 Hx Tablets 10mg 30tab 1 PO qd s [facility] 12/24 , M.D. Albuterol 06/09 Hx Aerosol 90mcg/Dos 2 Puffs qid tayb e prn [facility] 08/21 , M.D. Cymbalta Hx Caps DR 60mg 1 tab in Unknown /0000 Part the am 1 - tab in the 06/08 pm Metformin HCL ER Hx Tablets ER 750mg 90tab 1 po qd Unknown /0000 24HR s - 04/15 Singulair Hx Tablets 10mg 90tab 1 po qd Unknown /0000 s - 07/08 Advair Diskus Hx Aerosol 250-50mcg 1unit 1 puff po Unknown /0000 /Dose s qd - 08/21 Humalog 00/00 Hx Solution 100Unit/M 1unit 15 u after Unknown /0000 L s each meal - 06/08 Humulin R U-500 0000 Hx Solution 500Unit/M 16 rivas in Unknown (Concentrated) /0000 L am, 16 - rivas in pm 06/08 Prazosin HCL 0000 Hx Capsules 1mg 1 po bid Unknown /0000 - 06/08 Topiramate Hx Tablets 25mg 120ta 1 po bid Unknown /0000 bs - 06/08 Omeprazole 00/ Hx Capsules DR 20mg 90cap 1 po qd Unknown /0000 s - 04/15 Flonase 00/ Hx Suspension 50mcg/Act 1unit 1 Unknown /0000 s intranasal - puff to 07/13 nostril daily Cymbalta 00/[address] 30mg 1 po bid Unknown /0000 Part - 05/16 Novolog Flexpen 0000 Hx Solution 70/30 15uni 120 units Unknown /0000 ts before - before 05/09 breakfast 120 unit before dinner Novolog Mix 00 Hx Suspension 70-30% 5unit 75 units Unknown 70/30 /0000 s bid - 04/19 Naproxen Sodium Hx Tablets 500mg 60tab 1 po tid Unknown /0000 s prn takes - everyday 01/07 Neurontin Hx Capsules 400mg 1 po bid Unknown /0000 - 04/15 Flexeril Hx Tablets 10mg 60tab 1 po qid Unknown /0000 s - 01/07 Norvasc Hx Tablets 5mg 1 by mouth Unknown /0000 every day - 01/07 Gemfibrozil Hx Tablets 600mg 1 by mouth Unknown /0000 daily - 05/16 Lisinopril-Killen Hx Tablets 20-25mg [place], chlorothiazide / Ignacio Dominguez MD 04/04 Immunizations Description No Information Available Vital Signs Date Vital Result Comment 06/07/2018 8:48am Height 67 inches 5'7" Weight 276.00 lb w/ shoes Heart Rate 80 /min BP Systolic Sitting 165 mmHg BP Diastolic Sitting 90 mmHg BMI (Body Mass Index) 43.2 kg/m2 05/12/2018 8:36am Height 67 inches 5'7" Weight 266.00 lb w/shoes Heart Rate 94 /min BP Systolic Sitting 137 mmHg BP Diastolic Sitting 85 mmHg BMI (Body Mass Index) 41.7 kg/m2 04/20/2018 9:44am Height 67 inches 5'7" Weight 278.00 lb w/ shoes Heart Rate 92 /min BP Systolic Sitting 142 mmHg BP Diastolic Sitting 91 mmHg BMI (Body Mass Index) 43.5 kg/m2 03/17/2017 2:23pm Height 67 inches 5'7" Weight 252.00 lb Heart Rate 80 /min BP Systolic 122 mmHg BP Diastolic 82 mmHg Respiratory Rate 14 /min BMI (Body Mass Index) 39.5 kg/m2 03/11/2017 10:44am Height 67 inches 5'7" Weight 255.00 lb with shoes Heart Rate 106 /min BP Systolic Sitting 116 mmHg Lue large cuff BP Diastolic Sitting 86 mmHg Lue large cuff Respiratory Rate 16 /min O2 % BldC Oximetry 97 % On Ra BMI (Body Mass Index) 39.9 kg/m2 01/07/2017 2:49pm Height 67 inches 5'7" Weight 255.00 lb with shoes Heart Rate 90 /min BP Systolic Sitting 106 mmHg BP Diastolic Sitting 64 mmHg Respiratory Rate 18 /min O2 % BldC Oximetry 98 % On Ra BMI (Body Mass Index) 39.9 kg/m2 Neck Circumference in inches 16 05/18/2015 2:46pm Height 67 inches 5'7" Weight 275.00 lb Heart Rate 88 /min BP Systolic Sitting 124 mmHg LA< large BP Diastolic Sitting 78 mmHg LA< large BMI (Body Mass Index) 43.1 kg/m2 Ejection Fraction 55%-60% 05/11/15 04/16/2015 10:35am Height 67 inches 5'7" Weight 256.75 lb with shoes Heart Rate 110 /min BP Systolic Sitting 110 mmHg LA lg cuff BP Diastolic Sitting 80 mmHg LA lg cuff BMI (Body Mass Index) 40.2 kg/m2 Ejection Fraction 56-58 Nem 04/11/15 07/14/2011 8:14am Height 67 inches 5'7" Weight 273.00 lb Heart Rate 62 /min BP Systolic 132 mmHg BP Diastolic 76 mmHg BMI (Body Mass Index) 42.8 kg/m2 06/09/2011 8:33am Height 67 inches 5'7" Weight 274.00 lb Heart Rate 82 /min BP Systolic Sitting 140 mmHg BP Diastolic Sitting 102 mmHg BMI (Body Mass Index) 42.9 kg/m2 07/26/2010 1:11pm Height 67 inches 5'7" Weight 281.00 lb Heart Rate 110 /min BP Systolic 122 mmHg BP Diastolic 80 mmHg Respiratory Rate 16 /min BMI (Body Mass Index) 44.0 kg/m2 07/08/2010 9:00am Height 67 inches 5'7" Weight 288.50 lb BP Systolic Sitting 140 mmHg r BP Diastolic Sitting 88 mmHg r BMI (Body Mass Index) 45.2 kg/m2 05/13/2010 10:08am Height 58 inches 4'10" Weight 280.00 lb Heart Rate 102 /min BP Systolic 122 mmHg BP Diastolic 80 mmHg BP Systolic Sitting 120 mmHg BP Diastolic Sitting 80 mmHg BP Systolic Standing 130 mmHg BP Diastolic Standing 82 mmHg Respiratory Rate 18 /min BMI (Body Mass Index) 58.5 kg/m2 02/18/2007 1:33pm Height 58 inches 4'10" Weight 304.00 lb Heart Rate 80 /min BP Systolic Sitting 142 mmHg L BP Diastolic Sitting 84 mmHg L BMI (Body Mass Index) 63.5 kg/m2 12/24/2006 2:04pm Height 58 inches 4'10" Weight 304.00 lb Heart Rate 91 /min BP Systolic Sitting 130 mmHg BP Diastolic Sitting 92 mmHg BP Systolic Standing 130 mmHg BP Diastolic Standing 92 mmHg BP Systolic Lying Down 140 mmHg BP Diastolic Lying Down 90 mmHg Respiratory Rate 16 /min BMI (Body Mass Index) 63.5 kg/m2 Results Test Date Facility Test Result H/L Range Note Laboratory test finding 06/07/2018 [facility] Glucose Random 227 Laboratory test finding 05/12/2018 [facility] Glucose Random 239 Laboratory test finding 04/20/2018 [facility] Glucose Random 337 Hemoglobin A1c 13.2 High 5-7 Ketones 0.4 CBC Auto Diff 05/08/2015 [facility] White Blood 8.6 10^3/uL N 3.5-10.[address] [place] [address] [phone] Red Blood Count 4.58 10^6/uL N 4.0-5.4 Hemoglobin 13.3 g/dL N 12.0-16.0 Hematocrit 40 % N 35-47 Mean Corpuscular Volume 86 fL N 80-97 Mean Corpuscular Hemoglobin 29 pg N 27-31 Mean Corpuscular HGB Conc 34 g/dL N 31-36 Red Cell Distribution Width 16 % High 10.5-15 Platelet Count 292 10^3/uL N 150-450 Mean Platelet Volume 8 um3 N 7.4-10.4 Abs Neutrophils 5.8 10^3/uL N 1.5-7.7 Abs Lymphocytes 2.2 10^3/uL N 1.0-4.8 Abs Monocytes 0.4 10^3/uL N 0-0.8 Abs Eosinophils 0.1 10^3/uL N 0-0.6 Abs Basophils 0 10^3/uL N 0-0.2 Abs Nucleated RBC 0 10^3/uL N Granulocyte % 67.6 % N 38-83 Lymphocyte % 25.8 % N 25-47 Monocyte % 4.9 % N 1-9 Eosinophil % 1.2 % N 0-6 Basophil % 0.5 % N 0-2 Nucleated Red Blood Cells % 0 N Inr/Protime 05/08/2015 [facility] Inr 0.97 N 0.89-1.[address] [place] [address] [phone] Laboratory test 05/08/2015 [facility] Partial 33.3 seconds N 26.0-36.[address] [place] [address] PTT [phone] Basic Metabolic 05/08/2015 [facility] Sodium 133 mmol/L N 133- [address] [place] [address] [phone] Potassium 4.2 mmol/L N 3.5-5.0 Chloride 100 mmol/L Low 101-111 Co2 Carbon Dioxide 27 mmol/L N 22-32 Anion Gap 6 mmol/L N 2-11 Glucose 269 mg/dL High 70-100 Blood Urea Nitrogen 7 mg/dL N 6-24 Creatinine 0.48 mg/dL Low 0.51-0.95 BUN/Creatinine Ratio 14.6 N 8-20 Calcium 9.3 mg/dL N 8.6-10.3 Egfr Non- 139.2 N >60 Egfr 179.1 N >60 1 1 Because ethnic data is not always readily available, this report includes an eGFR for both -Americans and non- Americans. The National Kidney Disease Education Program (NKDEP) does not endorse the use of the MDRD equation for patients that are not between the ages of 18 and 70, are , have extremes of body size, muscle mass, or nutritional status, or are non- or non-. According to the National Kidney Foundation, irrespective of diagnosis, the stage of the disease is based on the level of kidney function: Stage Description GFR(mL/min/1.73 m(2)) 1 Kidney damage with normal or decreased GFR 90 2 Kidney damage with mild decrease in GFR 60-89 3 Moderate decrease in GFR 30-59 4 Severe decrease in GFR 15-29 5 Kidney failure <15 (or dialysis) Procedures Date Code Description Status 01/14/2017 92892 Polysomnography Sleep Staging 4+ Parameters Completed 05/16/2015 24342 Left Heart Cath. Incl S/I Coronaries, Angio S/I V Gram If Completed Done 05/11/2015 60839 ECHO Transthoracic, Real-Time 2D With Doppler And Color Completed Flow 04/16/2015 65704 EKG Tracing & Interpretation Completed 04/11/2015 32058 EKG, Interpretation Only Completed 04/10/2015 64542 Treadmill Interp/Report Only Completed 04/10/2015 72700 Stress Test Supervsn W/Out I/R Completed 06/09/2011 96507 EKG Tracing & Interpretation Completed 07/23/2010 05081 Left Heart Cath. Incl S/I Coronaries, Angio S/I V Gram If Completed Done 07/23/2010 01375 Cath PLMT&NJX L Ventriculog Img S&I Completed 07/23/2010 97684 EKG, Interpretation Only Completed 06/13/2010 44719 Treadmill Interp/Report Only Completed 06/13/2010 19715 Stress Test Supervsn W/Out I/R Completed 06/06/2010 58141 ECHO Transthoracic, Real-Time 2D With Doppler And Color Completed Flow 06/05/2010 14466 Holter Monitoring 24 HR New Completed 06/05/2010 39933 Holter Monitor Completed 05/13/2010 02829 EKG Tracing & Interpretation Completed 02/11/2007 70647 ECHO/Stress Completed 02/11/2007 99247 Stress Test Completed 02/11/2007 27503 Stress Test Completed 01/06/2007 77763 Color Doppler Completed 01/06/2007 76555 Color Doppler Completed 01/06/2007 47249 Color Doppler Completed 01/06/2007 23166 Pulse Doppler & Continuous Wave Completed 01/06/2007 99211 Pulse Doppler & Continuous Wave Completed 01/06/2007 17612 Echocardiogram Completed 01/06/2007 48117 Echocardiogram Completed 01/06/2007 93476 Echocardiogram Completed 12/24/2006 52295 EKG Tracing & Interpretation Completed 12/24/2006 29236 EKG Tracing & Interpretation Completed Encounters Type Date Location Provider Dx Diagnosis Office Visit 05/12/2018 [facility]ra [facility] Milagros Jameson, E11.8 Type 2 diabetes 9:20a [facility]ocrinology of [facility] RPA-C mellitus with unspecified complications 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 Z68.41 Body mass index (BMI) 40.0-44.9, adult Office Visit 04/20/2018 [facility] Padilla Coch, Z79.84 senior living 10:00a Endocrinology of (current) use of [facility] oral hypoglycemic drugs E11.8 Type 2 diabetes mellitus with unspecified complications F39 Unspecified mood [affective] disorder Office Visit 03/17/2017 2:00p [facility] Marvel Abdullahi R42 Dizziness and Services [facility] Tano Alonzoddiness Office Visit 03/11/2017 11:00a Pulmonology And Katie R06.83 Snoring [facility] Of YOGESH Knapp, RN, [facility] R40.0 Somnolence Office Visit 01/07/2017 [facility] Katie G47.33 Obstructive sleep 3:00p [facility] OYGESH Knapp RN, apnea (adult) [facility] MAXIMUS-NEETA (pediatric) G47.14 Hypersomnia due to medical condition Z68.39 Body mass index (BMI) 39.0-39.9, adult Office 12/16/2016 [facility] Howard T50.901A Poisoning by unsp Visit 7:23a Assoc,ARIA Echevarria drug/meds/biol Hospitalists subst, accidental, init E11.8 Type 2 diabetes mellitus with unspecified complications G62.9 Polyneuropathy, unspecified F32.9 Major depressive disorder, single episode, unspecified Office Visit 12/15/2016 Neurohospitalist Nader R41.82 Altered mental 11:23a Clinic MD Alexys status, unspecified R26.81 Unsteadiness on feet Office 12/15/2016 [facility] Kai T50.901A Poisoning by unsp Visit 7:22a Assoc,joaquín Pierre, N.P. drug/meds/biol Hospitalists subst, accidental, init G62.9 Polyneuropathy, unspecified E11.8 Type 2 diabetes mellitus with unspecified complications F32.9 Major depressive disorder, single episode, unspecified Office Visit 09/09/2016 9:04a Neurohospitalist Paige Valdes [facility] Tano cruz I10 Essential (primary) hypertension E11.42 Type 2 diabetes mellitus with diabetic polyneuropathy G47.30 Sleep apnea, unspecified Office Visit 09/09/2016 9:36a [facility] Dulce Maria José, R42 Dizziness and Assoc,pc Ervin cruz Hospitalists E78.5 Hyperlipidemia, unspecified E11.69 Type 2 diabetes mellitus with other specified complication I10 Essential (primary) hypertension Office Visit 09/08/2016 9:35a [facility] Renetta Kwok R42 Dizziness and Assoc,pc ALEXIS Mcclure Hospitalists E11.69 Type 2 diabetes mellitus with other specified complication E78.5 Hyperlipidemia, unspecified I10 Essential (primary) hypertension Office Visit 09/08/2016 9:03a Neurohospitalist Mary Alice Dubrin, R42 [facility] Tano cruz I10 Essential (primary) hypertension E11.42 Type 2 diabetes mellitus with diabetic polyneuropathy G47.30 Sleep apnea, unspecified Office Visit 05/18/2015 3:00p [facility] Qutaybeh S. I10 Essential Tano Figueroa (primary) hypertension E66.9 Obesity, unspecified E11.42 Type 2 diabetes mellitus with diabetic polyneuropathy I25.10 Athscl heart disease of [place] coronary artery w/o ang pctrs Office Visit 04/16/2015 11:20a [facility] Qutaybeh S. R07.9 Chest pain, Cardiology Tano Figueroa unspecified E11.42 Type 2 diabetes mellitus with diabetic polyneuropathy E78.2 Mixed hyperlipidemia I10 Essential (primary) hypertension E66.9 Obesity, unspecified R06.02 Shortness of breath R94.39 Abnormal result of other cardiovascular function study Office Visit 04/11/2015 11:32a [facility] Arlyn R07.2 Precordial pain Assoc,pc ALEXIS Reyes Hospitalists E11.42 Type 2 diabetes mellitus with diabetic polyneuropathy E78.2 Mixed hyperlipidemia I10 Essential (primary) hypertension Office Visit 04/09/2015 11:30a [facility] Michael R07.2 Precordial pain Assoc,pc MD Bennett Hospitalists E11.42 Type 2 diabetes mellitus with diabetic polyneuropathy E78.2 Mixed hyperlipidemia I10 Essential (primary) hypertension Office Visit 07/20/2013 3:35p [facility] Colten Cole, 682.6 Cellulitis & Assoc,joaquín Freedman Abscess Leg Hospitalists Except Foot 250.02 Diabetes Mellitus W/O Compl Type II Or Unspec Type Uncontrol 401.9 Hypertension Unspec Office Visit 07/19/2013 3:34p [facility] Marvel Cloud 682.6 Cellulitis & Assoc,joaquín Chan Abscess Leg Hospitalists Tano Except Foot 250.02 Diabetes Mellitus W/O Compl Type II Or Unspec Type Uncontrol 401.9 Hypertension Unspec Office Visit 07/18/2013 3:34p [facility] Marvel Cloud 682.6 Cellulitis & Assoc,joaquín Chan Abscess Leg Hospitalists Tano Except Foot 250.02 Diabetes Mellitus W/O Compl Type II Or Unspec Type Uncontrol 401.9 Hypertension Unspec Office 05/25/2012 [facility] Eliezer Frankenberg 250.62 Diabetes W/ Visit 12:35p Assoc,joaquín NASH M.D. Neurological Hospitalists Manifestations Type II Uncontrolled 300.9 Nonpsychotic Disorders NOS Office Visit 07/14/2011 [facility] Mary Alice Pineda, 401.1 Hypertension 9:00a Cardiology N.P. Benign 785.0 Tachycardia Unspec Office Visit 06/09/2011 [facility] Rika S. 401.1 Hypertension 9:00a Cardiology BETSY Figueroa M.D. Benign [facility] 786.50 Pain Chest Unspec 272.4 Hyperlipidemia Other Unspec 785.0 Tachycardia Unspec 794.31 Electrocardiogram (ECG) (EKG) Abnormal Office Visit 08/21/2010 8:15a [facility] Nurse Visit cc 401.1 Hypertension Cardiology Benign Office Visit 07/26/2010 1:20p [facility] Rika S. 786.50 Pain Chest Unspec Cardiology Tano Figueroa 401.1 Hypertension Benign 272.4 Hyperlipidemia Other Unspec 785.0 Tachycardia Unspec Office 07/23/2010 [facility] Rika S. 794.31 Electrocardiogram Visit 9:30a Cardiology Tano Figueroa (ECG) (EKG) Abnormal 786.50 Pain Chest Unspec 401.1 Hypertension Benign 250.00 Diabetes Mellitus W/O Compl Type II Or Unspec Controlled 272.4 Hyperlipidemia Other Unspec Office Visit 07/08/2010 9:20a [facility] Rika S. 786.50 Pain Chest Tano Figueroa Unspec 401.1 Hypertension Benign 272.4 Hyperlipidemia Other Unspec 794.31 Electrocardiogram (ECG) (EKG) Abnormal 786.05 Shortness Of Breath 250.02 Diabetes Mellitus W/O Compl Type II Or Unspec Type Uncontrol Office 06/13/2010 [facility] Qutaybeh S. 794.31 Electrocardiogram Visit 8:30a Cardiology Tano Figueroa (ECG) (EKG) Abnormal 401.1 Hypertension Benign 272.4 Hyperlipidemia Other Unspec 786.50 Pain Chest Unspec Office Visit 05/13/2010 10:20a [facility] Rika S. 250.02 Diabetes Tano Figueroa Mellitus W/O Compl Type II Or Unspec Type Uncontrol 401.9 Hypertension Unspec 786.50 Pain Chest Unspec 786.05 Shortness Of Breath 272.4 Hyperlipidemia Other Unspec 785.0 Tachycardia Unspec 785.1 Palpitations Office Visit 02/21/2009 12:45a [facility] 303.91 Alcohol Assjoaquín yo M.D. Dependence Hospitalists Continuous Other & Unspec Office Visit 02/20/2009 1:15a [facility] 303.91 Alcohol joaquín Deshpande M.D. [facility] Hospitalists Continuous Other & Unspec Office Visit 02/19/2009 12:30a [facility] 303.91 Alcohol Assjoaquín yo M.D. [facility] Hospitalists Continuous Other & Unspec 250.02 Diabetes Mellitus W/O Compl Type II Or Unspec Type Uncontrol 401.9 Hypertension Unspec Office Visit 12/19/2008 12:30a [facility] DrakeToby 303.91 Alcohol Assjoaquín oy M.D. [facility] Hospitalists Continuous Other & Unspec [facility] Alcohol Assjoaquín yo M.D. [facility] Hospitalists Continuous Other & Unspec Office Visit 12/17/2008 12:15a [facility] 303.91 Alcohol Assjoaquín yo M.D. [facility] Hospitalists Continuous Other & Unspec 305.20 Cannabis Abuse Unspec Office Visit 12/16/2008 12:15a [facility] 303.91 Alcohol Assjoaquín yo M.D. [facility] Hospital[facility] Continuous Other & Unspec 305.20 Cannabis Abuse Unspec Office Visit 02/18/2007 1:20p [facility] Rika S. 786.05 Shortness Of Tano Figueroa Breath 401.0 Hypertension Malignant 278.0 Obesity 250.00 Diabetes Mellitus W/O Compl Type II Or Unspec Controlled Office Visit 12/24/2006 [facility] Madhavitiffanyjeanette HaileToby 401.0 Hypertension 2:20p Cardiology Tano Figueroa Malignant 786.50 Pain Chest Unspec 786.05 Shortness Of Breath 278.0 Obesity Plan of Treatment Future Appointment(s):08/06/2018 9:00 am - CIRO Orellana [facility]06/07/2018 - MARY CARMEN OrellanaCE11.8 Type 2 diabetes mellitus with unspecified complicationsFollow up:2 month appointmentRecommendations:- Increase Toujeo to 80 units once daily. + Increase by 8 units every 4 days until morning bloodsugars are less than 140 mg/ dL consistently. - Call your primary care doctor about your back pain. -Follow up in two months or sooner if you have low blood sugars or are concerned about your blood plkxyyS15.11 Right upper quadrant painNew Medication:Flomax 0.4 mg - Take one tablet by mouth daily
[2018-06-13 12:48] VITALS: BP 168/102
[2018-06-13 14:58] LABS: ABS Basophils 0 10^3/ul (0-0.2); ABS Eosinophils 0.1 10^3/ul (0-0.6); ABS Lymphocytes 2.4 10^3/ul (1.0-4.8); ABS Monocytes 0.4 10^3/ul (0-0.8); ABS Neutrophils 6.2 10^3/ul (1.5-7.7); ABS Nucleated RBC 0 10^3/ul; Eosinophil % 1.6 %; Hematocrit 41 % (33-41); Hemoglobin 13.8 g/dL (12.0-16.0); Lymphocyte % 25.8 %; Mean Corpuscular HGB Conc 34 g/dL (31-36); Mean Corpuscular Hemoglobin 30 pg (27-31); Mean Corpuscular Volume 88 fL (80-97); Mean Platelet Volume 8.5 fL (7.4-10.4); Nucleated Red Blood Cells % 0.1; Platelet Count 275 10^3/uL (150-450); Red Blood Count 4.66 10^6 /uL (3.70-4.87); Red Cell Distribution Width 14 % (10.5-15); White Blood Count 9.1 10^3/uL (3.5-10.8)
[2018-06-13 15:06] LABS: Activated Partial Thrombo Time 33.3 seconds (26.0-36.3); INR 0.92 (0.77-1.02)
[2018-06-13 15:18] LABS: Albumin/Globulin Ratio 1.2 (1-3); Calcium 9.1 mg/dL (8.6-10.3); EGFR African American 158.7 (>60); EGFR Non-African American 131.1 (>60); Globulin 3.3 g/dL (2-4); Potassium 3.9 mmol/L (3.5-5.0); Total Bilirubin 0.4 mg/dL (0.2-1.0); Total Protein 7.3 g/dL (6.4-8.9)
== END | disposition home or self-care (01) ==
LOC: ED 10:24
DX: N20.0 Calculus of kidney (principal); Z53.21 Procedure and treatment not carried out due to patient leaving prior to being seen by health care provider
CPT/HCPCS: 36415; 74176; 80053; 85025; 85610; 85730; 99282

== ENCOUNTER 2018-12-02 07:30 | Emergency (ER) | payer MEDICARE, MEDICAID ==
--- NOTE | 2018-12-02 07:41 | ED ---
Abdominal Pain/Female - HPI Summary HPI Summary: Patient is a 48-year-old female who presents emergency department for left lower abdominal pain 1-2 weeks. Pain is worse with movement but is constant. Associated symptoms of nausea and vomiting. Denies fever, chest pain, shortness of breath, diarrhea, constipation, urinary symptoms. Past medical history of obesity, diabetes, hypertension. Symptoms are moderate in severity. - History of Current Complaint Chief Complaint: EDAbdPain Stated Complaint: ABD PAIN PER PT Time Seen by Provider: 12/02/18 07:38 Hx Obtained From: Patient Pain Intensity: 7 Allergies/Adverse Reactions: Allergies Allergy/AdvReac Type Severity Reaction Status Date / Time metformin Allergy Unknown Verified 12/02/18 07:31 Reaction Details Home Medications: Home Medications Albuterol HFA INHALER* [Ventolin HFA Inhaler*] 3 ml INH Q4H PRN 12/02/18 [ History Confirmed 12/02/18] Metoprolol Tartrate TAB* [Lopressor TAB*] 50 mg PO BID 12/02/18 [History Confirmed 12/02/18] Metoprolol Tartrate TAB* [Lopressor TAB*] 100 mg PO BID 12/02/18 [History Confirmed 12/02/18] Pioglitazone TAB* [Actos TAB*] 30 mg PO DAILY 12/02/18 [History Confirmed ] PMH/Surg Hx/FS Hx/Imm Hx Previously Healthy: Yes Endocrine/Hematology History: Reports: Hx Diabetes - DM II, Hx Anemia Denies: Hx Anticoagulant Therapy, Hx Blood Disorders, Hx Unexplained Bleeding , Other Endocrine/Hematological Disorders Cardiovascular History: Reports: Hx Angina, Hx Hypercholesterolemia, Hx Hypertension Denies: Hx Cardiac Arrest, Hx Embolism, Hx Pacemaker/ICD, Other Cardiovascular Problems/Disorders Respiratory History: Reports: Hx Asthma, Hx Chronic Obstructive Pulmonary Disease (COPD), Other Respiratory Problems/Disorders - SLEEP APNEA Denies: Hx Sleep Apnea - Pt reports no longer "after I lost a bunch of weight " GI History: Reports: Hx Gastroesophageal Reflux Disease Denies: Other GI Disorders History: Denies: Hx Kidney Stones, Other Problems/Disorders Musculoskeletal History: Reports: Hx Arthritis - Bilateral knees, Hx Back Problems Comment Only: Other Musculoskeletal History - Neuropathy Sensory History: Reports: Hx Contacts or Glasses - Pt in possession of, Hx Vision Problem Denies: Hx Cataracts, Hx Eye Injury, Hx Eye Prosthesis, Hx Glaucoma, Hx Macular Degeneration, Hx Deafness, Hx Hearing Aid, Other Sensory Impairments Opthamlomology History: Reports: Hx Contacts or Glasses - Pt in possession of, Hx Vision Problem Denies: Hx Cataracts, Hx Eye Injury, Hx Eye Prosthesis, Hx Glaucoma, Hx Macular Degeneration, Other Sensory Impairments Neurological History: Reports: Hx Developmental Delay, Hx Headaches - "only when I don't eat", Hx Migraine, Other Neuro Impairments/Disorders - diabetic neuropathy Denies: Hx Dementia Psychiatric History: Reports: Hx Anxiety, Hx Eating Disorder, Hx Depression, Hx Panic Disorder, Hx Post Traumatic Stress Disorder, Hx Inpatient Treatment, Hx Community Mental Health Tx, Hx Suicide Attempt, Hx of Violent Episodes Against Others, Hx Substance Abuse, Other Psychiatric Issues/Disorders - borderline personality disorder Denies: Hx Schizophrenia - Surgical History Surgery Procedure, Year, and Place: tubal ligation Hx Anesthesia Reactions: No Infectious Disease History: No Infectious Disease History: Denies: Hx Clostridium Difficile, Hx Hepatitis, Hx Human Immunodeficiency Virus (HIV), Hx Shingles, Hx Tuberculosis, Traveled Outside the [place] in Last 30 Days - Family History Known Family History: Positive: Hypertension, Diabetes, Other - Lung CA - Social History Occupation: Unemployed Lives: With Family Alcohol Use: None Hx Substance Use: No Substance Use Type: Reports: None Hx Tobacco Use: No Smoking Status (MU): Never Smoked Tobacco Have You Smoked in the Last Year: No Review of Systems Constitutional: Negative Negative: Fever, Chills Cardiovascular: Negative Respiratory: Negative Positive: Abdominal Pain, Vomiting, Nausea. Negative: Diarrhea Genitourinary: Negative Negative: dysuria, flank pain All Other Systems Reviewed And Are Negative: Yes Physical Exam Triage Information Reviewed: Yes Vital Signs On Initial Exam: Initial Vitals Temp Pulse Resp BP Pulse Ox 97.0 F 133 20 123/95 94 12/02/18 07:31 12/02/18 07:31 12/02/18 07:31 12/02/18 07:31 12/02/18 07:31 Vital Signs Reviewed: Yes Appearance: Positive: Well-Appearing - Pt. sitting up in bed in NAD. Obese. Skin: Positive: Warm, Dry Head/Face: Positive: Normal Head/Face Inspection Eyes: Positive: Normal, EOMI Neck: Positive: Supple Respiratory/Lung Sounds: Positive: Clear to Auscultation, Breath Sounds Present Cardiovascular: Positive: Normal, RRR Abdomen Description: Positive: Other: - Morbidly obese. Abd. is soft with tenderness and guarding to LLQ.. Negative: CVA Tenderness (R), CVA Tenderness ( L) Musculoskeletal: Positive: Normal, Strength/ROM Intact Neurological: Positive: Normal, CN Intact II-III Psychiatric: Positive: Affect/Mood Appropriate Diagnostics - Vital Signs Vital Signs Temp Pulse Resp BP Pulse Ox 12/02/18 07:31 97.0 F 133 20 123/95 94 - Laboratory Result Diagrams: 12/02/18 08:02 12/02/18 08:02 Lab Statement: Any lab studies that have been ordered have been reviewed, and results considered in the medical decision making process. Abdominal Pain Fem Course/Dx - Course Course Of Treatment: Pt. presenting with ongoing lower abd. pain. Pt. given a dose of toradol and zofran. Afebrile. HR mildy tachy. ECG done at 0820 shows a sinus tachycardia of 106bpm, normal axis, no STEMI. . CT abd.pelvis per radiology: IMPRESSION: 1. NO CLEAR ETIOLOGY FOR LEFT LOWER QUADRANT PAIN. 2. UNCHANGED NONOBSTRUCTIVE 6 MM CALCULUS IN THE LOWER POLE THE RIGHT KIDNEY. CBC shows normal WBC. Na 131, glucose 392, alk phos 111, CRP 18. U/A shows RBCs without signs of infection. Unclear of pain etiology. On re-exam pt. tolerating POs and is feeling slightly better. Results discussed. Will dc home to [facility] with her PCP and endo. to discuss glucose control. To return to ER If sxs change or worsen. Pt. understands and agrees with plan. - Diagnoses Differential Diagnosis: Positive: Appendicitis, Bowel Obstruction, Constipation Provider Diagnoses: Abdominal pain, Hyperglycemia Discharge ED - Sign-Out/Discharge Documenting (check all that apply): Patient Departure Patient Received Moderate/Deep Sedation with Procedure: No - Discharge Plan Condition: Improved Disposition: HOME Patient Education Materials: Acute Abdominal Pain (ED), Diabetic Hyperglycemia (ED) Referrals: Alberto Gomez MD [Primary Care Provider] - Additional Instructions: Schedule an appointment with your PCP within 1-2 days for recheck of your high blood sugar and abdominal pain Continue daily medications as scheduled Return to ER if symptoms change or worsen - Billing Disposition and Condition Condition: IMPROVED Disposition: Home
[2018-12-02] MEDS ORDERED: Ondansetron ODT TAB* 4 MG PO ONE (07:55)
[2018-12-02] MEDS ORDERED: NS 0.9% 1000 ML** 1,000 ML IV ONE (07:55)
[2018-12-02] MEDS ORDERED: Ketorolac INJ* 30 MG/ML 1 ML VIAL IV PUSH ONE (07:56)
[2018-12-02 08:11] LABS: ABS Basophils 0.1 10^3/ul (0-0.2); ABS Eosinophils 0.1 10^3/ul (0-0.6); ABS Lymphocytes 2.3 10^3/ul (1.0-4.8); ABS Monocytes 0.5 10^3/ul (0-0.8); ABS Neutrophils 6.5 10^3/ul (1.5-7.7); Eosinophil % 1.5 %; Hematocrit 41 % (35-47); Hemoglobin 13.9 g/dL (12.0-16.0); Lymphocyte % 24.3 %; Mean Corpuscular HGB Conc 34 g/dL (31-36); Mean Corpuscular Hemoglobin 30 pg (27-31); Mean Corpuscular Volume 87 fL (80-97); Mean Platelet Volume 8.3 fL (7.4-10.4); Platelet Count 278 10^3/uL (150-450); Red Blood Count 4.67 10^6 /uL (3.70-4.87); Red Cell Distribution Width 15 % (10-15); White Blood Count 9.5 10^3/uL (3.5-10.8)
[2018-12-02 08:34] LABS: Albumin 3.8 g/dL (3.2-5.2); Albumin/Globulin Ratio 1.3 (1-3); BUN/Creatinine Ratio 23.2 (8-20); C Reactive Protein 18.06 mg/L (<8.01); Calcium 9.1 mg/dL (8.6-10.3); EGFR African American 138.7 (>60); EGFR Non-African American 114.6 (>60); Globulin 2.9 g/dL (2-4); Total Bilirubin 0.5 mg/dL (0.2-1.0); Total Protein 6.7 g/dL (6.4-8.9)
[2018-12-02] MEDS ORDERED: Iodixanol* (CONTRAST) 320 MG/ML 100 ML SDV IV ONE (09:25)
[2018-12-02 12:29] LABS: Urine Appearance Cloudy; Urine Bacteria Absent (Absent); Urine Bilirubin Negative (Negative); Urine Blood 1+ (Negative); Urine Color Yellow; Urine Glucose 3+(>=500 mg/dL) (Negative); Urine Ketones 1+ (Negative); Urine Nitrite Negative (Negative); Urine Protein Negative (Negative); Urine Red Blood Cell 3+(>10/hpf) (Absent); Urine Specific Gravity 1.037 (1.010-1.030); Urine Urobilinogen Negative (Negative); Urine White Blood Cell Trace(0-5/hpf) (Absent)
[2018-12-02 12:46] VITALS: BP 129/107
== END 2018-12-02 12:45 | disposition home or self-care (01) ==
LOC: ED 07:30
DX: R10.32 Left lower quadrant pain (principal); E11.65 Type 2 diabetes mellitus with hyperglycemia; D64.9 Anemia, unspecified; E78.00 Pure hypercholesterolemia, unspecified; I10 Essential (primary) hypertension; J44.9 Chronic obstructive pulmonary disease, unspecified; K21.9 Gastro-esophageal reflux disease without esophagitis; F41.9 Anxiety disorder, unspecified; Z98.51 Tubal ligation status; N20.0 Calculus of kidney; Z79.4 Long term (current) use of insulin; Z79.899 Other long term (current) drug therapy; Z88.8 Allergy status to other drugs, medicaments and biological substances
CPT/HCPCS: 36415; 74177; 80053; 81003; 81015; 83605; 83690; 84484; 85025; 86140; 87086; 93005; 96361; 96374; 99284; A9270-GY; J1885; Q9967

== ENCOUNTER 2022-01-06 18:39 | Observation (INO) ==
[2022-01-06 19:44] LABS: Hematocrit 18 % (35-47); Hemoglobin 5.1 g/dL (12.0-16.0); Mean Corpuscular HGB Conc 28 g/dL (31-36); Mean Corpuscular Hemoglobin 18 pg (27-31); Mean Corpuscular Volume 65 fL (80-97); Mean Platelet Volume 7.2 fL (7.4-10.4); Platelet Count 501 10^3/uL (150-450); Red Cell Distribution Width 21 % (10-15); White Blood Count 14.2 10^3/uL (3.5-10.8)
[2022-01-06 19:55] LABS: INR 1.08 (0.89-1.11)
[2022-01-06 19:59] LABS: High Sens Troponin Baseline < 3 pg/mL (<15)
[2022-01-06 20:05] LABS: ALT 16 U/L (7-52); AST 15 U/L (13-39); Albumin 3.9 g/dL (3.2-5.2); Albumin/Globulin Ratio 1.2 (1-3); Alkaline Phosphatase 108 U/L (35-149); Anion Gap 7 mmol/L (2-11); Blood Urea Nitrogen 20 mg/dL (6-24); CO2 Carbon Dioxide 25 mmol/L (22-32); Calcium 8.8 mg/dL (8.6-10.3); Chloride 99 mmol/L (101-111); Globulin 3.2 g/dL (2-4); Glucose 115 mg/dL (70-100); Potassium 4.3 mmol/L (3.5-5.0); Sodium 131 mmol/L (135-145); Total Protein 7.1 g/dL (6.4-8.9); eGFR CKD-EPI 45.8 (>60)
[2022-01-06 20:33] LABS: ABS Basophils 0.1 10^3/ul (0-0.2); ABS Eosinophils 0.1 10^3/ul (0-0.6); ABS Lymphocytes 2.1 10^3/ul (1.0-4.8); ABS Monocytes 0.9 10^3/ul (0-0.8); ABS Neutrophils 11.1 10^3/ul (1.5-7.7); Eosinophil % 0.7 %; Hypochromasia 2+; Lymphocyte % 14.6 %; Microcytosis 3+
[2022-01-06 20:34] LABS: Polychromasia 1+
[2022-01-06 21:03] LABS: High Sensitivity Troponin 1 Hr 3 pg/mL (<15)
[2022-01-06] MEDS ORDERED: Dextrose 50% Syringe 50 ml 25 GM/50 ML SYRINGE IV PUSH PRN (23:21)
[2022-01-06 23:55] LABS: % Iron Saturation 4 % (15-55); Iron 22 ug/dL (50-212); Total Iron Binding Capacity 535 mcg/dL (250-450); Transferrin 382 mg/dL (203-362); Unsaturated Iron Binding 513 ug/dL
[2022-01-07 00:15] LABS: Ferritin 3.5 ng/mL (11-307)
[2022-01-07] MEDS ORDERED: Albuterol HFA INHALER 8 gm MDI INH PRN (01:14)
[2022-01-07 02:43] LABS: Urine Appearance Cloudy; Urine Bilirubin Negative (Negative); Urine Blood Negative (Negative); Urine Color Yellow; Urine Glucose Negative (Negative); Urine Ketones Negative (Negative); Urine Nitrite Negative (Negative); Urine Protein Negative (Negative); Urine Specific Gravity 1.008 (1.002-1.030); Urine Urobilinogen Negative (Negative)
[2022-01-07 08:56] LABS: ABS Basophils 0.1 10^3/ul (0-0.2); ABS Eosinophils 0.2 10^3/ul (0-0.6); ABS Lymphocytes 1.6 10^3/ul (1.0-4.8); ABS Monocytes 0.6 10^3/ul (0-0.8); ABS Neutrophils 7.5 10^3/ul (1.5-7.7); Eosinophil % 1.6 %; Hematocrit 23 % (35-47); Hemoglobin 6.8 g/dL (12.0-16.0); Lymphocyte % 16.2 %; Mean Corpuscular HGB Conc 30 g/dL (31-36); Mean Corpuscular Hemoglobin 20 pg (27-31); Mean Corpuscular Volume 68 fL (80-97); Mean Platelet Volume 7.2 fL (7.4-10.4); Platelet Count 464 10^3/uL (150-450); Red Blood Count 3.43 10^6 /uL (3.70-4.87); Red Cell Distribution Width 23 % (10-15); White Blood Count 9.9 10^3/uL (3.5-10.8)
[2022-01-07] MEDS ORDERED: Lisinopril/HCTZ 20/25 TAB (NF) PO SCH (09:00)
[2022-01-07] MEDS ORDERED: Pantoprazole VIAL 40 MG VIAL IV SCH ×2 (09:00)
[2022-01-07 09:07] LABS: Albumin 3.8 g/dL (3.2-5.2); Albumin/Globulin Ratio 1.3 (1-3); Calcium 8.7 mg/dL (8.6-10.3); Magnesium 2.1 mg/dL (1.9-2.7); Potassium 4.3 mmol/L (3.5-5.0); Total Bilirubin 0.6 mg/dL (0.2-1.0); Total Protein 6.8 g/dL (6.4-8.9); eGFR CKD-EPI 80.7 (>60)
[2022-01-07 09:20] LABS: TSH Ultra Thyroid Stim Horm 2.02 mcIU/mL (0.34-5.60)
[2022-01-07] MEDS ORDERED: Iron Dextran 25 MG in NS 0.9% 50 ML 50 ML IVPB ONE ×2 (09:37→10:15)
[2022-01-07] MEDS ORDERED: Influenza vaccine *QUAD* *2022-23* 0.5 ML SYRINGE IM ONE (10:00)
[2022-01-07] MEDS: CMCS: Desvenlafaxine 50 mg TAB (NF) PO SCH (10:02)
[2022-01-07] MEDS ORDERED: Permethrin 5% CREAM 1 TUBE TOPICAL ONE (10:30)
[2022-01-07] MEDS ORDERED: IRON DEXTRAN IVPB ONE (11:30)
[2022-01-07] MEDS ORDERED: NS 0.9% IVPB ONE (11:30)
[2022-01-07] MEDS ORDERED: Enoxaparin 40 MG/0.4 ML SYR SUBCUT SCH (16:00)
[2022-01-07] MEDS: Nystatin TOP POWDER 15 GM BTL TOPICAL SCH ×2 (16:03→21:06)
[2022-01-07 23:58] LABS: Hematocrit 27 % (35-47); Hemoglobin 7.9 g/dL (12.0-16.0)
[2022-01-08 07:44] LABS: Hematocrit 26 % (35-47); Hemoglobin 7.8 g/dL (12.0-16.0); Mean Corpuscular HGB Conc 31 g/dL (31-36); Mean Corpuscular Hemoglobin 21 pg (27-31); Mean Corpuscular Volume 70 fL (80-97); Mean Platelet Volume 7.2 fL (7.4-10.4); Platelet Count 430 10^3/uL (150-450); Red Blood Count 3.64 10^6 /uL (3.70-4.87); Red Cell Distribution Width 23 % (10-15); White Blood Count 8.5 10^3/uL (3.5-10.8)
[2022-01-08 08:02] LABS: CO2 Carbon Dioxide 24 mmol/L (22-32); Calcium 8.6 mg/dL (8.6-10.3); Chloride 104 mmol/L (101-111); Magnesium 2.3 mg/dL (1.9-2.7); Sodium 137 mmol/L (135-145)
[2022-01-08 08:08] LABS: Blood Urea Nitrogen 12 mg/dL (6-24); Glucose 122 mg/dL (70-100)
[2022-01-08 08:15] LABS: Anion Gap 9 mmol/L (2-11)
[2022-01-08] MEDS: CMCS: Desvenlafaxine 50 mg TAB (NF) PO SCH (08:50)
[2022-01-08] MEDS: Nystatin TOP POWDER 15 GM BTL TOPICAL SCH (08:51)
[2022-01-08 11:49] VITALS: BP 102/59
== END 2022-01-08 13:40 | disposition home or self-care (01) ==
LOC: EDHOLD 18:39 → ED 18:39 → SUATTDRO 22:47 → EDHOLD 01-07 01:52 → MEDTELE 01-07 02:12
PROVIDERS: ADMIT Internal Medicine; ATTEND Internal Medicine

== ENCOUNTER 2023-03-31 18:08 | Inpatient (IN) ==
[2023-03-31 20:20] LABS: ABS Basophils 0.1 10^3/uL (0.0-0.1); ABS Eosinophils 0.2 10^3/uL (0.0-0.5); ABS Lymphocytes 2.6 10^3/uL (1.0-4.8); ABS Monocytes 0.6 10^3/uL (0.0-0.9); ABS Neutrophils 9.9 10^3/uL (1.5-7.6); Eosinophil % 1.3 %; Hematocrit 39.7 % (35-45); Hemoglobin 13.1 g/dL (11.5-14.3); Lymphocyte % 19.4 %; Mean Corpuscular Hemoglobin 28.7 pg (27-33); Mean Corpuscular Volume 87.2 fL (80-97); Mean Platelet Volume 7.5 fL (7.5-11.2); Platelet Count 360 10^3/uL (150-450); Red Blood Count 4.56 10^6/uL (3.63-4.92); Red Cell Distribution Width 17.4 % (12-17); White Blood Count 13.4 10^3/uL (3.8-11.8)
[2023-03-31 20:43] LABS: Albumin 4.1 g/dL (3.2-5.2); Albumin/Globulin Ratio 1.1 (1-3); Calcium 9.5 mg/dL (8.6-10.3); Creatinine, Serum 1.02 mg/dL (0.51-0.95); Globulin 3.7 g/dL (2-4); Magnesium 2.1 mg/dL (1.9-2.7); Total Bilirubin 0.6 mg/dL (0.2-1.0); Total Protein 7.8 g/dL (6.4-8.9); eGFR CKD-EPI 65.4 (>60)
[2023-03-31] MEDS ORDERED: NS 0.9% 500 ml BAG 500 ML IV ONE (21:21)
[2023-03-31 22:04] LABS: High Sensitivity Troponin 1 Hr 4 pg/mL (<15)
[2023-03-31] MEDS ORDERED: cefTRIAXone VIAL 1,000 MG VIAL IVPB ONE (22:15)
[2023-03-31] MEDS ORDERED: Azithromycin 500 mg/250 ml NS 500 MG/250 ML BAG IVPB ONE (22:15)
[2023-03-31] MEDS ORDERED: cefTRIAXone 1 gm/50 mL D5W 1 GM/50 ML BAG IV ONE (22:42)
[2023-04-01 00:24] LABS: C Reactive Protein 67.81 mg/L (<8.01)
[2023-04-01] MEDS ORDERED: Ondansetron 4 mg VIAL 2 MG/ML 2 ml VIAL IV PRN (01:01)
[2023-04-01] MEDS ORDERED: Magnesium Hydroxide LIQ 30 ML UDC PO PRN (01:01)
[2023-04-01] MEDS ORDERED: Lactated Ringers 1000 ml BAG 1,000 ML IV ONE (01:01)
[2023-04-01] MEDS ORDERED: Dextrose 50% Syringe 50 ml 25 GM/50 ML SYRINGE IV PUSH PRN (01:35)
[2023-04-01] MEDS: Enoxaparin 40 MG/0.4 ML SYR SUBCUT SCH (02:50)
[2023-04-01 03:46] LABS: % Iron Saturation 13 % (15-55); .Transferrin 257 mg/dL (203-362); Iron 48 ug/dL (50-212); Total Iron Binding Capacity 360 mcg/dL (250-450); Unsaturated Iron Binding 312 ug/dL
[2023-04-01 04:07] LABS: Ferritin 111.5 ng/mL (11-307)
[2023-04-01 07:01] LABS: ABS Basophils 0.1 10^3/uL (0.0-0.1); ABS Eosinophils 0.2 10^3/uL (0.0-0.5); ABS Lymphocytes 2.4 10^3/uL (1.0-4.8); ABS Monocytes 0.7 10^3/uL (0.0-0.9); ABS Neutrophils 9.1 10^3/uL (1.5-7.6); Eosinophil % 1.3 %; Hematocrit 35.8 % (35-45); Hemoglobin 11.6 g/dL (11.5-14.3); Mean Corpuscular Hemoglobin 28.6 pg (27-33); Mean Corpuscular Hgb Conc 32.5 g/dL (31-36); Mean Corpuscular Volume 87.9 fL (80-97); Mean Platelet Volume 7.4 fL (7.5-11.2); Platelet Count 284 10^3/uL (150-450); Red Blood Count 4.07 10^6/uL (3.63-4.92); Red Cell Distribution Width 17.5 % (12-17); White Blood Count 12.5 10^3/uL (3.8-11.8)
[2023-04-01 08:24] LABS: Calcium 8.7 mg/dL (8.6-10.3); Creatinine, Serum 0.99 mg/dL (0.51-0.95); eGFR CKD-EPI 67.8 (>60)
[2023-04-01] MEDS: CMCS: Desvenlafaxine 50 mg TAB ER (NF) PO SCH (08:59)
[2023-04-01] MEDS: Fluticasone NASAL SPRAY 50MCG 16 gm SPRAY BTL INTRANASAL SCH (08:59)
[2023-04-01 15:25] LABS: LDH 197 U/L (140-271)
[2023-04-01 15:51] LABS: Folate > 20.00 ng/mL (5.90-24.80)
[2023-04-01 15:52] LABS: Vitamin B12 386 pg/mL (180-914)
[2023-04-01] MEDS ORDERED: Zinc Oxide 16% PASTE (Butt Paste) 30 gm TUBE TOPICAL PRN (17:10)
[2023-04-01] MEDS: Nystatin TOP POWDER 15 GM BTL TOPICAL SCH (21:59)
[2023-04-02] MEDS ORDERED: cefTRIAXone 1 gm/50 mL D5W 1 GM/50 ML BAG IV SCH
[2023-04-02] MEDS: cefTRIAXone 1 gm/50 mL D5W 1 GM/50 ML BAG IV SCH (00:27)
[2023-04-02] MEDS: Enoxaparin 40 MG/0.4 ML SYR SUBCUT SCH (06:04)
[2023-04-02 08:47] LABS: Hematocrit 38.7 % (35-45); Hemoglobin 12.6 g/dL (11.5-14.3); Mean Corpuscular Hemoglobin 28.6 pg (27-33); Mean Corpuscular Hgb Conc 32.5 g/dL (31-36); Mean Platelet Volume 7.2 fL (7.5-11.2); Platelet Count 319 10^3/uL (150-450); Red Cell Distribution Width 17.4 % (12-17); White Blood Count 11.4 10^3/uL (3.8-11.8)
[2023-04-02] MEDS ORDERED: SPIRIVA Respimat (tiotropium) 2.5 mcg/inh Inhaler INH SCH (09:00)
[2023-04-02 09:05] LABS: Albumin 3.7 g/dL (3.2-5.2); Calcium 8.8 mg/dL (8.6-10.3); Creatinine, Serum 0.79 mg/dL (0.51-0.95); Globulin 3.6 g/dL (2-4); Potassium 4.1 mmol/L (3.5-5.0); Total Bilirubin 0.4 mg/dL (0.2-1.0); Total Protein 7.3 g/dL (6.4-8.9); eGFR CKD-EPI 88.8 (>60)
[2023-04-02] MEDS: CMCS: Desvenlafaxine 50 mg TAB ER (NF) PO SCH (09:44)
[2023-04-02] MEDS: Nystatin TOP POWDER 15 GM BTL TOPICAL SCH ×3 (09:46→20:35)
[2023-04-02] MEDS: Fluticasone NASAL SPRAY 50MCG 16 gm SPRAY BTL INTRANASAL SCH (09:46)
[2023-04-03] MEDS: cefTRIAXone 1 gm/50 mL D5W 1 GM/50 ML BAG IV SCH (00:45)
[2023-04-03] MEDS: Enoxaparin 40 MG/0.4 ML SYR SUBCUT SCH (05:34)
[2023-04-03] MEDS: CMCS: Desvenlafaxine 50 mg TAB ER (NF) PO SCH (08:08)
[2023-04-03] MEDS: Nystatin TOP POWDER 15 GM BTL TOPICAL SCH ×2 (08:09→14:33)
[2023-04-03] MEDS: Fluticasone NASAL SPRAY 50MCG 16 gm SPRAY BTL INTRANASAL SCH (08:09)
[2023-04-03 08:23] LABS: Hematocrit 36.9 % (35-45); Hemoglobin 12.3 g/dL (11.5-14.3); Mean Corpuscular Hemoglobin 29.1 pg (27-33); Mean Corpuscular Hgb Conc 33.3 g/dL (31-36); Mean Corpuscular Volume 87.4 fL (80-97); Mean Platelet Volume 7.4 fL (7.5-11.2); Platelet Count 324 10^3/uL (150-450); Red Blood Count 4.22 10^6/uL (3.63-4.92); Red Cell Distribution Width 17.2 % (12-17); White Blood Count 10.7 10^3/uL (3.8-11.8)
[2023-04-03 08:41] LABS: Albumin 3.7 g/dL (3.2-5.2); Albumin/Globulin Ratio 1.1 (1-3); Calcium 8.6 mg/dL (8.6-10.3); Creatinine, Serum 0.75 mg/dL (0.51-0.95); Globulin 3.3 g/dL (2-4); Total Bilirubin 0.4 mg/dL (0.2-1.0); eGFR CKD-EPI 94.5 (>60)
[2023-04-03 14:17] VITALS: BP 112/77
== END 2023-04-03 15:45 | disposition home or self-care (01) | DRG 871 ==
LOC: ED 18:08 → EDHOLD 18:08 → SUATTDRO 23:49 → MED 04-01 11:51
PROVIDERS: ADMIT Internal Medicine; ATTEND Student in an Organized Health Care Education/Training Program